=== PATIENT | female | born 1960 | race Caucasian/White ===

== ENCOUNTER → 2018-05-03 11:33 | Outpatient (CLI) | payer BC, SELFPAY ==
[2018-05-03 12:03] LABS: Abs Immature Grans 0.01 k/cumm (0.0-0.09); Absolute Basophil Count 0.02 k/cumm (0.0-0.2); Absolute Eosinophil Count 0.18 k/cumm (0.0-0.7); Absolute Lymphocyte Count 1.94 k/cumm (1.2-3.4); Absolute Monocyte Count 0.58 k/cumm (0.11-0.7); Absolute Neutrophil Count 5.26 k/cumm (1.2-6.7); Basophils % 0.3; Eosinophils % 2.3; HCT 36.7 % (36.0-46.0); HGB 12.2 g/dL (12.0-15.5); Immature Grans % 0.1; Lymphocytes % 24.3; Mean Corp. HGB Concentration 33.2 g/dL (32.0-36.0); Mean Corpuscular Hemoglobin 28.8 pg (27.0-33.0); Mean Corpuscular Volume 86.8 fL (80-95); Mean Platelet Volume 9.5 fL (8.0-11.0); Monocytes % 7.3; Neutrophils % 65.7; Platelet Count 271 x1000/uL (130-400); RBC 4.23 m/cumm (4.00-5.20); RBC Distribution Width 14.5 % (11.7-14.6); White Blood Cell Count 7.99 k/cumm (4.4-10.8)
[2018-05-03 12:15] LABS: ALT 26 U/L (12-78); AST 18 U/L (15-37); Albumin 3.4 g/dL (3.4-5.0); Alkaline Phosphatase 98 U/L (46-116); Anion Gap 8.8 mmol/L (3-11); BUN 20 mg/dL (7-18); Bilirubin, Total 0.9 mg/dL (0.2-1.0); CO2 25.2 mmol/L (21.0-32.0); CREATININE 0.87 mg/dL (0.55-1.02); Calcium 9.1 mg/dL (8.5-10.1); Chloride 104 mmol/L (98-107); Glucose 97 mg/dL (70-100); Sodium 138 mmol/L (136-145); Total Protein 7.3 g/dL (6.4-8.2)
[2018-05-03 12:21] LABS: Hemoglobin A1C 5.8 % (4.5-6.2)
[2018-05-03 12:22] LABS: COMMENT (LAB VIEW ONLY) 77.25 mg/dL; Microalb ug/mg Crea 3.8 ug/mg Cr
== END ==
PROVIDERS: PCP Family Medicine; Visit Provider Internal Medicine Medical Oncology
DX: E11.9 Type 2 diabetes mellitus without complications (principal); I10 Essential (primary) hypertension; D64.9 Anemia, unspecified; C50.411 Malignant neoplasm of upper-outer quadrant of right female breast; Z17.1 Estrogen receptor negative status [ER-]
CPT/HCPCS: 36415; 80053; 85027; 82043; 82570; 83036; 85025

== ENCOUNTER 2018-06-10 00:16 | Outpatient (CLI) | payer BC, SELFPAY ==
--- NOTE | 2018-06-10 10:29 | DI.US_ITS ---
SYMPTOMS/DIAGNOSIS: SWELLING, ? DVT, LYMPH EDEMA, I89.0, MALIGNANT NEOPLASM OF THORAX, C76.1, MALIGNANT NEOPLASM OF BREAST, C50.919 RIGHT UPPER EXTREMITY ULTRASOUND: Comparison is made with chest CT dated . The patient has had prior axillary dissection as well as right mastectomy. There is no evidence of deep venous thrombosis from the neck to the elbow. A cystic area measuring 2.2 x 0.8 x 1.5 cm is seen anterior to the right shoulder. It appears to represent fluid around the upper biceps tendon sheath. No adenopathy or suspicious mass is seen. IMPRESSION: No evidence of deep venous thrombosis or superficial venous thrombosis. There is fluid around the biceps tendon which could be within normal limits or could represent tenosynovitis.
== END 2018-06-10 00:36 ==
PROVIDERS: PCP Family Medicine; Visit Provider Family Medicine
DX: C76.1 Malignant neoplasm of thorax (principal); I89.0 Lymphedema, not elsewhere classified; C50.919 Malignant neoplasm of unspecified site of unspecified female breast; R22.31 Localized swelling, mass and lump, right upper limb
CPT/HCPCS: 93971

== ENCOUNTER 2018-06-10 10:07 | Outpatient (CLI) | payer BC, SELFPAY ==
[2018-06-10 10:46] LABS: Abs Immature Grans 0.01 k/cumm (0.0-0.09); Absolute Basophil Count 0.03 k/cumm (0.0-0.2); Absolute Eosinophil Count 0.19 k/cumm (0.0-0.7); Absolute Lymphocyte Count 1.98 k/cumm (1.2-3.4); Absolute Monocyte Count 0.38 k/cumm (0.11-0.7); Absolute Neutrophil Count 4.34 k/cumm (1.2-6.7); Basophils % 0.4; Eosinophils % 2.7; HCT 38.8 % (36.0-46.0); HGB 12.4 g/dL (12.0-15.5); Immature Grans % 0.1; Lymphocytes % 28.6; Mean Corpuscular Hemoglobin 27.9 pg (27.0-33.0); Mean Corpuscular Volume 87.4 fL (80-95); Mean Platelet Volume 9.7 fL (8.0-11.0); Monocytes % 5.5; Neutrophils % 62.7; Platelet Count 272 x1000/uL (130-400); RBC 4.44 m/cumm (4.00-5.20); RBC Distribution Width 13.9 % (11.7-14.6); White Blood Cell Count 6.93 k/cumm (4.4-10.8)
[2018-06-10 11:35] LABS: ALT 34 U/L (12-78); AST 24 U/L (15-37); Albumin 3.7 g/dL (3.4-5.0); Alkaline Phosphatase 112 U/L (46-116); Anion Gap 9.1 mmol/L (3-11); BUN 16 mg/dL (7-18); Bilirubin, Total 1.2 mg/dL (0.2-1.0); CO2 29.9 mmol/L (21.0-32.0); CREATININE 0.99 mg/dL (0.55-1.02); Calcium 9.4 mg/dL (8.5-10.1); Chloride 101 mmol/L (98-107); Estimated GFR 58.24 (mL/min/1.73m2); Glucose 92 mg/dL (70-100); Sodium 140 mmol/L (136-145); Total Protein 7.1 g/dL (6.4-8.2)
[2018-06-10 11:49] LABS: D-Dimer 548 ng/mlFEU (<500)
== END 2018-06-10 10:27 ==
PROVIDERS: PCP Family Medicine; Visit Provider Family Medicine
DX: I89.0 Lymphedema, not elsewhere classified (principal); C50.919 Malignant neoplasm of unspecified site of unspecified female breast; M79.89 Other specified soft tissue disorders
CPT/HCPCS: 36415; 80053; 85025; 85379

== ENCOUNTER 2018-09-12 11:08 | Outpatient (CLI) | payer BC, SELFPAY ==
[2018-09-12 13:22] LABS: HCT 38.6 % (36.0-46.0); HGB 12.8 g/dL (12.0-15.5); Mean Corp. HGB Concentration 33.2 g/dL (32.0-36.0); Mean Corpuscular Hemoglobin 28.4 pg (27.0-33.0); Mean Corpuscular Volume 85.6 fL (80-95); Mean Platelet Volume 10.3 fL (8.0-11.0); Platelet Count 263 x1000/uL (130-400); RBC 4.51 m/cumm (4.00-5.20); RBC Distribution Width 14.8 % (11.7-14.6); White Blood Cell Count 7.69 k/cumm (4.4-10.8)
[2018-09-12 13:38] LABS: ALT 36 U/L (12-78); AST 29 U/L (15-37); Albumin 3.7 g/dL (3.4-5.0); Alkaline Phosphatase 116 U/L (46-116); Anion Gap 7.7 mmol/L (3-11); BUN 15 mg/dL (7-18); Bilirubin, Total 1.7 mg/dL (0.2-1.0); CO2 30.3 mmol/L (21.0-32.0); CREATININE 0.84 mg/dL (0.55-1.02); Calcium 9.8 mg/dL (8.5-10.1); Chloride 102 mmol/L (98-107); Glucose 95 mg/dL (70-100); Potassium 3.9 mmol/L (3.5-5.1); Sodium 140 mmol/L (136-145); TSH (W/Ref FT4) 1.95 uIU/mL (0.358-3.74)
== END 2018-09-12 11:28 ==
PROVIDERS: PCP Family Medicine; Visit Provider Family Medicine
DX: I10 Essential (primary) hypertension (principal); D64.9 Anemia, unspecified; R53.83 Other fatigue
CPT/HCPCS: 36415; 80053; 85027; 84443

== ENCOUNTER 2018-12-19 08:12 | Outpatient (CLI) | payer BC, SELFPAY ==
[2018-12-19 08:27] LABS: Abs Immature Grans 0.01 k/cumm (0.0-0.09); Absolute Basophil Count 0.04 k/cumm (0.0-0.2); Absolute Eosinophil Count 0.18 k/cumm (0.0-0.7); Absolute Monocyte Count 0.48 k/cumm (0.11-0.7); Absolute Neutrophil Count 5.37 k/cumm (1.2-6.7); Basophils % 0.5; Eosinophils % 2.3; HCT 38.9 % (36.0-46.0); HGB 12.8 g/dL (12.0-15.5); Immature Grans % 0.1; Lymphocytes % 23.8; Mean Corp. HGB Concentration 32.9 g/dL (32.0-36.0); Mean Corpuscular Hemoglobin 28.2 pg (27.0-33.0); Mean Corpuscular Volume 85.7 fL (80-95); Mean Platelet Volume 9.8 fL (8.0-11.0); Neutrophils % 67.3; Platelet Count 261 x1000/uL (130-400); RBC 4.54 m/cumm (4.00-5.20); RBC Distribution Width 14.2 % (11.7-14.6); White Blood Cell Count 7.98 k/cumm (4.4-10.8)
[2018-12-19 08:39] LABS: ALT 26 U/L (12-78); AST 20 U/L (15-37); Albumin 3.6 g/dL (3.4-5.0); Alkaline Phosphatase 123 U/L (46-116); Anion Gap 11.2 mmol/L (3-11); BUN 17 mg/dL (7-18); Bilirubin, Total 1.4 mg/dL (0.2-1.0); CO2 26.8 mmol/L (21.0-32.0); CREATININE 0.89 mg/dL (0.55-1.02); Calcium 9.2 mg/dL (8.5-10.1); Chloride 101 mmol/L (98-107); Glucose 116 mg/dL (70-100); Potassium 3.7 mmol/L (3.5-5.1); Sodium 139 mmol/L (136-145); Total Protein 7.5 g/dL (6.4-8.2)
== END 2018-12-19 08:32 ==
PROVIDERS: PCP Family Medicine; Visit Provider Internal Medicine Medical Oncology
DX: C50.411 Malignant neoplasm of upper-outer quadrant of right female breast (principal); Z17.1 Estrogen receptor negative status [ER-]
CPT/HCPCS: 36415; 80053; 85025

== ENCOUNTER 2019-05-20 05:12 | Emergency (ER) | payer BC, SELFPAY ==
[2019-05-20 05:17] VITALS: BP 130/77; PULSE 77; RESP 17; TEMP 36.1; O2SAT 96
--- NOTE | 2019-05-20 05:29 | W.ED.GENAD ---
Discharge Plan Disposition Patient Disposition: HOME Condition: Good Discharge Details Chief Complaint: RespSymp Clinical Impression: Acute streptococcal pharyngitis Primary Care Provider: Smita Quintero ED Provider: Flo Omalley [place] Meds and New Rx's Prescriptions: New azithromycin 250 mg tablet 250 mg PO DAILY 4 Days Qty: 4 RF: 0 Continued escitalopram oxalate 20 mg tablet 20 mg PO HS Qty: 90 RF: 5 CALCIUM/MAG OXIDE/ZN 2 tab PO DAILY RF: 0 ibuprofen 800 MG tablet 800 mg PO QID PRNRF: 0 albuterol sulfate [ProAir HFA] 8.5 GM HFA aerosol inhaler 1 - 2 puff Inhalation Q6H PRN Qty: 1 RF: 12 metformin 1,000 mg tablet 1,000 mg PO DAILY Qty: 90 RF: 4 hydrochlorothiazide 12.5 mg tablet 12.5 mg PO DAILY Qty: 90 RF: 12 Discharge Instructions Instructions: Strep Throat (ED) Additional Instructions: Take antibiotics as prescribed. Use ibuprofen or acetaminophen for pain and fever. Cepacol lozenges to help with throat discomfort. Salt water gargles will likely help with throat discomfort as well. Drink plenty of fluids and stay hydrated. Follow-up with primary care next week. Return to ED for difficulty breathing, inability to swallow, mental status changes, other concerns or problems. Referrals: Smita Quintero MD, [place] [Primary Care Provider] - Medical Decision Making Patient presenting with upper respiratory symptoms with chief complaint of sore throat and left ear pain. She is not febrile. Vital signs are normal. Her pulse oximetry is normal. Her left ear is erythematous and opacified. Her oropharynx is erythematous with posterior oral pharyngeal exudate and asymmetrical swelling. She complains of significant throat pain. Concern for retropharyngeal abscess. Will place IV and start her on fluid hydration. Morphine for pain. Laboratory studies to include CBC and BMP. Will obtain CT of the neck with IV contrast as well as chest x-ray. Patient rapid strep is positive. Patient has anaphylaxis to penicillin. She has intolerance to clindamycin with persistent vomiting and diarrhea. Will treat with IV azithromycin while waiting for CT scan to be completed. If there is no abscess will dose with Decadron and plan discharge on a azithromycin. CT scan shows no evidence of retropharyngeal abscess. Epiglottis is normal. Chest x-ray without consolidation. Soft tissue density felt to be mass versus hiatal hernia. Patient reports known hiatal hernia. Laboratory studies unremarkable other than elevated white count. Patient will finish the IV Zithromax. She will receive a dose of IV Decadron. She will be discharged home on a azithromycin to 50 mg p.o. daily for 4 days. She may use ibuprofen and acetaminophen for pain. Cepacol lozenges for throat comfort. Push fluids to stay hydrated. Follow-up with primary care next week. Return to ED for mental status changes, inability to swallow, difficulty breathing. Lab Data Lab results reviewed: Yes I reviewed the patient's lab results. HPI General Mode of arrival: ambulatory. Date/Time Provider Initiated Documentation: 05/20/19 05:27. Limitations to Documentation: no limitations. Information obtained by: patient. HPI Narrative: Patient presents to ED with complaint of sore throat and left ear pain. Patient reports not feeling well for the last week or so. She has had more fatigue and weakness than usual. She occasionally feels short of breath. On Wednesday she developed sore throat, congestion, cough, left ear pain. She was leaving for vacation that day. She came back early because she felt so unwell. She now has significant throat pain to the point where even swallowing water causes significant discomfort. She has had no fever that she is aware of. She has had no sweats or chills. She denies any GI symptoms. She has some chronic right-sided chest pain from her previous surgeries and cancer. This is been a little worse over the last month or so. She has tried [id number] medications including ibuprofen without relief of pain and presents now for evaluation. Related Data Home Medications Medication Instructions Recorded Confirmed Calcium/Mag Oxide/Zn 2 tab PO DAILY 02/27/13 05/20/19 ibuprofen 800 mg PO QID PRN tab-cap 05/28/16 05/20/19 albuterol sulfate [ProAir HFA] 1 - 2 puff INHALATION Q6H PRN #1 01/20/18 05/20/19 inhaler escitalopram oxalate 20 mg tablet 20 mg PO HS #90 tab 10/24/18 05/20/19 hydrochlorothiazide 12.5 mg tablet 12.5 mg PO DAILY #90 tab-cap 02/09/19 05/20/19 metformin 1,000 mg tablet 1,000 mg PO DAILY #90 tab-cap 02/09/19 05/20/19 azithromycin 250 mg PO DAILY 4 Days #4 tab 05/20/19 Previous Rx's Medication Instructions Recorded albuterol sulfate [ProAir HFA] 1 - 2 puff INHALATION Q6H PRN #1 01/20/18 inhaler escitalopram oxalate 20 mg tablet 20 mg PO HS #90 tab 10/24/18 hydrochlorothiazide 12.5 mg tablet 12.5 mg PO DAILY #90 tab-cap 02/09/19 metformin 1,000 mg tablet 1,000 mg PO DAILY #90 tab-cap 02/09/19 azithromycin 250 mg PO DAILY 4 Days #4 tab 05/20/19 Allergies Allergy/AdvReac Type Severity Reaction Status Date / Time Penicillins Allergy Severe Anaphylaxsi Unverified 05/01/19 13:22 s clindamycin AdvReac Severe N/V Unverified 05/01/19 13:22 codeine AdvReac Unknown Nausea Unverified 05/01/19 13:22 Sulfa (Sulfonamide AdvReac Unknown GI Unverified 05/01/19 13:22 Antibiotics) MOLDS/SMUTS Allergy Mild CONGESTION Uncoded 05/01/19 13:22 CAT/FELINE Allergy Unknown Nausea Uncoded 05/01/19 13:22 General Stated Complaint: RespSymp ISAAK: 3 Review of Systems Review of Systems 07/10 Review of Systems completed and is negative except as stated above in HPI (Systems reviewed: Const, Eyes, ENT, Resp, CV, GI, , MSK, Skin, Neuro) [facility], [facility] Medical History Abnormal cervical Papanicolaou smear (Resolved) Anemia (Resolved 09/06/17) Asthma (Chronic) Closed fracture of one rib (Resolved) Depressive disorder (Chronic 08/26/93) Diabetes Essential hypertension (Chronic 11/03/13) Hx of malignant neoplasm of breast Hypokalemia (Resolved) 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) Malignant neoplasm of female breast (Chronic 06/23/10) Migraine (Chronic) Obesity, Class III, BMI 40-49.9 (morbid obesity) Palliative care patient (Chronic) Peripheral neuropathy (Chronic 05/14/14) 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) Spinal stenosis of lumbar region (Chronic 09/18/14) Surgical History (Updated 05/20/19 @ 05:50 by Vinita Luis) Biopsy, Soft Tissue (02/12/17) Breast, Lumpectomy Breast, Mastectomy Cervical Procedure (~1999) section Colonoscopy - IV Sedation (04/26/13) Endometrial Ablation (~2003) History of mastectomy (Chronic) knee repair (~08/2011) Status post colposcopy (Resolved) Tonsillectomy Tooth extraction Social History Smoking/Tobacco Use Status: Never Alcohol Intake: current Alcohol Intake frequency: holidays/special occasions only Alcohol type: beer and wine Drug use: Never Substance use type: former substance user Date of last use: as a teenager and marijuana Caregiver/Support person: No Household members: children Housing: house Communication Needs: None Do you need help understanding health information?: Rarely Pets and animals: Yes Pets and animals: cat(s) Sexually active: No Do you think of yourself as: straight/heterosexual Current gender identity: female What is your relationship status?: How often do you talk on the phone with friends or family?: three or more times per week How often do you get together with friends or relatives?: decline to answer How often do you attend sikh or uatsdin services?: decline to answer Do you belong to any clubs or organized social groups?: yes Panel score (0-1 are the most socially isolated patients): 2 What type of physical activity do you participate in: walking and swimming Duration: 15-30 minutes/day Frequency: 5-6 times per week Zabrina/Rastafarian: No preference Seatbelt use: always Drive intox or ride w/intox ross carrier driver: No Do you feel safe at home: Yes Do you feel safe in your relationship?: Yes Exam Narrative Exam Narrative: Vitals: Afebrile here. Vital signs are normal. Pulse oximetry is normal. Const: Obese female in NAD. HEENT: NC/AT. Normal facial exam. Right TM mildly erythematous. Left TM is erythematous and opacified. OP with erythema present. Exudate posterior with asymmetric swelling of the posterior oropharynx. Eyes: Normal conjunctiva and sclera. Neck: Supple. Trachea midline. Lungs: Normal respiratory effort. Lungs are clear. Cor: RRR without murmur/gallop. Good radial pulses. Neuro: A+O x 3. CN grossly in tact. Good strength and no focal deficit. Skin: Warm and dry without rash. Course Vital Signs Temperature 97.0 F L 05/20/19 05:17 Pulse 77 05/20/19 05:17 Respiratory Rate 17 05/20/19 05:17 Blood Pressure 130/77 05/20/19 05:17 Pulse Oximetry 96 05/20/19 05:17 Temperature 97.0 F L 05/20/19 05:17 Temperature Source Skin 05/20/19 05:17 Pulse 77 05/20/19 05:17 Respiratory Rate 17 05/20/19 05:17 Blood Pressure 130/77 05/20/19 05:17 Pulse Oximetry 96 05/20/19 05:17 Oxygen Delivery Method Room Air 05/20/19 05:17 Oxygen Flow Rate 0 05/20/19 05:17 Pain Level 10 05/20/19 05:17
--- NOTE | 2019-05-20 05:48 | DI.CT_ITS ---
SYMPTOM/DIAGNOSIS: SORE THROAT, POSTERIOR OP SWELLING CT NECK: Post contrast exam was performed. There is scarring at the right lung apex. There is mucous retention within ethmoid sinuses as well as at the floors of the maxillary sinuses. The mastoid air cells appear clear. The parotid and submandibular as well as thyroid glands are unremarkable. There is some prominence of the adenoids but no evidence of a drainable abscess or fluid collection. There are small, symmetric bilateral cervical lymph nodes. There are degenerative changes in the cervical spine. An incidental note is made of an empty sella. The visualized portions of the brain are unremarkable. IMPRESSION: Mildly prominent adenoids. No evidence of an abscess or evidence of chronic sinus disease.
--- NOTE | 2019-05-20 05:52 | DI.RAD_ITS ---
SYMPTOM/DIAGNOSIS: COUGH PA AND LATERAL CHEST: Comparison is made with 24 July 2017. The heart size is within normal limits. The aorta is mildly tortuous. There is a small hiatal hernia. The lungs appear clear. The patient is status post right mastectomy. There are surgical clips in the right axilla. IMPRESSION: No acute abnormality.
[2019-05-20 06:31] LABS: Abs Immature Grans 0.04 k/cumm (0.0-0.09); Absolute Basophil Count 0.03 k/cumm (0.0-0.2); Absolute Eosinophil Count 0.27 k/cumm (0.0-0.7); Basophils % 0.2; Eosinophils % 1.7; HCT 37.5 % (36.0-46.0); HGB 12.1 g/dL (12.0-15.5); Immature Grans % 0.3; Lymphocytes % 10.5; Mean Corp. HGB Concentration 32.3 g/dL (32.0-36.0); Mean Corpuscular Hemoglobin 27.2 pg (27.0-33.0); Mean Corpuscular Volume 84.3 fL (80-95); Monocytes % 7.6; Neutrophils % 79.7; Platelet Count 250 x1000/uL (130-400); RBC 4.45 m/cumm (4.00-5.20); RBC Distribution Width 15.3 % (11.7-14.6); White Blood Cell Count 15.98 k/cumm (4.4-10.8)
[2019-05-20 06:34] LABS: Absolute Lymphocyte Count 1.68 k/cumm (1.2-3.4); Absolute Monocyte Count 1.21 k/cumm (0.11-0.7); Absolute Neutrophil Count 12.74 k/cumm (1.2-6.7)
[2019-05-20] MEDS: MORPHine 10 MG/ML VIAL 2 MG IVP (06:34)
[2019-05-20] MEDS: Normal Saline 1,000 ML 1000 ML IV (06:35)
[2019-05-20 06:46] LABS: Anion Gap 10.6 mmol/L (3-11); BUN 19 mg/dL (7-18); CO2 26.4 mmol/L (21.0-32.0); Calcium 9.3 mg/dL (8.5-10.1); Chloride 105 mmol/L (98-107); Glucose 156 mg/dL (70-100); Potassium 3.4 mmol/L (3.5-5.1); Sodium 142 mmol/L (136-145)
--- NOTE | 2019-05-20 06:56 | NUR.NOTE ---
Azythromycin requested via telephone from pharmacy. advised med has been ordered with verbal understanding.Nursing Note:
[2019-05-20] MEDS: Omnipaque 350 MG/ML 100 ML BTL IJ (07:13)
[2019-05-20] MEDS: Normal Saline Flush 10 ML SYR IVP (07:14)
[2019-05-20] MEDS: AZITHROMYCIN 500 MG in Normal Saline 250 ML 250 MG IVPB (07:27)
--- NOTE | 2019-05-20 07:39 | DI.VRAD_ITS ---
EXAM: CT Neck With Contrast EXAM DATE/TIME: 05/20/2019 5:52 AM CLINICAL HISTORY: 58 years old, female; Other: Sorethroat, posterior op swelling TECHNIQUE: Imaging protocol: Computed tomography images of the neck with intravenous contrast. Radiation optimization: All CT scans at this facility use at least one of these dose optimization techniques: automated exposure control; mA and/or kV adjustment per patient size (includes targeted exams where dose is matched to clinical indication); or iterative reconstruction. Contrast material: OMNIPAQUE 350; Contrast volume: 100 ml; Contrast route: IV; COMPARISON: No relevant prior studies available. FINDINGS: Sinuses: There is a cyst or polyp in the left maxillary sinus. There is soft tissue opacification of some of the ethmoid air cells bilaterally. There is minimal mucoperiosteal thickening involving the maxillary sinuses bilaterally. Nasopharynx: Normal. Oropharynx: Minimal soft tissue changes are seen at the base of the tongue, possibly lymphatic tissue. Hypopharynx: Normal. Larynx: Normal. Normal epiglottis. Retropharyngeal space: Normal. Submandibular/Parotid glands: Normal. Glands are normal in size. Thyroid: Normal. No enlarged or calcified nodules. Lymph nodes: Normal. No lymphadenopathy. Trachea: Visualized trachea is unremarkable. Lungs: Soft tissue changes are seen in the right upper lobe suggesting fibrosis or subsegmental atelectasis. Vasculature: Accessory hemiazygos vein is noted. Bones/joints: There is narrowing of the intervertebral disc spaces at C4-5-6 consistent with degenerative disease. There is spondylosis of the cervical spine. Soft tissues: Empty sella is noted. IMPRESSION: 1. No pulmonary embolus. 2. Mild ethmoid and maxillary sinusitis. 3. Left maxillary sinus cyst or polyp. 4. Degenerative changes of the cervical spine. 5. Minimal soft tissue changes at the base of the tongue, possibly representing adenoids. Dictated and Authenticated by: Jay Leon MD. Ordering:BRUCE Rossi MD
--- NOTE | 2019-05-20 07:43 | DI.VRAD_ITS ---
EXAM: XR Chest, 2 Views EXAM DATE/TIME: 05/20/2019 7:19 AM CLINICAL HISTORY: 58 years old, female; Other: Cough TECHNIQUE: Imaging protocol: XR of the chest, 2 views. COMPARISON: [facility] PORTABLE CHEST ONE VIEW 07/24/2017 9:12 AM FINDINGS: Lungs: Unremarkable. No consolidation. Pleural space: Unremarkable. No pleural effusion. No pneumothorax. Heart/Mediastinum: Soft tissue density is seen superimposed over the medial aspect of the left lower lobe, a finding not present on the previous study, hiatus hernia or mass. Bones/joints: Unremarkable. Soft tissues: The patient is status post right mastectomy with surgical clips in the right axilla. IMPRESSION: Soft tissue density at the left base medially, suggesting mass or hiatus hernia. Status post right mastectomy. Dictated and Authenticated by: Jay Leon MD. Ordering:BRUCE Rossi MD
[2019-05-20] MEDS: Dexamethasone 10 MG/ML VIAL IVP (07:51)
[2019-05-20 08:24] VITALS: BP 127/84; PULSE 76; RESP 16; TEMP 36.6; O2SAT 96
== END 2019-05-20 08:34 | disposition home or self-care (01) ==
PROVIDERS: Emergency Provider Emergency Medicine; PCP Family Medicine
DX: J02.0 Streptococcal pharyngitis (principal); H92.02 Otalgia, left ear; E11.9 Type 2 diabetes mellitus without complications; Z79.84 Long term (current) use of oral hypoglycemic drugs; I10 Essential (primary) hypertension
CPT/HCPCS: 36415; 70491; 80048; 87880; 96361; 96365; 96375; 99285; 71046; 85025; 99284; J0456; J1100; J2270; J3490

== ENCOUNTER 2019-06-20 08:07 | Outpatient (CLI) | payer BC, SELFPAY ==
[2019-06-20 08:56] LABS: Abs Immature Grans 0.01 k/cumm (0.0-0.09); Absolute Basophil Count 0.02 k/cumm (0.0-0.2); Absolute Eosinophil Count 0.16 k/cumm (0.0-0.7); Absolute Lymphocyte Count 1.97 k/cumm (1.2-3.4); Absolute Monocyte Count 0.39 k/cumm (0.11-0.7); Absolute Neutrophil Count 4.43 k/cumm (1.2-6.7); Basophils % 0.3; Eosinophils % 2.3; HCT 36.6 % (36.0-46.0); Immature Grans % 0.1; Lymphocytes % 28.2; Mean Corp. HGB Concentration 32.8 g/dL (32.0-36.0); Mean Corpuscular Hemoglobin 27.9 pg (27.0-33.0); Mean Corpuscular Volume 85.1 fL (80-95); Mean Platelet Volume 9.3 fL (8.0-11.0); Monocytes % 5.6; Neutrophils % 63.5; Platelet Count 315 x1000/uL (130-400); RBC Distribution Width 15.5 % (11.7-14.6); White Blood Cell Count 6.98 k/cumm (4.4-10.8)
[2019-06-20 09:30] LABS: ALT 27 U/L (14-59); AST 20 U/L (15-37); Albumin 3.4 g/dL (3.4-5.0); Alkaline Phosphatase 97 U/L (46-116); BUN 13 mg/dL (7-18); Bilirubin, Total 1.3 mg/dL (0.2-1.0); CO2 25.2 mmol/L (21.0-32.0); CREATININE 0.84 mg/dL (0.55-1.02); Calcium 8.9 mg/dL (8.5-10.1); Glucose 106 mg/dL (70-100); Total Protein 6.8 g/dL (6.4-8.2)
[2019-06-20 09:46] LABS: Sodium 140 mmol/L (136-145)
[2019-06-20 09:47] LABS: Chloride 104 mmol/L (98-107); Potassium 3.8 mmol/L (3.5-5.1)
[2019-06-20 09:53] LABS: Anion Gap 10.8 mmol/L (3-11)
== END 2019-06-20 08:27 ==
PROVIDERS: PCP Family Medicine
DX: C50.911 Malignant neoplasm of unspecified site of right female breast (principal); Z17.1 Estrogen receptor negative status [ER-]
CPT/HCPCS: 36415; 80053; 85025

== ENCOUNTER 2019-07-08 13:14 | Emergency (ER) | payer BC, SELFPAY ==
[2019-07-08 13:30] VITALS: BP 127/83; RESP 18; TEMP 36.7; O2SAT 96
--- NOTE | 2019-07-08 15:35 | ED.GENADUL_ITS ---
Discharge Plan Disposition Patient Disposition: HOME Condition: Good Discharge Details Chief Complaint: EyeProblem Clinical Impression: Foreign body in eye Primary Care Provider: Smita Quintero ED Provider: Zaina Yousif Home Meds and New Rx's Prescriptions: Continued escitalopram oxalate 20 mg tablet 20 mg PO HS Qty: 90 RF: 5 prednisone 20 mg tablet 20 mg PO BID Qty: 10 RF: 0 CALCIUM/MAG OXIDE/ZN 2 tab PO DAILY RF: 0 ibuprofen 800 MG tablet 800 mg PO QID PRNRF: 0 albuterol sulfate [ProAir HFA] 8.5 GM HFA aerosol inhaler 1 - 2 puff Inhalation Q6H PRN Qty: 1 RF: 12 metformin 1,000 mg tablet 1,000 mg PO DAILY Qty: 90 RF: 4 hydrochlorothiazide 12.5 mg tablet 12.5 mg PO DAILY Qty: 90 RF: 12 Discharge Instructions Instructions: Erythromycin (Into the eye), Eye Foreign Body (ED) Additional Instructions: Please use the erythromycin ointment 1/2 inch to left eye 4 times daily for the next 5 days. Please call ophthalmology Wednesday to schedule reevaluation. If you develop discharge, fevers, visual changes, increased pain or other new/worsening symptoms please seek care urgently once again. Referrals: [facility] [Outside] Smita Quintero MD, [place] [Primary Care Provider] - Discharge Data Discharge Date/Time-TO BE ENTERED AT DEPARTURE: 07/08/19 16:03 Medical Decision Making Patient is a 59-year-old female presents today with chief complaint of left eye irritation. She reports that this is how she is felt historically when she has had pinkeye. States she awoke this morning and noted the eye to be crusted. States that it was slightly irritated yesterday evening but that the symptoms have progressed throughout the course the day. Does not wear contacts, no corrective lenses. Denies any change in her vision. Has noted the eye to be tearing throughout the course of the day. Feels that the eyes red. Pain worse prior to arrival and when using it. On exam, patient is resting comfortably. She is looking at her phone does not appear to be in any discomfort with her eyes. She has no injection, no disc harge. Pupils are equal and reactive. Patient was numbed with tetracaine, had full resolution of her discomfort. She was then stained with foreseen and evaluated with a slit lamp. A small cat hair was noted in the eye. This is able to be removed with Q-tip. Otherwise, no abnormalities. However, it has been in over the past 24 hours feel that treatment with erythromycin ointment follow-up with ophthalmology is appropriate. She is given strict return precautions. Initial dosing of erythromycin and to be dispensed, given the patient's with instructions. All of her questions and concerns were addressed and she is agreement this plan. HPI General Mode of arrival: ambulatory . Date/Time Provider Initiated Documentation: 07/08/19 14:47 . Limitations to Documentation: no limitations . Information obtained by: patient and RN notes reviewed . History of Present Illness 59 year old F presents to the emergency department with the chief complaint of left eye irritation, described as moderate, with intensity rated at 7. Quality is described as aching (itching), and is localized to the eyes. Patient reports no radiation. Patient started experiencing this day(s) (1) and it has been constant. No relieving factors improve symptom(s), No exacerbating factors reported . Patient notes no other symptoms.. Patient did receive the following treatments prior to arrival, none Related Data Home Medications Medication Instructions Recorded Confirmed Calcium/Mag Oxide/Zn 2 tab PO DAILY 02/27/13 05/23/19 ibuprofen 800 mg PO QID PRN tab-cap 05/28/16 05/23/19 albuterol sulfate [ProAir HFA] 1 - 2 puff INHALATION Q6H PRN #1 01/20/18 05/23/19 inhaler escitalopram oxalate 20 mg tablet 20 mg PO HS #90 tab 10/24/18 05/23/19 hydrochlorothiazide 12.5 mg tablet 12.5 mg PO DAILY #90 tab-cap 02/09/19 05/23/19 metformin 1,000 mg tablet 1,000 mg PO DAILY #90 tab-cap 02/09/19 05/23/19 prednisone 20 mg tablet 20 mg PO BID #10 tab 05/23/19 05/23/19 Previous Rx's Medication Instructions Recorded albuterol sulfate [ProAir HFA] 1 - 2 puff INHALATION Q6H PRN #1 01/20/18 inhaler escitalopram oxalate 20 mg tablet 20 mg PO HS #90 tab 10/24/18 hydrochlorothiazide 12.5 mg tablet 12.5 mg PO DAILY #90 tab-cap 02/09/19 metformin 1,000 mg tablet 1,000 mg PO DAILY #90 tab-cap 02/09/19 prednisone 20 mg tablet 20 mg PO BID #10 tab 05/23/19 Allergies Allergy/AdvReac Type Severity Reaction Status Date / Time Penicillins Allergy Severe Anaphylaxsi Unverified 05/23/19 15:37 s clindamycin AdvReac Severe N/V Unverified 05/23/19 15:37 codeine AdvReac Unknown Nausea Unverified 05/23/19 15:37 Sulfa (Sulfonamide AdvReac Unknown GI Unverified 05/23/19 15:37 Antibiotics) MOLDS/SMUTS Allergy Mild CONGESTION Uncoded 05/23/19 15:37 CAT/FELINE Allergy Unknown Nausea Uncoded 05/23/19 15:37 General Stated Complaint: EyeProblem ISAAK: 5 Review of Systems Constitutional Constitutional: Reports as per HPI, Denies chills, Denies fatigue, Denies feve r(s) and Denies headache(s) Eyes Eyes: Reports as per HPI ENT Ears, Nose, Mouth, and Throat: Denies headache(s) Cardiovascular Cardiovascular: Reports as per HPI, Denies chest pain and Denies lightheadedness Respiratory Respiratory: Denies cough Integumentary/Breasts Skin/Breast: Reports as per HPI, Denies rash, Denies skin pain and Denies skin swelling Neurologic Neurologic: Denies headache(s) and Denies radicular pain Endocrine Endocrine: Denies fatigue [facility] Medical History Abnormal cervical Papanicolaou smear (Resolved) 09/27/99 Anemia (Resolved 09/06/17) secondary to heavy menses; s/p ablation 2003. Still persistent heavy menses Asthma (Chronic) Closed fracture of one rib (Resolved) 08/26/97 Depressive disorder (Chronic 08/26/93) Diabetes Essential hypertension (Chronic 11/03/13) Hx of malignant neoplasm of breast 2009 recurrance 2012 Hypokalemia (Resolved) 07/22/17 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) Malignant neoplasm of female breast (Chronic 06/23/10) recurrent 09/08 plan double mastectomy S/P surgery, radiation and chemo bone scan scheduled 09/09 - hip pain ? 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 Migraine (Chronic) Obesity, Class III, BMI 40-49.9 (morbid obesity) Palliative care patient (Chronic) Peripheral neuropathy (Chronic 05/14/14) ? 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) Spinal stenosis of lumbar region (Chronic 09/18/14) mri 09/09 - no metastasis seen multi level moderate to severe spinal stenosis and foraminal encroachment ; epidural and neurosurgical consult in the works Surgical History Biopsy, Soft Tissue (02/12/17) right anterior chest wall mass at incision site, core biopsy = adenocarcinoma, invasive, ductal type, nuclear grade III Breast, Lumpectomy 2009- x3 to get clear margins followed by chemo and radiation Breast, Mastectomy right 2013- recurrent breast cancer- followed by chemotherapy Cervical Procedure (~1999) colposcopy section Colonoscopy - IV Sedation (04/26/13) DR. RODAS Endometrial Ablation (~2003) History of mastectomy (Chronic) Rt breast knee repair (~08/2011) Status post colposcopy (Resolved) 09/27/99 Tonsillectomy Tooth extraction wisdom tooth Social History Smoking/Tobacco Use Status: Never Alcohol Intake: current Alcohol Intake frequency: holidays/special occasions only Alcohol type: beer and wine Drug use: Never Substance use type: former substance user Date of last use: as a teenager and marijuana Caregiver/Support person: No Household members: children Housing: house Communication Needs: None Do you need help understanding health information?: Rarely Pets and animals: Yes Pets and animals: cat(s) Sexually active: No Do you think of yourself as: straight/heterosexual Current gender identity: female What is your relationship status?: How often do you talk on the phone with friends or family?: three or more times per week How often do you get together with friends or relatives?: decline to answer How often do you attend jain or mosque services?: decline to answer Do you belong to any clubs or organized social groups?: yes Panel score (0-1 are the most socially isolated patients): 2 What type of physical activity do you participate in: walking and swimming Duration: 15-30 minutes/day Frequency: 5-6 times per week Zabrina/Mandaeism: No preference Seatbelt use: always Drive intox or ride w/intox haul driver: No Do you feel safe at home: Yes Do you feel safe in your relationship?: Yes Exam Const General: cooperative, healthy appearing, comfortable, no acute distress, well developed and well groomed Nutritional Appearance: average body habitus and well nourished Orientation: alert, awake and oriented x3 HENMT Head: normal to inspection, normocephalic and atraumatic Ears: hearing grossly normal bilaterally and external ears normal General nose exam: external nose normal and nares normal Face and sinus: normal facial exam and face symmetric Mouth: oral mucosae normal, lip normal and moist mucous membranes Eyes General: appearance normal, both eyes and all related structures Visual Hollins: normal visual hollins by confrontation Alignment and Position: alignment normal and position normal Periorbital: periorbital findings normal Eyelids: eyelids normal and other (eyelids everted, no FB noted) Conjunctivae: conjunctivae normal Cornea: corneas normal and fluorescein used (fine cat hair found in the patients eye) Pupils: PERRL, normal by confrontation and accommodation normal EOM: EOM intact bilaterally Resp Effort & Inspection: normal respiratory effort, able to speak in complete sentences and no respiratory distress Skin General skin exam: no rashes or lesions noted Neuro General: alert, awake and oriented x3 Cranial Nerves: CN's II-XI intact bilaterally Cognition: normal cognition Speech: speech normal Gait: normal gait Psych Appearance: grossly normal and well kempt Mental Status: mental status grossly normal Speech and Movement: speech and movement normal Course Vital Signs Vital signs: Vital Signs Temperature 36.7 C 07/08/19 13:30 Respiratory Rate 18 07/08/19 13:30 Blood Pressure 127/83 07/08/19 13:30 Pulse Oximetry 96 07/08/19 13:30 Temperature 36.7 C 07/08/19 13:30 Temperature Source Skin 07/08/19 13:30 Respiratory Rate 18 07/08/19 13:30 Respiratory Effort Non-Labored 07/08/19 13:35 Blood Pressure 127/83 07/08/19 13:30 Blood Pressure Position Sitting 07/08/19 13:30 Pulse Oximetry 96 07/08/19 13:30 Pain Level 7 07/08/19 13:30
[2019-07-08] MEDS: Fluorescein STRIPS 100/BOX 1 MG OP (15:40)
[2019-07-08] MEDS: Tetracaine 0.5% 4 ML BTL OP (15:40)
== END 2019-07-08 16:03 | disposition home or self-care (01) ==
PROVIDERS: Emergency Provider Physician Assistant; PCP Family Medicine
DX: T15.92XA Foreign body on external eye, part unspecified, left eye, initial encounter (principal); X58.XXXA Exposure to other specified factors, initial encounter
CPT/HCPCS: 99283

== ENCOUNTER 2019-08-30 09:11 | Outpatient (CLI) | payer BC, SELFPAY ==
--- NOTE | 2019-08-30 10:09 | DI.RAD_ITS ---
EXAM: XR RIBS RT PA CHEST 3V INDICATION: r rib pain over radiation site, pleurodynia, R07.81, H/O RT BREAST CA COMPARISON: XR CHEST 2V PA LATERAL from 05/20/2019 TECHNIQUE: 2D digital imaging was performed. FINDINGS: The heart size is normal. The aorta is mildly tortuous. The lungs appear clear. Surgical clips are seen in the right axilla. A marker was placed over the area of the patient's pain over the lower ri ght ribs. No fracture, lytic or blastic lesion is seen. There is no evidence of pneumothorax. A sm all hiatal hernia is seen. IMPRESSION: No acute abnormality.
== END 2019-08-30 09:31 ==
PROVIDERS: PCP Family Medicine; Visit Provider Family Medicine
DX: R07.81 Pleurodynia (principal); Z85.3 Personal history of malignant neoplasm of breast; Z92.3 Personal history of irradiation
CPT/HCPCS: 71046; 71100

== ENCOUNTER 2019-10-04 08:12 | Outpatient (CLI) | payer BC, SELFPAY ==
[2019-10-04 08:28] LABS: Abs Immature Grans 0.02 k/cumm (0.0-0.09); Absolute Basophil Count 0.03 k/cumm (0.0-0.2); Absolute Lymphocyte Count 2.18 k/cumm (1.2-3.4); Absolute Monocyte Count 0.46 k/cumm (0.11-0.7); Absolute Neutrophil Count 5.35 k/cumm (1.2-6.7); Basophils % 0.4; Eosinophils % 2.4; HCT 37.6 % (36.0-46.0); HGB 12.3 g/dL (12.0-15.5); Immature Grans % 0.2 %; Lymphocytes % 26.5; Mean Corp. HGB Concentration 32.7 g/dL (32.0-36.0); Mean Corpuscular Hemoglobin 27.3 pg (27.0-33.0); Mean Corpuscular Volume 83.4 fL (80-95); Mean Platelet Volume 9.4 fL (8.0-11.0); Monocytes % 5.6; Neutrophils % 64.9; Platelet Count 356 x1000/uL (130-400); RBC 4.51 m/cumm (4.00-5.20); RBC Distribution Width 14.7 % (11.7-14.6); White Blood Cell Count 8.24 k/cumm (4.4-10.8)
[2019-10-04 08:46] LABS: ALT 30 U/L (14-59); AST 24 U/L (15-37); Albumin 3.4 g/dL (3.4-5.0); Alkaline Phosphatase 105 U/L (46-116); Anion Gap 11.9 mmol/L (3-11); BUN 15 mg/dL (7-18); Bilirubin, Total 1.1 mg/dL (0.2-1.0); CO2 28.1 mmol/L (21.0-32.0); CREATININE 0.82 mg/dL (0.55-1.02); Chloride 102 mmol/L (98-107); Glucose 130 mg/dL (74-106); Potassium 3.6 mmol/L (3.5-5.1); Sodium 142 mmol/L (136-145); Total Protein 7.4 g/dL (6.4-8.2)
== END 2019-10-04 08:32 ==
PROVIDERS: PCP Family Medicine; Visit Provider Internal Medicine Hematology & Oncology
DX: C50.911 Malignant neoplasm of unspecified site of right female breast (principal); Z17.1 Estrogen receptor negative status [ER-]
CPT/HCPCS: 36415; 80053; 85025

== ENCOUNTER 2020-09-13 15:03 | Outpatient (REF) | payer MEDICARE, BC, SELFPAY ==
[2020-09-16 16:07] LABS: COVID-19 RT-PCR UVMMC Result Negative (Negative)
== END 2020-09-13 15:23 ==
LOC: LBN 15:03
PROVIDERS: PCP Family Medicine; Visit Provider Family Medicine
DX: J06.9 Acute upper respiratory infection, unspecified (principal)
CPT/HCPCS: U0003

== ENCOUNTER 2020-09-26 03:40 | Outpatient (CLI) | payer MEDICARE, BC, SELFPAY ==
[2020-09-26 15:48] LABS: HCT 39.5 % (36.0-46.0); HGB 12.4 g/dL (11.2-15.7); MCH 25.9 pg (27.0-33.0); MCHC 31.4 % (32.0-36.0); MCV 82.6 fL (80-95); MPV 9.8 fL (8.0-11.0); Platelet Count 338 10^3/uL (130-400); RBC 4.78 10^6/uL (3.93-5.22); RDW 15.8 % (11.7-14.6); RDW-SD 47.7 fL; WBC 10.75 10^3/uL (4.4-10.8)
[2020-09-26 16:57] LABS: Microalb ug/mg Crea 13.4 ug/mg Cr
[2020-09-26 17:23] LABS: ALT 35 U/L (14-59); AST 25 U/L (15-37); Albumin 3.8 g/dL (3.4-5.0); Alkaline Phosphatase 126 U/L (46-116); Anion Gap 7.8 mmol/L (3-11); BUN 20 mg/dL (7-18); Bilirubin, Total 0.9 mg/dL (0.2-1.0); CO2 29.2 mmol/L (21.0-32.0); CREATININE 0.92 mg/dL (0.55-1.02); Calcium 9.8 mg/dL (8.5-10.1); Chloride 101 mmol/L (98-107); Glucose 105 mg/dL (74-106); Potassium 3.9 mmol/L (3.5-5.1); Sodium 138 mmol/L (136-145); TSH (W/Ref FT4) 2.49 uIU/mL (0.36-3.74); Total Protein 7.2 g/dL (6.4-8.2)
[2020-09-26 18:01] LABS: Hemoglobin A1C 6.7 % (<5.7)
== END 2020-09-26 04:00 ==
PROVIDERS: PCP Family Medicine; Visit Provider Family Medicine
DX: E11.9 Type 2 diabetes mellitus without complications (principal); I10 Essential (primary) hypertension; R53.83 Other fatigue
CPT/HCPCS: 36415; 80053; 85027; 82043; 82570; 83036; 84443

== ENCOUNTER 2020-10-17 04:29 | Outpatient (CLI) | payer MEDICARE, BC, SELFPAY ==
[2020-10-18 22:16] LABS: COVID-19 RT-PCR Result NEGATIVE (Negative)
== END 2020-10-17 04:49 ==
PROVIDERS: PCP Family Medicine; Visit Provider Family Medicine
DX: R53.83 Other fatigue (principal)
CPT/HCPCS: U0003

== ENCOUNTER 2020-10-21 01:18 | Outpatient (CLI) | payer MEDICARE, BC, SELFPAY ==
--- NOTE | 2020-10-21 07:00 | DI.NM_ITS ---
APPROVED REPORT Exam: Exercise Treadmill Patient Location: Out-Patient Room/Bed: Stress Nurse: Mabel Acosta RN Ordering Provider:RAFAEL RIVERA, Contact Number: [phone] BMI: 51.90 Baseline Rhythm: 1DHB Indications: Fatigue, chest pain. Medical History Medical History: Anemia, Asthma, Depression, DM, HTN, Hypokalemia, Lymphedema Cardiac Medications: Hydrochlorothiazide, Vitamin supplement (magnesium, zinc, calcium), Paclitaxel ( chemotherapy drug) Allergies: Penicillins, Clindamycin, Sulfa antibiotics, Codeine Cardiac Risk Factors: HTN, DM, Asthma, Obesity Previous Cardiac Procedures: None. Pretest Chest Pain Characteristics: None. Fatigue present. Exercise History: Sedentary Physical Disabilities: None Lung Sounds: Clear to auscultation Heart Sounds: Regular Stress Test Details Test: Exercise stress testing was performed using a Owen protocol. Nuclear Acquisition: Rest Tc-99m/Stress Tc-99m 1 day Rest Isotope: Tc-99m Sestamibi. Dose: 12.2 Date: 10/21/20 Injection Time: 0845 Stress Isotope: Tc-99m Sestamibi. Dose: 37.7 Date: 10/21/20 Injection Time: 1030 HR Resting HR Supine: 65 bpm Max Heart Rate (APMHR): 162.787305 bpm Resting HR Standin bpm Target HR (85% APMHR): 137.607698 bpm Max HR Achieved: 158 bpm % of APMHR: 97.53 Recovery HR: 89 bpm HR response to stress: Normal HR response to stress BP Resting BP Supine: 132/82 mmHg Resting BP Standin/72 mmHg Max BP: 170/88 mmHg Recovery BP: 140/82 mmHg BP response to stress: Normal blood pressure response to stress. ECG Resting ECst degree AV block Ectopy: None Stress ECG: Sinus Tachycardia ST Change: No significant ST segment changes noted Arrhythmia: None. Recovery ECst degree AV block, , Clear, Sinus Rhythm, Sinus Bradycardia Recovery ST Change: No significant ST segment changes noted Recovery Arrhythmia: None Clinical Reason for Termination: Fatigue, Dyspnea Stress Symptoms: General Fatigue, Dyspnea Exercise duration: 5 min59 sec Highest Stage Reached: Stage 2: 2.5 mph at 12% grade. Exercise capacity: 7.05 METs Thornton Treadmill Score: 5.0 Rate Pressure Product: [id number] Stress ECG Conclusion 1. Patient exercised for 6 minutes (7 METS). 2. Exercise was stopped due to fatigue. Blood pressure and heart rate response were normal. 3. There was no evidence of ischemia on the ECG portion of the exam. Thornton Treadmill Score is 5.0 which is Low risk. Stress Test Summary STAGE Time (mins) Speed (mph) Grade (%) HR BP SYMPTOMS METS Supine 65 132/82 Standing 72 128/72 1 3 1.7 10 128 154/82 SpO2 96% 4.6 2 6 2.5 12 158 SpO2 90% 7 1 min recovery 136 168/90 3 min recovery 96 170/88 SpO2 98% 6 min recovery 89 140/82 MPI Conclusion The ejection fraction was 65% with stress. There were no wall motion abnormalities. There was no evidence of ischemia on the imaging portion exam. This represents a normal SPECT stress test. Radiologist Interpretation Radiologist agrees with Meter Reader Inspector's Interpretation. Radiologist Interpretation by: Yajaira Norris MD Interpretation Date/Time: 10/22/2020 16:11:01
== END 2020-10-21 01:38 ==
PROVIDERS: PCP Family Medicine; Visit Provider Family Medicine
DX: R07.9 Chest pain, unspecified (principal); R53.83 Other fatigue; I10 Essential (primary) hypertension; E11.9 Type 2 diabetes mellitus without complications; J45.909 Unspecified asthma, uncomplicated; E66.9 Obesity, unspecified
CPT/HCPCS: 78452; 93016; 93018; 93017

== ENCOUNTER 2020-10-23 19:36 | Emergency (ER) | payer MEDICARE, BC, SELFPAY ==
[2020-10-23] VITALS (12 sets, daily range): BP systolic 115–136; BP diastolic 64–92; PULSE 77–92; RESP 16–22; TEMP 36–36.5; O2SAT 95–99
--- NOTE | 2020-10-23 19:37 | W.ED.GENAD ---
Discharge Plan Disposition Patient Disposition: HOME Condition: Fair Discharge Details Clinical Impression: Multiple contusions, DIANA (acute kidney injury) Primary Care Provider: Smita Quintero ED Provider: Zaina Yousif Home Meds and New Rx's Prescriptions: Continued anastrozole 1 mg tablet 1 mg PO DAILY RF: 0 CALCIUM/MAG OXIDE/ZN 2 tab PO DAILY RF: 0 albuterol sulfate [ProAir HFA] 90 mcg/actuation HFA aerosol inhaler 1 - 2 puff Inhalation Q6H PRN Qty: 1 RF: 12 escitalopram oxalate 20 mg tablet 20 mg PO HS Qty: 90 RF: 5 hydrochlorothiazide 12.5 mg tablet 12.5 mg PO DAILY Qty: 90 RF: 12 nystatin 100,000 unit/gram powder 1 applic TP BID PRNRF: 0 Discharge Instructions Instructions: Contusion in Adults (ED) Additional Instructions: Please continue to encourage water intake. Gentle stretching and ambulation to help with discomfort of your back and prevent muscle spasms. Heat or ice to affected area to help with pain. May continue with topical options such as Lidoderm patch. Please contact your primary care tomorrow to schedule follow-up appointment. You should have your kidney function reassessed Wednesday. If you develop difficulty breathing, shortness of breath, severe pain, vomiting or the new/worsening symptoms to seek care urgently once again. Referrals: Smita Quintero MD, [place] [Primary Care Provider] - Medical Decision Making Patient is a pleasant 60-year-old female presenting today after falling on a sledding hill. She reports that she had gotten off of her own slide was walking down a hill when a large teenager, traveling at a high rate of speed, struck her from the back. She subsequently went up in the air and landed on the left side. Is endorsing pain in the left lower ribs as well as left abdomen. She denies striking her head. No loss of conscious. Denies any nausea vomiting. Does not note any weakness. No incontinence. Denies any sensory deficits. Denies any pain in her back. On exam, patient appears uncomfortable, particularly with movement. She is splinting the left side. Lung sounds are clear, normal cardiac exam. Abdomen is pertinent for left upper quadrant tenderness. No guarding or peritoneal findings noted. She is focally tender over the left lateral ribs with question of some crepitus with deeper palpation. Body habitus does make this assessment slightly more difficult. She has no saddle paresthesias. No midline tenderness of the cervical, thoracic or lumbar spine. Good range of motion of her neck. Patient requesting Tylenol for analgesia as well as Lidoderm patch. Plan to CT chest, abdomen, pelvis. Her history does suggest fairly significant traumatic injury and I am concerned for potential internal organ damage. I did review the patient's chart, her GFR is always been over 60 and she did have this checked last month. I do not feel that waiting for creatinine is needed at this time. CT reviewed by myself with no significant pathology noted. Awaiting read from radiologist. Labs reviewed. Patient has mild white count of 11.8. Patient's BUN is elevated at 26. Her creatinine is elevated at 2.0 with a GFR of 25. Again, that the patient's clinical history. I discussed the findings with the patient. We will hydrate her with fluids. She denies any recent illness. However, may be a result of dehydration from her activities of the day. FINDINGS: Thyroid: The visualized thyroid gland is unremarkable. Lungs: No acute tracheobronchial abnormalities. No infiltrates or edema. There is localized subsegmental atelectasis and pleural/parenchymal scarring in the anterolateral right upper lobe suggesting chronic post treatment related changes in this region, with local surgical clips in the right axilla and sclerotic changes in the ribs, possibly prior radiation therapy. No pulmonary mass lesions are identified. Pleural spaces: No pleural effusions. No pneumothorax. Heart: Heart size normal. Mediastinal space: Moderate-sized hiatal hernia. Pulmonary arteries: The pulmonary arteries demonstrate no gross abnormality. Aorta: Mild aortic ectasia/tortuosity. No mediastinal hematoma. No aortic dissection. Lymph nodes: No supraclavicular or axillary adenopathy. No mediastinal or hilar adenopathy. Bones/joints: No acute osseous abnormalities are identified. Chronic appearing fracture of the right anterior 3rd and 4th ribs, although new since 2017. Soft tissues: Prior mastectomies. No acute soft tissue changes. IMPRESSION: 1. No acute thoracic injuries are identified. 2. Bilateral mastectomies with chronic appearing post treatment changes in the anterolateral right upper lobe, adjacent ribs, and right axilla. No local adenopathy or suspected residual/recurrent mass lesion. 3. Chronic appearing nondisplaced fractures of the right anterior 3rd and 4th ribs. 4. Moderate-sized hiatal hernia FINDINGS: Mediastinal space: Moderate-sized hiatal hernia. Liver: Normal contour. No mass lesions. No intrahepatic biliary ductal dilatation. Gallbladder and bile ducts: The gallbladder is partially contracted but otherwise unremarkable. Nondilated biliary system. Pancreas: Normal. No inflammatory changes or ductal dilation. Spleen: Normal. No splenomegaly. Adrenal glands: Normal. No adrenal mass. Kidneys and ureters: No acute abnormalities. No hydronephrosis or hydroureter. No urinary tract stones are identified. Stomach and bowel: The mid and distal stomach were unremarkable. The small bowel is normal with no evidence of obstruction. There is a moderate amount of stool and gas distributed throughout the colon suggesting constipation. No acute colonic injuries. Appendix: The appendix is normal in caliber and demonstrates no evidence of appendicitis. Intraperitoneal space: No free fluid or air. Vasculature: No acute process. No abdominal aortic aneurysm. Lymph nodes: No adenopathy. Urinary bladder: Unremarkable as visualized. Reproductive: Prior hysterectomy. Bones/joints: No acute osseous abnormalities. Moderate disc degenerative changes L2-L3, L4-L5, and L5-S1. Moderate-severe central canal stenosis L2-L3 and L3-L4 with moderate central stenosis at L4-L5 and mild stenosis at L5-S1. Soft tissues: Very small fatty umbilical hernia . No evidence of associated bowel herniation or bowel obstruction. IMPRESSION: 1. No acute injuries in the abdomen/pelvis. 2. Moderate-sized hiatal hernia. 3. Moderate gas and stool throughout the colon suggesting constipation. 4. Moderate-severe multilevel lumbar spinal stenosis. 5. Additional non-emergent findings detailed above. I discussed these findings with the patient. We discussed the incidental, she did develop these. We also discussed the acute kidney injury that was noted on her laboratory evaluation. We discussed this in depth as well as the concerns with her having received IV contrast. Patient will increase her hydration. She did receive 1 L while here. She will contact her primary tomorrow to schedule follow-up appointment in 2 days. Strict return precautions were discussed. Encourage stretching, heat, topical options for pain. I did discourage medications that could worsen her kidney dysfunction. All of her questions and concerns were addressed and she is in agreement this plan. HPI General Mode of arrival: ambulatory. Date/Time Provider Initiated Documentation: 10/23/20 19:36. Limitations to Documentation: no limitations. Information obtained by: patient and RN notes reviewed. History of Present Illness 60 year old F presents to the emergency department with the chief complaint of left chest wall and abdomen pain, described as severe, with intensity rated at 7. Quality is described as aching, and is localized to the chest and abdomen. Patient reports no radiation. Patient started experiencing this minute(s) and it has been constant. Immobilization improves symptom(s), Movement worsens symptoms . Patient notes no other symptoms.. Patient did receive the following treatments prior to arrival, none Related Data Home Medications Medication Instructions Recorded Confirmed Calcium/Mag Oxide/Zn 2 tab PO DAILY 02/27/13 10/23/20 albuterol sulfate 90 mcg/actuation 1 - 2 puff INHALATION Q6H PRN #1 09/28/19 10/23/20 aerosol inhaler inhaler escitalopram oxalate 20 mg tablet 20 mg PO HS #90 tab 10/28/19 10/23/20 hydrochlorothiazide 12.5 mg tablet 12.5 mg PO DAILY #90 tab-cap 10/28/19 10/23/20 anastrozole 1 mg tablet 1 mg PO DAILY 07/15/20 10/23/20 nystatin 1 applic TP BID PRN 10/23/20 10/23/20 Previous Rx's Medication Instructions Recorded albuterol sulfate 90 mcg/actuation 1 - 2 puff INHALATION Q6H PRN #1 09/28/19 aerosol inhaler inhaler escitalopram oxalate 20 mg tablet 20 mg PO HS #90 tab 10/28/19 hydrochlorothiazide 12.5 mg tablet 12.5 mg PO DAILY #90 tab-cap 10/28/19 Allergies Allergy/AdvReac Type Severity Reaction Status Date / Time Penicillins Allergy Severe Anaphylaxsi Unverified 10/23/20 19:55 s clindamycin AdvReac Severe N/V Unverified 10/23/20 19:55 codeine AdvReac Unknown Nausea Unverified 10/23/20 19:55 Sulfa (Sulfonamide AdvReac Unknown GI Unverified 10/23/20 19:55 Antibiotics) MOLDS/SMUTS Allergy Mild CONGESTION Uncoded 10/23/20 19:55 CAT/FELINE Allergy Unknown Nausea Uncoded 10/23/20 19:55 General ISAAK: 5 Review of Systems Constitutional Constitutional: Reports as per HPI, Denies chills, Denies fatigue, Denies fever(s), Denies headache(s) and Denies weakness Eyes Eyes: Reports as per HPI, Denies blurry vision, Denies change in vision and Denies loss of vision ENT Ears, Nose, Mouth, and Throat: Denies abnormal hearing and Denies headache(s) Cardiovascular Cardiovascular: Reports as per HPI, Denies chest pain and Denies dyspnea Respiratory Respiratory: Reports as per HPI, Denies cough, Denies pain on inspiration, Denies pain with cough and Denies dyspnea Gastrointestinal Gastrointestinal: Reports as per HPI, Denies abdominal pain, Denies nausea and Denies vomiting Genitourinary Genitourinary: Reports as per HPI and Denies urinary incontinence Musculoskeletal Musculoskeletal: Reports as per HPI Integumentary/Breasts Skin/Breast: Reports as per HPI and Denies rash Neurologic Neurologic: Reports as per HPI, Denies abnormal hearing, Denies abnormal movements, Denies abnormal speech, Denies headache(s), Denies lack of coordination, Denies localized weakness, Denies loss of vision, Denies seizure-like activity, Denies paresthesias and Denies weakness Endocrine Endocrine: Denies fatigue [facility] Medical History Abnormal cervical Papanicolaou smear 09/27/99 Anemia (09/06/17) secondary to heavy menses; s/p ablation 2003. Still persistent heavy menses Asthma Closed fracture of one rib 08/26/97 Depressive disorder (08/26/93) Diabetes Essential hypertension (11/03/13) Hx of malignant neoplasm of breast 2009 recurrance 2012 Hypokalemia 07/22/17 Lymph edema (07/15/15) Malignant neoplasm of female breast (06/23/10) recurrent 09/08 plan double mastectomy S/P surgery, radiation and chemo bone scan scheduled 09/09 - hip pain ? 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) Spinal stenosis of lumbar region (09/18/14) mri 09/09 - no metastasis seen multi level moderate to severe spinal stenosis and foraminal encroachment ; epidural and neurosurgical consult in the works Tension-type headache Surgical History Biopsy, Soft Tissue (02/12/17) right anterior chest wall mass at incision site, core biopsy = adenocarcinoma, invasive, ductal type, nuclear grade III Breast, Lumpectomy 2009- x3 to get clear margins followed by chemo and radiation Breast, Mastectomy right 2013- recurrent breast cancer- followed by chemotherapy Cervical Procedure (~1999) colposcopy section Colonoscopy - IV Sedation (04/26/13) DR. RODAS Endometrial Ablation (~2003) History of mastectomy Rt breast knee repair (~08/2011) Status post colposcopy 09/27/99 Tonsillectomy Tooth extraction wisdom tooth Family History (Updated 05/08/20 @ 18:07 by Mabel Beckham) Mother , 76 Depression Uterine cancer Breast cancer Lung cancer Father Diabetes Depression Lymphoma Cancer of neck Sister Asthma Maternal Grandfather , 88 Cancer of neck Paternal Grandfather No problems noted. Maternal Grandmother , 80 Essential hypertension Heart disease Paternal Grandmother No problems noted. Son Depression Alcohol abuse Paraplegia Daughter No problems noted. Daughter No problems noted. Social History Smoking/Tobacco Use Status: Never Second Hand Exposure: Yes Smoking risk assessment performed?: Yes Alcohol Intake: current Alcohol Intake frequency: holidays/special occasions only Alcohol type: beer and wine Drug use: Never Substance use type: former substance user Date of last use: as a teenager and marijuana Counseling given: No Counseling provided: none Caregiver/Support person: No Household members: children Housing: house Communication Needs: None Pets and animals: Yes Pets and animals: cat(s) Sexually active: No Do you think of yourself as: straight/heterosexual Current gender identity: female What is your relationship status?: How often do you talk on the phone with friends or family?: three or more times per week How often do you get together with friends or relatives?: once per week Do you belong to any clubs or organized social groups?: no Panel score (0-1 are the most socially isolated patients): 1 What type of physical activity do you participate in: walking and swimming Duration: 30-45 minutes/day Frequency: 3-4 times per week Zabrina/Cheondoism: No preference Special zabrina needs: No Seatbelt use: always Drive intox or ride w/intox moving van driver: No Do you feel safe at home: Yes Do you feel safe in your relationship?: Yes Exam Const General: cooperative, healthy appearing, comfortable, no acute distress, well developed and well groomed Nutritional Appearance: average body habitus and well nourished Orientation: alert, awake and oriented x3 HENMT Head: normal to inspection, no palpable skull fracture, normocephalic and atraumatic Ears: hearing grossly normal bilaterally, external ears normal and TM's normal bilaterally General nose exam: external nose normal Mouth: oral mucosae normal, lip normal and tongue normal Throat: posterior oropharynx normal Eyes General: appearance normal, both eyes and all related structures Visual Hollins: normal visual hollins by confrontation Alignment and Position: alignment normal Periorbital: periorbital findings normal Eyelids: eyelids normal Conjunctivae: conjunctivae normal Pupils: PERRL EOM: EOM intact bilaterally Neck Neck: normal visual inspection, full ROM, no lymphadenopathy, no meningeal signs, trachea midline and supple Chest Chest: normal inspection of the chest, normal palpation of entire chest wall, no crepitus and no localized rib tenderness Resp Effort & Inspection: normal respiratory effort, able to speak in complete sentences and no respiratory distress Auscultation: clear to auscultation bilaterally, no rales, no rhonchi and no wheezes Cardio Rate: regular rate Rhythm: regular rhythm Heart Sounds: S1 normal and S2 normal GI Inspection: normal to inspection, no abdominal wall ecchymosis, no edema and non-distended Palpation: soft, no hepatosplenomegaly, not firm, no guarding, no pulsatile masses, not rigid and nontender Auscultation: normal bowel sounds Back/Spine/Pelvis Back: no CVA tenderness Cervical Spine: normal cervical lordosis and cervical ROM normal Thoracic/Lumbar Spine: thoracic and lumbar spine normal to inspection, thoraco-lumbar ROM normal, No thoraco-lumbar ROM limited, No thoraco-lumbar spasm and No thoracic spinal tenderness Pelvis: no pain with anterior-posterior compression and no pain with lateral compression Skin General skin exam: no rashes or lesions noted Lesions: no lesions Rashes: no rashes Trauma: no lacerations or abrasions Wounds: no wounds Neuro General: patient alert, patient awake, patient oriented x3, gait normal, tone normal and moves all extremities Cranial Nerves: CN's II-XI intact bilaterally Cognition: normal cognition Speech: speech normal Gait: normal gait Motor: muscle tone normal throughout and strength 5/5 throughout Sensory Exam: no sensory deficits noted (no saddle paresthesias) Extrem General: normal to inspection, full ROM, capillary refill normal, no pedal edema and no calf tenderness Psych Appearance: grossly normal and well kempt Mental Status: mental status grossly normal Speech and Movement: speech and movement normal
[2020-10-23] MEDS: Acetaminophen 500 MG TAB 1000 MG PO (20:29)
[2020-10-23 20:30] LABS: Abs Immature Grans 0.04 10^3/uL (0.0-0.06); Absolute Eosinophil Count 0.19 10^3/uL (0.0-0.7); Absolute Lymphocyte Count 2.75 10^3/uL (1.2-3.4); Absolute Monocyte Count 0.65 10^3/uL (0.1-0.8); Basophils % 0.4; Eosinophils % 1.7; HCT 37.5 % (36.0-46.0); Immature Grans % 0.4; Lymphocytes % 24.2; MCH 25.9 pg (27.0-33.0); Monocytes % 5.7; Neutrophils % 67.6; Nucleated RBC 0 %; Platelet Count 323 10^3/uL (130-400); RBC 4.63 10^6/uL (3.93-5.22); RDW 15.5 % (11.7-14.6); RDW-SD 45.8 fL; WBC 11.38 10^3/uL (4.4-10.8)
[2020-10-23 20:31] LABS: Absolute Basophil Count 0.05 10^3/uL (0.0-0.2); Absolute Neutrophil Count 7.69 10^3/uL (1.2-6.7)
[2020-10-23 20:45] LABS: ALT 28 U/L (14-59); AST 23 U/L (15-37); Albumin 3.5 g/dL (3.4-5.0); Alkaline Phosphatase 121 U/L (46-116); Anion Gap 9.1 mmol/L (3-11); BUN 26 mg/dL (7-18); Bilirubin, Total 0.7 mg/dL (0.2-1.0); CO2 28.9 mmol/L (21.0-32.0); Calcium 9.2 mg/dL (8.5-10.1); Chloride 100 mmol/L (98-107); Estimated GFR 25.59 (mL/min/1.73m2); Glucose 108 mg/dL (74-106); PTT Activated 23.6 sec (21.0-27.5); Potassium 3.5 mmol/L (3.5-5.1); Prothrombin Time 10.1 sec (9.3-11.0); Sodium 138 mmol/L (136-145); Total Protein 7.7 g/dL (6.4-8.2)
[2020-10-23] MEDS: Lidocaine 5% Patch 1 PATCH TP (20:48)
--- NOTE | 2020-10-23 20:48 | DI.CT_ITS ---
EXAM: CT CHEST/ABD/PEL W CLINICAL HISTORY: left sided pain. TECHNIQUE: Imaging Protocol: Axial computed tomography images with coronal and sagittal reformatted images were created and reviewed CONTRAST MATERIAL: Intravenous: Omnipaque 350 Contrast volume:100 ml Oral: None COMPARISON: CT CHEST FOR PULMONARY EMBOLUS from 07/24/2017 FINDINGS: CHEST: LUNGS: The left lung is clear.. Scar like infiltrate in the right upper lobe is noted. This does no t have the appearance of a lung contusion. There are no pleural effusions and no pneumothorax. No s ignificant findings in the trachea and mainstem bronchi. MEDIASTINUM: There is no hilar nor mediastinal adenopathy. Visualized thyroid unremarkable.There is n o evidence of significant mediastinal hematoma. Moderate size hiatal hernia noted CARDIAC: Heart size is normal. There is no pericardial effusion.Caliber of the thoracic aorta is wit hin normal limits. OSSEOUS: There are healing fractures of the anterior aspect of the right 2nd and 3rd ribs.. ABDOMEN: There is no ascites. No evidence of mesenteric nor bowel wall hematoma. No significant subcutaneous bruising. LIVER: There are no focal hepatic lesions nor dilatation of intrahepatic ducts. No evidence of signi ficant liver trauma. GALLBLADDER/BILIARY: No obvious gallbladder pathology. CBD is not dilated. PANCREAS: No evidence of pancreatic mass nor dilatation of the pancreatic duct. SPLEEN: Spleen is not enlarged. There are no intrasplenic lesions. No evidence of splenic laceration or perisplenic fluid. Splenic and portal veins are patent. ADRENALS: There are no significant adrenal masses. KIDNEYS: No calculi nor hydronephrosis. No solid renal masses. No evidence of renal trauma. No incid ental cysts. ABDOMINAL AORTA: Abdominal aorta is intact with no evidence of significant trauma nor significant ath erosclerotic disease and no evidence of aneurysm in the aortoiliac segments. ABDOMINAL WALL/GI: No evidence of significant anterior abdominal wall hernia. No bowel obstruction. PELVIS: LYMPH NODES: There is no intrapelvic nor inguinal adenopathy. GI: No evidence of appendicitis.No evidence of sigmoid diverticulitis. URINARY BLADDER: No calculi nor masses evident REPRODUCTIVE: Uterus is surgically absent. There are no adnexal masses. No free fluid OSSEOUS: No significant osseous lesions. IMPRESSION: 1. No evidence of significant [id number] trauma. 2. Chronic appearing infiltrate in the right upper lobe stool versus scarring. The more prominent bi lateral lung infiltrates which were evident on the CT scan of June 2017 have resolved in both lung paulino. There are no pleural effusions. No pneumothorax. 3. There appear to be healing fractures of the right 2nd and 3rd ribs, anteriorly. 4. Moderate size hiatal hernia. Prior hysterectomy. No abnormal adnexal findings. No free fluid. RADIATION DOSE DELIVERED: 1,566mGy.cm Total DLP DATA REPOSITORY: All CT scans at this facility are submitted to the National Radiology Data Registry (NRDR) Dose Index Registry (DIR) with the [employer] (ACR). RADIATION OPTIMIZATION: All CT scans at this facility use at least one of these dose optimization te chniques: automated exposure control; mA and/or kV adjustment per patient size (includes targeted exa ms where dose is matched to clinical indication); or iterative reconstruction.
[2020-10-23] MEDS: Omnipaque 350 MG/ML 100 ML BTL IJ (20:49)
[2020-10-23] MEDS: Normal Saline Flush 10 ML SYR IVP (20:50)
[2020-10-23] MEDS: Normal Saline - Diluent 50 ML VIAL IV (20:50)
[2020-10-23] MEDS: Normal Saline 1,000 ML 1000 ML IV (20:55)
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
== END 2020-10-23 21:48 | disposition home or self-care (01) ==
PROVIDERS: Emergency Provider Physician Assistant; PCP Family Medicine
DX: N17.8 Other acute kidney failure (principal); R07.81 Pleurodynia; R10.12 Left upper quadrant pain; V00.228A Other sled accident, initial encounter; Y93.23 Activity, snow (alpine) (downhill) skiing, snowboarding, sledding, tobogganing and snow tubing; I10 Essential (primary) hypertension; E11.9 Type 2 diabetes mellitus without complications
CPT/HCPCS: 36415; 74177; 80053; 96360; 99285; 71260; 85025; 85610; 85730; J3490

== ENCOUNTER 2020-10-29 02:43 | Outpatient (CLI) | payer MEDICARE, BC, SELFPAY ==
[2020-10-29 12:57] LABS: ALT 44 U/L (14-59); AST 31 U/L (15-37); Albumin 3.8 g/dL (3.4-5.0); Alkaline Phosphatase 144 U/L (46-116); BUN 20 mg/dL (7-18); CREATININE 0.9 mg/dL (0.55-1.02); Calcium 10.1 mg/dL (8.5-10.1); Chloride 102 mmol/L (98-107); Glucose 117 mg/dL (74-106); Potassium 4.2 mmol/L (3.5-5.1); Sodium 138 mmol/L (136-145); Total Protein 7.3 g/dL (6.4-8.2)
== END 2020-10-29 02:44 | disposition home or self-care (01) ==
LOC: LOS 02:44
PROVIDERS: PCP Family Medicine; Visit Provider Family Medicine
DX: R79.89 Other specified abnormal findings of blood chemistry (principal); I10 Essential (primary) hypertension
CPT/HCPCS: 36415; 80053

== ENCOUNTER 2021-04-18 02:16 | Outpatient (CLI) | payer MEDICARE, BC, SELFPAY ==
[2021-04-18 12:43] LABS: Abs Immature Grans 0.03 10^3/uL (0.0-0.06); Absolute Basophil Count 0.04 10^3/uL (0.0-0.2); Absolute Eosinophil Count 0.12 10^3/uL (0.0-0.7); Absolute Lymphocyte Count 2.56 10^3/uL (1.2-3.4); Absolute Monocyte Count 0.45 10^3/uL (0.1-0.8); Absolute Neutrophil Count 5.07 10^3/uL (1.2-6.7); Basophils % 0.5; Eosinophils % 1.5; HCT 36.2 % (36.0-46.0); HGB 11.4 g/dL (11.2-15.7); Immature Grans % 0.4; MCH 25.8 pg (27.0-33.0); MCHC 31.5 % (32.0-36.0); MCV 81.9 fL (80-95); MPV 10.1 fL (8.0-11.0); Monocytes % 5.4; Neutrophils % 61.2; Nucleated RBC 0 %; Platelet Count 331 10^3/uL (130-400); RBC 4.42 10^6/uL (3.93-5.22); RDW 14.6 % (11.7-14.6); RDW-SD 43.9 fL; WBC 8.27 10^3/uL (4.4-10.8)
[2021-04-18 13:30] LABS: ALT 28 U/L (14-59); AST 24 U/L (15-37); Albumin 3.6 g/dL (3.4-5.0); Alkaline Phosphatase 136 U/L (46-116); Anion Gap 11.5 mmol/L (3-11); BUN 18 mg/dL (7-18); Bilirubin, Total 1.1 mg/dL (0.2-1.0); CO2 27.5 mmol/L (21.0-32.0); CREATININE 0.9 mg/dL (0.55-1.02); Calcium 9.7 mg/dL (8.5-10.1); Chloride 102 mmol/L (98-107); Ferritin 26 ng/mL (8-252); Glucose 110 mg/dL (74-106); Potassium 3.6 mmol/L (3.5-5.1); Sodium 141 mmol/L (136-145); TSH (W/Ref FT4) 1.93 uIU/mL (0.36-3.74)
[2021-04-18 14:03] LABS: Iron 39 ug/dL (50-170)
== END 2021-04-18 02:17 | disposition home or self-care (01) ==
PROVIDERS: PCP Family Medicine; Visit Provider Family Medicine
DX: R53.83 Other fatigue (principal); R79.89 Other specified abnormal findings of blood chemistry; R63.8 Other symptoms and signs concerning food and fluid intake; F32.9 Major depressive disorder, single episode, unspecified; J45.909 Unspecified asthma, uncomplicated
CPT/HCPCS: 36415; 80053; 82728; 83540; 84443; 85025; 93225

== ENCOUNTER 2021-04-18 07:40 | Outpatient (RCR) | payer MEDICARE, BC, SELFPAY ==
--- NOTE | 2021-04-18 10:30 | HOLTER_ITS ---
APPROVED REPORT Conclusion There is a 48-hour monitor ordered for indication of palpitations. Patient was in normal sinus rhythm for the majority of the recording with an average heart rate of 85 bpm. There were no episodes of ventricular tachycardia and 4 total PVCs. There was one episode of supraventricular tachycardia lasting 6 total beats. There were rare PACs. There were no episodes of atrial fibrillation, no pauses greater than 3 seconds and no evidence of hi gh degree heart block. There were 7 patient reported events associated with heart racing. 2 of these were associated with sinus tachycardia and the remaining 5 were associated with normal sinus rhythm.
== END 2021-04-26 23:59 | disposition home or self-care (01) ==
LOC: RT 07:40
PROVIDERS: PCP Family Medicine; Visit Provider Family Medicine
DX: R00.2 Palpitations (principal); I47.1 Supraventricular tachycardia; I49.3 Ventricular premature depolarization; I49.1 Atrial premature depolarization; R00.0 Tachycardia, unspecified
CPT/HCPCS: 93227; 93225; 93226

== ENCOUNTER 2021-05-28 01:49 | Outpatient (CLI) | payer MEDICARE, BC, SELFPAY ==
--- NOTE | 2021-05-28 07:15 | DI.CT_ITS ---
Exam(s) CT HEAD WO EXAM: CT HEAD WO CLINICAL HISTORY: headache,51.9. TECHNIQUE: Imaging Protocol: Axial computed tomography images with coronal and sagittal reformatted images were created and reviewed COMPARISON: No exams were available for comparison FINDINGS: Ventricles and Extra axial spaces: Normal in size and morphology for the patient's age. Hemorrhage: None. Cerebral parenchyma: Normal. Midline shift: None. Brainstem/Cerebellum: Normal. Calvarium: Normal. Visualized Paranasal sinuses/Mastoids: There is a mucous retention cyst or polyp in the left maxillar y sinus. The remaining visualized paranasal sinuses and mastoid air cells are clear. Soft Tissues: Unremarkable. IMPRESSION: No acute intracranial process. RADIATION DOSE DELIVERED: 760.35mGy.cm Total DLP DATA REPOSITORY: All CT scans at this facility are submitted to the National Radiology Data Registry (NRDR) Dose Index Registry (DIR) with the [employer] (ACR). RADIATION OPTIMIZATION: All CT scans at this facility use at least one of these dose optimization te chniques: automated exposure control; mA and/or kV adjustment per patient size (includes targeted exa ms where dose is matched to clinical indication); or iterative reconstruction.
== END 2021-05-28 02:09 ==
PROVIDERS: PCP Family Medicine; Visit Provider Nurse Practitioner Family
DX: R51.9 Headache, unspecified (principal)
CPT/HCPCS: 70450

== ENCOUNTER 2021-07-11 00:42 | Outpatient (CLI) | payer MEDICARE, BC, SELFPAY ==
--- NOTE | 2021-07-11 09:17 | DI.RAD_ITS ---
Exam(s) XR SHOULDER RT COMPLETE 2+V EXAM: XR SHOULDER RT COMPLETE 2+V CLINICAL HISTORY: r shoulder pain/rotator cuff tear,chest wall deformity,m95.4,m25.511. TECHNIQUE: 2D digital imaging was performed. COMPARISON: CR XR RIBS RT PA CHEST 3V from 08/30/2019 FINDINGS: BONES: No acute fracture is present. No bony destructive lesion is seen. Prominent spurring at the u ndersurface of the acromion. Spurring and inferior glenoid. JOINTS: No dislocation present. Ihma-fo-[id number] spurring at the AC joint. Glenohumeral joint space well maintained. SOFT TISSUE: Surgical clips axilla. No tendon or joint space calcifications. IMPRESSION: Prominent spurring at the undersurface of the acromion. No jtpy-[id number]-[id number] degenerative changes of the glenohumeral joint and AC joint. DATA REPOSITORY: RADIATION DOSE DELIVERED:
== END 2021-07-11 01:02 ==
PROVIDERS: PCP Family Medicine; Visit Provider Family Medicine
DX: M25.511 Pain in right shoulder (principal); M95.4 Acquired deformity of chest and rib; M75.81 Other shoulder lesions, right shoulder
CPT/HCPCS: 73030

== ENCOUNTER → 2021-08-12 10:11 | Outpatient (BNVA) | payer MEDICARE, BC, SELFPAY | PROVIDERS: PCP Family Medicine; Referring Provider Family Medicine; Visit Provider Student in an Organized Health Care Education/Training Program | DX: M75.41 Impingement syndrome of right shoulder (principal); X50.0XXA Overexertion from strenuous movement or load, initial encounter; E11.9 Type 2 diabetes mellitus without complications | CPT/HCPCS: 99203; 99214 ==

== ENCOUNTER 2021-08-19 01:25 | Outpatient (CLI) | payer MEDICARE, BC, SELFPAY ==
--- NOTE | 2021-08-19 06:30 | DI.MRI_ITS ---
Exam(s) MR UPPER JOINT RT WO CLINICAL HISTORY: R SHOULDER PAIN,ROTATOR CUFF IMPINGEMENT SYNDROME,M75.41,M75.100. TECHNIQUE: Multiplanar multisequence MRI was performed. COMPARISON: None FINDINGS: MR examination of the shoulder was performed according to the usual protocol. There is a moderate effusion of the glenohumeral joint. There is moderate fluid in the subacromial s ubdeltoid bursa. Bones and labrum: There is moderate hypertrophic change at the acromioclavicular joint. There is a l aterally downsloping acromion with narrowing of the acromial outlet period Glenoid labrum is effaced and there is an apparent superior and posterior labral tear. The humeral h ead is moderately subluxed superiorly.. Rotator cuff: The subscapularis muscle and tendon are intact proximally. There is abnormal signal a ssociated with the distal sub scapularis tendon probably representing some minor undersurface tearing on its humeral attachment. There is a full-thickness retracted tear of the supraspinatus tendon, re traction is estimated at 17 millimeters. No significant atrophy of muscle belly of the supraspinatus seen. Infraspinatus muscle and tendon appear grossly intact except for mild signal abnormality of the tendo n consistent with tendinosis. Teres minor is unremarkable. Rotator interval structures are unremarkable with no evidence of a tear. Biceps tendon and anchor: Biceps tendon shows markedly abnormal signal in the bicipital groove, there are a couple of 2-3 millimeter fluid collections associated with the biceps tendon at this level and these may represent tearing of the biceps tendon. Proximal tendon and anchor is poorly seen and letty ws markedly abnormal signal, fold thickness tear not excluded. IMPRESSION: Full-thickness supraspinatus tear with 1.6 cm retraction. Mild partial thickness tearing of subscapu nikki humeral attachment. Probable biceps tendon tear, partial-thickness versus full-thickness, with poor visualization of the proximal tendon and anchor period retracted tear not excluded. Posterior and superior labral tear, the tear may extend anteriorly as well, probable SL AP tear. Narrowed acromial outlet secondary to laterally downsloping acromion. DATA REPOSITORY:
== END 2021-08-19 01:45 ==
PROVIDERS: PCP Family Medicine; Visit Provider Student in an Organized Health Care Education/Training Program
DX: M75.101 Unspecified rotator cuff tear or rupture of right shoulder, not specified as traumatic (principal); M75.41 Impingement syndrome of right shoulder; S43.431A Superior glenoid labrum lesion of right shoulder, initial encounter; X58.XXXA Exposure to other specified factors, initial encounter
CPT/HCPCS: 73221

== ENCOUNTER → 2021-08-26 13:03 | Outpatient (BNVA) | payer MEDICARE, BC, SELFPAY | PROVIDERS: PCP Family Medicine; Referring Provider Family Medicine; Visit Provider Student in an Organized Health Care Education/Training Program | DX: S46.011D Strain of muscle(s) and tendon(s) of the rotator cuff of right shoulder, subsequent encounter (principal); S46.211D Strain of muscle, fascia and tendon of other parts of biceps, right arm, subsequent encounter; M75.51 Bursitis of right shoulder; X58.XXXD Exposure to other specified factors, subsequent encounter | CPT/HCPCS: 99214 ==

== ENCOUNTER 2021-10-01 03:30 | Outpatient (CLI) | payer MEDICARE, BC, SELFPAY ==
[2021-10-01 14:30] LABS: Source Nasal/Nares
[2021-10-01 18:42] LABS: COVID-19 PCR Negative (Negative)
== END 2021-10-01 03:31 | disposition home or self-care (01) ==
LOC: LBO 03:32
PROVIDERS: PCP Family Medicine; Visit Provider Student in an Organized Health Care Education/Training Program
DX: Z20.822 Contact with and (suspected) exposure to COVID-19 (principal); Z01.818 Encounter for other preprocedural examination
CPT/HCPCS: 87635

== ENCOUNTER 2021-10-03 05:58 | Day surgery (SDC) | payer MEDICARE, BC, SELFPAY ==
[2021-10-03] VITALS (10 sets, daily range): BP systolic 105–148; BP diastolic 52–89; PULSE 71–89; RESP 16–26; TEMP 36.2–36.7; O2SAT 93–100; BMI 51.8
--- NOTE | 2021-10-03 07:04 | W.ANESPRE ---
General Info Date of Service Date Performed: 10/03/21 Height: 4 ft 11 in Weight: 116.4 kg Body Mass Index (BMI): 51.8 Surgical Procedure: Operation Date: 10/03/21 07:40 Proposed Procedures Side Surgeon p Shoulder Rotator Cuff Arthroscopic,extensive debridement,biceps tenotomy/tenodesis,subcromial decompression Right Antonino Hubbard MD Meds Allergies and Home Medications Allergies Allergy/AdvReac Type Severity Reaction Status Date / Time Penicillins Allergy Severe Anaphylaxsi Verified 10/03/21 06:28 s clindamycin AdvReac Severe N/V Verified 10/03/21 06:28 codeine AdvReac Unknown Nausea Verified 10/03/21 06:28 Sulfa (Sulfonamide AdvReac Unknown GI Verified 10/03/21 06:28 Antibiotics) MOLDS/SMUTS Allergy Mild CONGESTION Uncoded 10/03/21 06:28 CAT/FELINE Allergy Unknown Nausea Uncoded 10/03/21 06:28 Home Medication Medication Instructions Recorded Calcium/Mag Oxide/Zn 2 tab PO DAILY 02/27/13 anastrozole 1 mg tablet 1 mg PO DAILY 07/15/20 escitalopram oxalate 20 mg tablet 20 mg PO HS #90 tab 10/24/20 hydrochlorothiazide 12.5 mg tablet 12.5 mg PO DAILY #90 tab-cap 10/24/20 losartan 25 mg tablet 25 mg PO DAILY #90 tab 11/19/20 albuterol sulfate 90 mcg/actuation 1 - 2 puff INHALATION Q6H PRN #1 05/06/21 aerosol inhaler inhaler ferrous sulfate 325 mg (65 mg 325 mg PO DAILY 05/06/21 iron) tablet,delayed release semaglutide 3 mg tablet 3 mg PO DAILY 08/12/21 Current Visit Medications: Current Medications Generic Name Dose Route Start Last Admin Trade Name Freq PRN Reason Stop Dose Admin Ringer's Solution 1,000 mls @ 100 mls/hr 10/03/21 06:00 IV 11/01/21 23:59 INFUSION JAHAIRA Cefazolin Sodium 3,000 mg/ 100 mls @ 200 mls/hr 10/03/21 06:00 Sodium Chloride IVPB 10/03/21 23:59 PREOP JAHAIRA IV Miscellaneous Supplies 1 each 10/03/21 06:00 Iv Access IV 11/01/21 23:59 DIRECTED JAHAIRA Sodium Chloride 0 ml 10/03/21 06:00 Normal Saline Flush 10 Ml Syr IV 11/01/21 23:59 PRN PRN Sodium Chloride 0 ml 10/03/21 06:00 Normal Saline 10 Ml Vial IJ 11/01/21 23:59 DIRECTED PRN Sterile Water 0 ml 10/03/21 06:00 Water,Injection,Sterile 10 Ml Vial IJ 11/01/21 23:59 DIRECTED PRN PFSH Active Problems Active Problems: Problem Status Onset Code Bursitis of right shoulder M75.51 Traumatic rupture of right proximal biceps tendon ~06/2021 S46.211A Traumatic tear of right rotator cuff ~06/2021 S46.011A Shingles B02.9 Iron (Fe) deficiency anemia D50.9 Chest wall deformity M95.4 Palpitation R00.2 Balance disorder R26.89 Elevated serum creatinine R79.89 Fatigue R53.83 Skin lesion L98.9 Rib pain on right side R07.81 Increased body mass index R63.8 Stress at home 06/09/16 F43.9 Diabetes mellitus E11.9 Abnormal cervical Papanicolaou smear R87.619 Spinal stenosis of lumbar region 09/18/14 M48.061 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 Peripheral neuropathy 05/14/14 G62.9 Migraine G43.909 Malignant neoplasm of female breast 06/23/10 C50.919 Lymph edema 07/15/15 I89.0 Essential hypertension 11/03/13 I10 Depressive disorder 08/26/93 F32.9 Asthma J45.909 Palliative care patient Z51.5 Medical History Active Problem List Traumatic rupture of right proximal biceps tendon (Acute ~06/2021) Traumatic tear of right rotator cuff (Acute ~06/2021) Shingles (Acute) Iron (Fe) deficiency anemia (Acute) Chest wall deformity (Acute) Palpitation (Acute) Balance disorder (Acute) Elevated serum creatinine (Acute) Fatigue (Acute) Skin lesion (Acute) Rib pain on right side (Acute) Increased body mass index (Chronic) Stress at home (Chronic 06/09/16) Diabetes mellitus (Chronic) Abnormal cervical Papanicolaou smear (Acute) Spinal stenosis of lumbar region (Chronic 09/18/14) 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) Peripheral neuropathy (Chronic 05/14/14) Migraine (Chronic) Malignant neoplasm of female breast (Chronic 06/23/10) 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) Essential hypertension (Chronic 11/03/13) Depressive disorder (Chronic 08/26/93) Asthma (Chronic) Palliative care patient (Chronic) Medical History Abnormal cervical Papanicolaou smear 09/27/99 Anemia (09/06/17) secondary to heavy menses; s/p ablation 2003. Still persistent heavy menses Closed fracture of one rib 08/26/97 Diabetes Hx of malignant neoplasm of breast 2009 recurrance 2012 Hypokalemia 07/22/17 Obesity, Class III, BMI 40-49.9 (morbid obesity) Pharyngitis Polyp of colon (08/26/99) Tension-type headache Surgical History Surgical History Biopsy, Soft Tissue (02/12/17) right anterior chest wall mass at incision site, core biopsy = adenocarcinoma, invasive, ductal type, nuclear grade III Breast, Lumpectomy 2009- x3 to get clear margins followed by chemo and radiation Breast, Mastectomy right 2013- recurrent breast cancer- followed by chemotherapy Cervical Procedure (~1999) colposcopy section Colonoscopy - IV Sedation (04/26/13) DR. RODAS Endometrial Ablation (~2003) History of mastectomy Rt breast knee repair (~08/2011) Status post colposcopy 09/27/99 Tonsillectomy Tooth extraction wisdom tooth Tobacco Smoking/Tobacco Use Status: Never Passive smoking exposure: Yes Second hand exposure: Yes Alcohol Alcohol Intake: former Substance Use Substance use: Never Substance use type: does not use Counseling given: No Counseling provided: none Vital Signs and Lab Results Vital Signs Most Recent Vital Signs in EMR: Most Recent Vital Signs Temp Pulse Resp BP Pulse Ox 36.4 C L 83 16 118/80 100 10/03/21 06:17 10/03/21 06:17 10/03/21 06:17 10/03/21 06:17 10/03/21 06:17 Point of Care Results Point of Care Results: Finger Stick Blood Glucose 137 10/03/21 06:34 Lab Results Blood Type / Crossmatch: No Data to Display Complete Blood Count: No Data to Display Complete Metabolic Panel: No Data to Display Liver Function Panel: No Data to Display Coagulation Panel: No Data to Display Cardiac Panel: No Data to Display Arterial Blood Gas: No Data to Display Venous Blood Gas: No Data to Display Pancreas Panel: No Data to Display Thyroid Panel: No Data to Display Infectious Disease: Coronavirus (COVID-19)(PCR) Negative (Negative) 10/01/21 11:05 10/01/21 Coronavirus 2019 Source Nasal/Nares 10/01/21 11:05 10/01/21 Blood Cultures: No Data to Display Toxicology Panel: No Data to Display Imaging and Studies Imaging and Studies Study information below may be from another EMR and interpreted by another provider. Please see original notes in EMR for more complete details. Stress Test Summary: Date of Exam: 10/21/20Sex: F Admission Date: 10/21/20 : 1960 Age: 60 Exam: Exercise Treadmill Indications: Fatigue, chest pain. MPI Conclusion The ejection fraction was 65% with stress. There were no wall motion abnormalities. There was no evidence of ischemia on the imaging portion exam. This represents a normal SPECT stress test. Anesthesia Assessment and Plan Anesthesia History Personal History: PONV and Delayed Emergence Family History: No Family History of Anesthesia Complications Exercise Tolerance Exercise Tolerance: Metabolic Equivalents>4 Pertinent Negatives Pertinent Negatives: No Symptoms of GERD and No Major Cardiovascular Symptoms or Complaints Cardiac & Pulmonary Exam Cardiac Exam: Normal S1/S2 Heart Sounds Pulmonary Exam: Clear Bilateral Breath Sounds Implantable Cardiac Device Does patient have a Pacemaker or an ICD?: No Airway Exam Known Difficult Airway: No Mallampati Class: 2 Mouth Opening: Normal (> 3cm) Thyromental Distance: Greater than 3 cm Neck Range of Motion: Full ROM Neck Circumference: Normal Teeth Condition: Normal Dentition ASA Classification ASA Score: ASA 3 Emergency Case?: No NPO Status NPO Status: NPO Clears >2 hours, Solids >8 hours Anesthesia Plan Resuscitation Status: Full Code Anesthesia Technique: General Anesthesia Airway Planned: Endotracheal Tube Pain Management: Surgeon and patient request nerve block Monitors Used: Standard Monitors
[2021-10-03] MEDS: Lactated Ringers 1,000 ML 100 ML IV (07:15)
[2021-10-03] MEDS: ceFAZolin 3,000 MG in Normal Saline 100 ML 200 MG IVPB (07:37)
--- NOTE | 2021-10-03 08:40 | W.ANESNERVE ---
Nerve Block Single Injection Procedure Date and Time Date Performed: 10/03/21 Procedure Start: 07:17 Location Where Procedure Performed Procedure Location: Day Surgery Unit Reason Performed: Postoperative Analgesia Requesting Provider: Antonino Hubbard Timeout Performed Timeout Performed: Yes Monitoring Used ECG, Blood Pressure, SpO2 and See EMR for corresponding vital signs Sterility Sterility: Hand Hygiene, Surgical Cap, Surgical Mask, Sterile Gloves and Chlorhexidine Sedation Given During Procedure Sedation Given (Indicate Dose Given): Versed IV Dose:: 2mg Patient Mental Status Patient Mental Status: Awake Nerve Block 1st Nerve Block: Laterality: Right Block Type: Interscalene Needle / Catheter Used: 100mm SonoPlex II Local Anesthetic Bolus (Indicate Dose Given): Lidocaine used for local infiltration of skin, Injected in 3-5ml increments after negative blood aspiration, Bupivacaine 0.5% Dose:: 10ml and Exparel Dose:: 10 ml Additives (Indicate Dose Given): None Ultrasound: Sterile probe cover and gel used Ultrasound Image Saved?: Yes Nerve Stimulator: Not Used Paresthesia: None Procedure Tolerated: No Complications and Patient tolerated well Procedure Outcome: Successful Procedure Comment: Initial injection with reasonably good view, 5-10 ml given, then noted air injection with obscuration of picture. Spent some time with same puncture site to identify another reasonable spot and remainder of solution injected. Performed By: Arvin Hatch
[2021-10-03] MEDS: EPINEPHrine 30 MG/30 ML VIAL (10:11)
--- NOTE | 2021-10-03 12:59 | W.ANESPOSTOP ---
Postoperative Evaluation Date, Time and Location Date Performed: 10/03/21 Time Performed: 12:59 Patient Location: Day Surgery Unit Vital Signs Most Recent Imported Vital Signs: Most Recent Vital Signs Temp Pulse Resp BP Pulse Ox 36.4 C L 78 24 110/56 L 95 10/03/21 12:10 10/03/21 12:10 10/03/21 12:10 10/03/21 12:10 10/03/21 12:10 Pain Score Most Recent Pain Score: Most Recent Pain Score Pain Level 0 10/03/21 12:10 Assessment Mental Status: Awake (Alert & Oriented to Patient Baseline) Airway and Respiratory Function: Patent airway with normal (patient baseline) respiratory exam Cardiovascular Function: Hemodynamically Stable Hydration Status: Adequately Hydrated Nausea & Vomiting: No Nausea or Vomiting Pain: Pt. Denies Any Pain Peripheral Nerve Block: Patient did not receive a nerve block
--- NOTE | 2021-10-03 13:32 | W.PM.DSUDISC ---
Discharge Plan Disposition Patient Disposition: HOME Condition: Stable Discharge Details Reason For Visit: Right shoulder surgery Attending Provider: Antonino Hubbard Primary Care Provider: Smita Quintero Home Meds and New Rx's Prescriptions: New naproxen 250 mg tablet 250 - 500 mg PO BID PRNQty: 40 RF: 0 aspirin 81 mg tablet,delayed release (DR/EC) 81 mg PO DAILY 14 Days Qty: 14 RF: 0 oxycodone 5 mg tablet 5 - 10 mg PO Q4H MDD 30 mg PRN (Reason: moderate to severe pain) Qty: 18 RF: 0 Continued losartan 25 mg tablet 25 mg PO DAILY Qty: 90 RF: 5 anastrozole 1 mg tablet 1 mg PO DAILY RF: 0 ferrous sulfate 325 mg (65 mg iron) tablet,delayed release (DR/EC) 325 mg PO DAILY RF: 0 albuterol sulfate [ProAir HFA] 90 mcg/actuation HFA aerosol inhaler 1 - 2 puff Inhalation Q6H PRN Qty: 1 RF: 12 Rybelsus 3 mg tablet 3 mg PO DAILY RF: 0 CALCIUM/MAG OXIDE/ZN 2 tab PO DAILY RF: 0 escitalopram oxalate 20 mg tablet 20 mg PO HS Qty: 90 RF: 5 hydrochlorothiazide 12.5 mg tablet 12.5 mg PO DAILY Qty: 90 RF: 12 Discharge Instructions Additional Instructions: Surgery: Right shoulder arthroscopy with rotator cuff repair, biceps tenodesis, extensive debridement, and subacromial decompression. Activity: For 6 weeks, you should keep your arm at your side in a neutral position at all times except for physical therapy. Do not try to lift or raise your arm using your own muscles. You should use the sling whenever you are out of the house. You may have to adjust the abduction pillow or remove it for comfort. At home it is best to remove the sling and rest the arm on a pillow at your side or support the operative side with your other hand. You may allow the arm to dangle at your side. A physical therapy prescription will be sent electronically to begin in about 3 weeks. CONSERVATIVE protocol. Gentle elevation on pillows as well as Wyatt wrap compression or lymphedema sleeve will probably be important to control swelling. Prescriptions: Aspirin 81 mg take 1 daily to prevent a blood clot for 2 weeks Naproxen 250 mg take 1-2 every 12 hours with a meal as needed for moderate pain Oxycodone 5 mg take 1-2 every 4-6 hours as needed for severe pain You may use [id number] Tylenol (acetaminophen) as needed for mild pain. These pain medications may be taken all at once or in different combinations as needed. Also, recommend Colace (docusate) as a stool softener as surgery and pain medicine cause constipation. Dressings: Remove shoulder bandage after 3 days. Leave the sticky Steri-Strips in place until they fall off or remove them after you shower. Cover the incisions with Band-Aids or leave them open to air. You may shower after 5 days. Follow-up: 10-[address] Hubbard You may take off the leg compression stockings this evening at home. You may also leave them on a few days longer if you have a history of leg swelling or edema. Let us know right away if you develop any redness, drainage, fevers, chest pain, or trouble breathing. Do not drink alcohol or drive for at least 24 hours after anesthesia. Please call the office during business hours with any questions or concerns. Referrals: Antonino Hubbard MD [ [facility]] - Discharge Orders Discharge Orders: Discharge Order (Routine); Ordered 10/03/21 Ordered By: Antonino Hubbard DS: Diagnosis Discharge Diagnosis (1) Bursitis of right shoulder: Status: Acute (2) Traumatic rupture of right proximal biceps tendon: Status: Acute (3) Traumatic tear of right rotator cuff: Status: Acute
--- NOTE | 2021-10-03 16:03 | DSU.FORM ---
Patient called to report grand-daughter had been sent home from school with + covid, and wanted to know what to do to keep her other grand-daughter from getting it. Patient advised to call her grand-daughter's PCP. Patient advised to wear a mask and have GD wear a mask when in contact.
--- NOTE | 2021-10-03 16:24 | W.PM.OP ---
Date of service: 10/03/21 Time of Service: 07:30 Operative Note Operative Note DATE OF PROCEDURE: 10/03/21 PRE-OP DIAGNOSIS: Right: 1. Rotator cuff tear 2. Proximal biceps rupture 3. Bursitis POST-OP DIAGNOSIS: same PROCEDURE: Right: 1. Rotator cuff repair, CPT# 12495. This involved repair of the supraspinatus using anchors and sutures to reattach the rotator cuff back to the footprint of the greater tuberosity. 2. Arthroscopic biceps tenodesis, CPT# 82734. This involved arthroscopically suturing and reattaching the long head of the biceps tendon to the proximal humerus at the superior margin of the bicipital groove with a screw at the correct tension. 2. Extensive debridement, CPT# 59765. This involved using arthroscopic hand instruments, power instruments, and radiofrequency instruments to release the long head of the biceps tendon and debride areas of labral tearing, synovitis, and chondromalacia about the biceps groove within the glenohumeral joint anteriorly, superiorly and posteriorly. 3. Subacromial decompression, CPT# 11959. This involved using arthroscopic power instruments and a radiofrequency wand to complete a bursectomy. The quality control assistant was medically required in order to help assist in techniques above, which require positioning the arm, holding the arthroscope, and manipulating multiple instruments and sutures at the same time. This cannot be done without the help of an experienced quality control assistant. SURGEON: Antonino Hbubard WARP PICKER: Arash Love ANESTHESIA TYPE: General LMA/ETT and Primary Nerve Block Refer to Anesthesia Record ESTIMATED BLOOD LOSS: 15 PATHOLOGY: none sent COMPLICATIONS: None Patient was transported to: PACU Patient's condition: stable Implants: Arthrex: 4.75mm knotless SwiveLocks x 4 Indications: The patient was diagnosed with the above conditions and appropriately indicated for surgical intervention. Please see complete medical record for details. Findings: Exam under anesthesia: Full range of motion, no instability Glenohumeral joint: Profound synovitis anteriorly and superiorly. Extensive labral fraying tearing anteriorly superiorly. Moderate chondromalacia about chronic appearing supraspinatus rotator cuff tear greater tuberosity and bicipital groove. Medially displaced and partially ruptured long head biceps tendon about 50% with largely intact subscapularis. Obvious full-thickness superior rotator cuff tear with significant central retraction. Subacromial space: Significant bursitis. Large U-shaped retracted supraspinatus infraspinatus rotator cuff tear with poor tissue quality and limited excursion centrally. Procedure Description: In the operating room, general anesthesia was induced. Bilateral shoulders were examined. The patient was positioned in the beachchair position. All bony prominences were well-padded. Preoperative antibiotics were administered. The shoulder was prepped and draped in the usual sterile fashion. The correct patient, procedure, and side of the procedure were all verified prior to incision. Starting through the posterior portal a standard complete diagnostic arthroscopy was performed of the glenohumeral joint including inspection of the long head of the biceps, anterior and superior labrum, subscapularis tendon, supraspinatus and infraspinatus tendons, and axillary recess. The glenoid and humeral head cartilage as well as the posterior labrum were inspected from an anterior viewing portal. Significant findings and interventions noted above. A rigid cannula was inserted anteriorly. A passport cannula was inserteted anterior superior lateral. An all-arthroscopic suprapectoral biceps tenodesis was performed through an anterior portal using a Loop N Tack method with a SutureTape FiberLink cinched around and through the tendon. The biceps was tenotomized from the labrum and withdrawn out anteriorly for later repair with the medial row anterior supraspinatus repair anchor. Starting through the posterior portal, the arthroscope was directed into the subacromial space. A lateral 50 yard line lateral portal was created and Niesha inserted. A combination of power instruments and a radiofrequency ablator were used to debride bursitis anteriorly, posteriorly, and laterally as well as expose the acromion. The coracoacromial ligament was preserved. The bursectomy was completed viewing laterally and working from posteriorly and the rotator cuff was thoroughly inspected with findings noted above. Passport cannulas inserted at the posterior superior lateral position. The greater tuberosity was significantly devoid of the superior rotator cuff supraspinatus and infraspinatus. The greater tuberosity was debrided of residual tissue and fibrinous material to optimize potential for bone tendon healing. There is very limited excursion of the large U-shaped rotator cuff tear especially centrally. There was poor tissue quality at the margins. Significant time and effort was spent with various liberator's and rotator cuff tissue graspers to mobilize the tendon, which was somewhat achieved anteriorly and posteriorly but to a limited extent centrally. The central tissue could be brought over the medial margin of the greater tuberosity without undue tension so decision was made to proceed with repair over reconstruction. Anteriorly the tissue provided moderate coverage and posteriorly the tissue could be brought anteriorly achieving reasonable coverage of the infraspinatus as well. The punch was used to place knotless medial row anchors anteriorly and posteriorly at the margins of the tear. The anterior medial row anchor contained the repair suture from the biceps tenodesis which was secured at the appropriate tension. The tear was mobilized over the suture anchors anteriorly and posteriorly and each knotless repair anchor was placed in a horizontal mattress fashion using a self retrieving suture passer and securing these margins. The fiber tapes were placed more medially but again taking care to incorporate anterior and posterior tissue using the self retrieving suture passer. There is still a void of central tissue with limited excursion. The self retrieving suture passer was then used to place 3 FiberLink's in cinch fashion to secure this tissue. The posterior lateral anchor was then placed incorporating these 3 links and a FiberTape from the anterior and posterior middle row anchors however the bone quality was poor and the suture anchor removed and instead replaced with a 5.5 mm anchor which was deployed successfully with these repair sutures. The anterior lateral anchor was then placed containing the last tapes from the medial row and the repair mechanism used to add fixation to the anterior central rotator cuff tissue. The repair was inspected and had good tissue coverage anteriorly and posteriorly as well as centrally over about 50% of the greater tuberosity although there was no compression of the tendon to bone at this area. The tendon was well secured through range of motion and no additional fixation was attempted or done even tenuous bone and tendon quality. The shoulder was drained of arthroscopic fluid. All portal sites were copiously irrigated. These incisions were closed using 3-0 Monocryl in a buried fashion and then covered with Mastisol, Steri-Strips, Xeroform, dry gauze, and ABDs. The dressings were covered and secured with Medipore tape. The operative extremity was placed into a sling for immobilization. The patient awoke from anesthesia without complication and was transferred to the recovery room in a stable condition.
== END 2021-10-03 14:37 | disposition home or self-care (01) ==
PROVIDERS: PCP Family Medicine; Visit Provider Student in an Organized Health Care Education/Training Program
PROC: (CPT 29827; principal; 2021-10-03 07:30)
DX: M75.51 Bursitis of right shoulder (principal); E11.42 Type 2 diabetes mellitus with diabetic polyneuropathy; I10 Essential (primary) hypertension; J45.909 Unspecified asthma, uncomplicated; M75.101 Unspecified rotator cuff tear or rupture of right shoulder, not specified as traumatic; S46.111A Strain of muscle, fascia and tendon of long head of biceps, right arm, initial encounter; X58.XXXA Exposure to other specified factors, initial encounter
CPT/HCPCS: 29827; 29828; 29826; 29823; 76942; J0131; J0360; J0690; J1100; J1885; J2250; J2370; J2405; J2704

== ENCOUNTER → 2021-10-15 13:19 | Outpatient (BNVA) | payer MEDICARE, BC, SELFPAY | PROVIDERS: PCP Family Medicine; Referring Provider Family Medicine; Visit Provider Student in an Organized Health Care Education/Training Program | DX: Z47.89 Encounter for other orthopedic aftercare (principal) ==

== ENCOUNTER 2021-12-08 02:30 | Outpatient (CLI) | payer MEDICARE, BC, SELFPAY ==
[2021-12-08 15:33] LABS: COMMENT (LAB VIEW ONLY) 136.32 mg/dL; Microalb ug/mg Crea 5.7 ug/mg Cr
[2021-12-08 15:34] LABS: Iron 78 ug/dL (50-170); Total Iron Binding Capacity 415 ug/dL (250-450); Transferrin Sat 19 % (15-50)
== END 2021-12-08 02:31 | disposition home or self-care (01) ==
LOC: LBO 02:30
PROVIDERS: PCP Family Medicine; Visit Provider Family Medicine
DX: D50.9 Iron deficiency anemia, unspecified (principal); E11.9 Type 2 diabetes mellitus without complications
CPT/HCPCS: 36415; 82043; 82570; 83540; 83550

== ENCOUNTER → 2021-12-10 13:20 | Outpatient (BNVA) | payer MEDICARE, BC, SELFPAY | PROVIDERS: PCP Family Medicine; Referring Provider Family Medicine; Visit Provider Student in an Organized Health Care Education/Training Program | DX: M75.51 Bursitis of right shoulder (principal); S46.211A Strain of muscle, fascia and tendon of other parts of biceps, right arm, initial encounter; S46.011A Strain of muscle(s) and tendon(s) of the rotator cuff of right shoulder, initial encounter; Z98.890 Other specified postprocedural states; X58.XXXA Exposure to other specified factors, initial encounter ==

== ENCOUNTER → 2022-01-28 09:39 | Outpatient (BNVA) | payer MEDICARE, BC, SELFPAY | PROVIDERS: PCP Family Medicine; Referring Provider Family Medicine; Visit Provider Student in an Organized Health Care Education/Training Program | DX: M75.51 Bursitis of right shoulder (principal); S46.011A Strain of muscle(s) and tendon(s) of the rotator cuff of right shoulder, initial encounter; S46.211A Strain of muscle, fascia and tendon of other parts of biceps, right arm, initial encounter; X58.XXXA Exposure to other specified factors, initial encounter | CPT/HCPCS: 99213 ==

== ENCOUNTER 2022-02-02 22:13 | Outpatient (REF) | payer MEDICARE, BC, SELFPAY ==
[2022-02-04 11:50] LABS: COVID-19 RT-PCR UVMMC Result Negative (Negative)
== END 2022-02-02 22:14 | disposition home or self-care (01) ==
LOC: LBN 22:13
PROVIDERS: PCP Family Medicine; Visit Provider Family Medicine
DX: Z20.822 Contact with and (suspected) exposure to COVID-19 (principal)
CPT/HCPCS: U0003; U0005

== ENCOUNTER 2022-09-17 08:49 | Outpatient (CLI) | payer MEDICARE, BC, SELFPAY ==
[2022-09-17 12:32] LABS: HCT 39.8 % (36.0-46.0); HGB 12.8 g/dL (11.2-15.7); MCH 28.3 pg (27.0-33.0); MCHC 32.2 % (32.0-36.0); MCV 88 fL (80-95); Platelet Count 318 10^3/uL (130-400); RBC 4.53 10^6/uL (3.93-5.22); RDW 13.5 % (11.7-14.6); RDW-SD 43.9 fL; WBC 8.17 10^3/uL (4.4-10.8)
[2022-09-17 12:53] LABS: ALT 28 U/L (14-59); AST 31 U/L (15-37); Albumin 3.6 g/dL (3.4-5.0); Alkaline Phosphatase 125 U/L (46-116); Anion Gap 6.2 mmol/L (3-11); BUN 18 mg/dL (7-18); Bilirubin, Total 1.1 mg/dL (0.2-1.0); CO2 30.8 mmol/L (21.0-32.0); CREATININE 0.9 mg/dL (0.55-1.02); Calcium 9.6 mg/dL (8.5-10.1); Chloride 105 mmol/L (98-107); Estimated GFR 73.19 (mL/min/1.73m2); Ferritin 66 ng/mL (8-252); Glucose 115 mg/dL (74-106); Potassium 4.1 mmol/L (3.5-5.1); Sodium 142 mmol/L (136-145); Total Protein 7.8 g/dL (6.4-8.2)
[2022-09-17 12:54] LABS: Iron 104 ug/dL (50-170)
[2022-09-17 13:11] LABS: Hemoglobin A1C 6.2 % (<5.7)
== END 2022-09-17 08:50 | disposition home or self-care (01) ==
LOC: LOS 08:49
PROVIDERS: PCP Family Medicine; Visit Provider Family Medicine
DX: D50.9 Iron deficiency anemia, unspecified (principal); R29.6 Repeated falls; R63.8 Other symptoms and signs concerning food and fluid intake; E11.9 Type 2 diabetes mellitus without complications; R26.89 Other abnormalities of gait and mobility; J45.909 Unspecified asthma, uncomplicated; F32.9 Major depressive disorder, single episode, unspecified
CPT/HCPCS: 36415; 80053; 85027; 82728; 83036; 83540; 84443

== ENCOUNTER 2022-12-25 01:13 | Outpatient (CLI) | payer MEDICARE, BC, SELFPAY ==
--- NOTE | 2022-12-25 09:21 | DI.RAD_ITS ---
Exam(s) XR KNEE LT 3V AP,LAT,BLAISE EXAM: XR KNEE LT 3V AP,LAT,BLAISE CLINICAL HISTORY: left knee pain,[id number]. TECHNIQUE: 2D digital imaging was performed. Three views. COMPARISON: None FINDINGS: BONES: No acute fracture is present. No bony destructive lesion is seen. JOINTS: Moderate to severe narrowing of the medial femoral tibial joint space. Tearing of the para p atellofemoral joint. Periarticular spurring throughout, greatest at the patellofemoral joint. A few loose bodies noted. No joint effusion is seen. SOFT TISSUE: Normal. IMPRESSION: Degenerative changes and loose bodies peer DATA REPOSITORY: RADIATION DOSE DELIVERED:
== END 2022-12-25 01:33 ==
LOC: DI 01:14
PROVIDERS: PCP Family Medicine; Visit Provider Family Medicine
DX: M25.562 Pain in left knee (principal); M25.862 Other specified joint disorders, left knee; M23.42 Loose body in knee, left knee
CPT/HCPCS: 73562

== ENCOUNTER 2023-01-22 09:58 | Outpatient (CLI) | payer MEDICARE, BC, SELFPAY ==
--- NOTE | 2023-01-22 10:08 | DI.RAD_ITS ---
Exam(s) XR KNEE RT 3V AP,LAT,BLAISE EXAM: XR KNEE RT 3V AP,LAT,BLAISE CLINICAL HISTORY: R knee pain. TECHNIQUE: 2D digital imaging was performed. Three views. COMPARISON: CR XR KNEE LT 3V AP,LAT,BLAISE from 12/25/2022 FINDINGS: BONES: No acute fracture is present. No bony destructive lesion is seen. JOINTS: There is severe narrowing of the medial femoral tibial joint space, with a [id number] appea tristen. There is prominent periarticular spurring throughout. And there is severe narrowing of the p atellofemoral joint which shows prominent spurring superiorly. No joint effusion is seen. SOFT TISSUE: Normal. IMPRESSION: Severe degenerative changes of the medial femoral tibial joint and patellofemoral joint. DATA REPOSITORY: RADIATION DOSE DELIVERED:
== END 2023-01-22 09:59 | disposition home or self-care (01) ==
LOC: DIORS 09:58
PROVIDERS: PCP Family Medicine; Referring Provider Family Medicine; Visit Provider Physician Assistant
DX: M17.11 Unilateral primary osteoarthritis, right knee; M17.12 Unilateral primary osteoarthritis, left knee
CPT/HCPCS: 20610; 73562; J1040

== ENCOUNTER 2023-02-08 08:24 | Emergency (ER) | payer MEDICARE, BC, SELFPAY ==
[2023-02-08 08:36] VITALS: BP 125/99; PULSE 81; RESP 15; TEMP 37.1; O2SAT 96
--- NOTE | 2023-02-08 08:45 | DI.RAD_ITS ---
Exam(s) XR FINGER RT INDEX EXAM: XR FINGER RT INDEX CLINICAL HISTORY: concern for retained splinter DIP volar aspect. TECHNIQUE: 2D digital imaging was performed. Three views. COMPARISON: CR XR KNEE RT 3V AP,LAT,BLAISE from 01/22/2023 FINDINGS: BONES: No acute fracture is present. No bony destructive lesion is seen. JOINTS: No dislocation present. Mild degenerative changes. SOFT TISSUE: Normal. No visible foreign body. No abnormal gas collection. IMPRESSION: No evidence of foreign body. DATA REPOSITORY: RADIATION DOSE DELIVERED:
--- NOTE | 2023-02-08 08:56 | ED.GENADUL_ITS ---
Discharge Plan Disposition Patient Disposition: Home Condition: Stable Discharge Details Clinical Impression: Infected finger, Foreign body of finger Primary Care Provider: Smita Quintero ED Provider: Daylin Batista Home Meds and New Rx's Prescriptions: New doxycycline hyclate 100 mg tablet 100 mg PO BID 7 Days Qty: 14 0RF Continued albuterol sulfate [ProAir HFA] 90 mcg/actuation HFA aerosol inhaler 1 - 2 puff Inhalation Q6H PRN Qty: 1 12RF anastrozole 1 mg tablet 1 mg PO DAILY ferrous sulfate 325 mg (65 mg iron) tablet,delayed release (DR/EC) 325 mg PO DAILY escitalopram oxalate 20 mg tablet 20 mg PO DAILY CALCIUM/MAG OXIDE/ZN 2 tab PO DAILY losartan 25 mg tablet 25 mg PO DAILY Qty: 90 5RF hydrochlorothiazide 12.5 mg tablet 12.5 mg PO DAILY Qty: 90 12RF Rybelsus 3 mg tablet 3 mg PO DAILY 30 Days Qty: 30 6RF Discharge Instructions Instructions: Cellulitis (ED) Additional Instructions: Your x-ray today shows no evidence of foreign body. Your symptoms may be secondary to a small foreign body that is not seen on exam or x-ray or you have developed an infection in that finger secondary to attempted foreign body removal and exposure to bacteria in the environment due to open wound. It is important to soak you finger several times daily for 10-20 minutes to help with potentially drawing out a foreign body or drainage in the setting of an infection. A prescription for antibiotics has been sent electronically to your pharmacy to take as directed until finished. Alternate tylenol and motrin as needed and directed for pain. You have been placed on care management's list to arrange for a follow-up appointment with your primary care doctor's office in the next 1 to 2 days for reevaluation. You may be referred to follow-up with orthopedics if your symptoms worsen or there are any findings concerning for need for surgical intervention. Return immediately to the emergency department if you develop any worsening or new concerning symptoms such as fever, increased pain, redness or swelling. Referrals: Ameya Alexandre MD [ [facility] PHYSICIAN] - Discharge Data Discharge Date/Time-TO BE ENTERED AT DEPARTURE: 02/08/23 10:54 Discharge Physician: Daylin Batista Medical Decision Making 0840 -- 62-year-old right hand dominant female with a history of obesity, hypertension, type 2 diabetes, breast cancer, GERD and asthma presents concern for retained splinter in her right second finger since yesterday. Her right second finger is edematous, erythematous with limitation of range of motion secondary to pain and swelling. She does have a 2 mm open wound consistent with her attempt at removing the retained foreign body with a needle. Discussed with patient that we can obtain an x-ray to assess for retained foreign body but we may not see it as it is wood. Discussed that I would be concerned about a developing infection as well. She states she has a history of anaphylaxis to penicillin and severe GI side effects with clindamycin and sulfa. We will likely treat with doxycycline. Will refer for x-ray, give a Boostrix, dose of ibuprofen and obtain a fingerstick glucose. 1000 --fingerstick glucose reported as 180s. X-ray shows no evidence of foreign body. Discussed with patient that there still may be of retained foreign body but as there is nothing obvious on x-ray are evident on exam, do not not recommend incision or exploration due to important structures within the finger. Her finger was soaked and covered with antibiotic and dressing. She was given a dose of doxycycline here and a prescription sent electronically to her pharmacy. She was advised to soak her finger for approximately 10 to 20 minutes several times daily. Patient was placed on care management's list to arrange for a follow-up appointment within her primary care doctor's office in the next 1 to 2 days for reevaluation. Discussed that she may need follow-up with orthop edics for further evaluation if directed by her PCP and if needing any surgical intervention. Usual and customary return precautions given prior to discharge. Medical Records Medical records reviewed: Yes I reviewed the patient's medical records. Imaging Data Radiologic Study: Radiologist's impression: XR FINGER RT INDEX CLINICAL HISTORY: ? concern for retained splinter DIP volar aspect.? TECHNIQUE:? 2D digital imaging was performed.? Three views. COMPARISON:? CR XR KNEE RT 3V AP,LAT,BLAISE from 01/22/2023 FINDINGS: BONES: No acute fracture is present. No bony destructive lesion is seen. JOINTS: No dislocation present.? Mild degenerative changes. SOFT TISSUE: Normal.? No visible foreign body.? No abnormal gas collection. IMPRESSION: No evidence of foreign body. HPI General Mode of arrival: ambulatory . Date/Time Provider Initiated Documentation: 02/08/23 08:26 . Limitations to Documentation: no limitations . Information obtained by: patient . HPI Narrative: Patient is a 62-year-old right hand dominant female with a history of obesity, hypertension, type 2 diabetes, breast cancer, GERD and asthma who presents to the ED with a complaint of concern for retained splinter in her right second finger. Patient states yesterday she was walking up a ramp with her hand on her railing with pressure-treated wood when she felt a splinter go into her right second finger on the volar aspect. She states she was able to see a wood splinter sticking out of her finger so she removed it. She thought that she c ould see a portion of it would splinter still remaining in her finger so she burned the tip of the needle and attempted to remove it but was unable as she says it appeared too deep. She states she left the area open the rest of the day, overnight and this morning and now she has increased pain, redness and swelling. She is unsure of her tetanus status. She denies any fever or chills. Related Data Home Medications Medication Instructions Recorded Confirmed Calcium/Mag Oxide/Zn 2 tab PO DAILY 02/27/13 01/22/23 anastrozole 1 mg tablet 1 mg PO DAILY 07/15/20 01/22/23 ferrous sulfate 325 mg (65 mg 325 mg PO DAILY 05/06/21 01/22/23 iron) tablet,delayed release losartan 25 mg tablet 25 mg PO DAILY #90 tabs 12/02/21 01/22/23 hydrochlorothiazide 12.5 mg tablet 12.5 mg PO DAILY #90 tab-caps 12/22/21 01/22/23 escitalopram oxalate 20 mg tablet 20 mg PO DAILY 01/28/22 01/22/23 albuterol sulfate 90 mcg/actuation 1 - 2 puff inhalation Q6H PRN ##1 02/02/22 01/22/23 aerosol inhaler (ProAir HFA) semaglutide 3 mg tablet (Rybelsus) 3 mg PO DAILY 30 days #30 tabs 01/31/23 doxycycline hyclate 100 mg tablet 100 mg PO BID 7 days #14 tabs 02/08/23 Previous Rx's Medication Instructions Recorded losartan 25 mg tablet 25 mg PO DAILY #90 tabs 12/02/21 hydrochlorothiazide 12.5 mg tablet 12.5 mg PO DAILY #90 tab-caps 12/22/21 albuterol sulfate 90 mcg/actuation 1 - 2 puff inhalation Q6H PRN ##1 02/02/22 aerosol inhaler (ProAir HFA) semaglutide 3 mg tablet (Rybelsus) 3 mg PO DAILY 30 days #30 tabs 01/31/23 doxycycline hyclate 100 mg tablet 100 mg PO BID 7 days #14 tabs 02/08/23 Allergies Allergy/AdvReac Type Severity Reaction Status Date / Time Penicillins Allergy Severe Anaphylaxsis, Verified 01/22/23 09:31 Ancef given 10/03/20 with no issue clindamycin AdvReac Severe N/V Verified 01/22/23 09:31 codeine AdvReac Unknown Nausea Verified 01/22/23 09:31 Sulfa (Sulfonamide AdvReac Unknown GI Verified 01/22/23 09:31 Antibiotics) MOLDS/SMUTS Allergy Mild CONGESTION Uncoded 01/22/23 09:31 CAT/FELINE Allergy Unknown Nausea Uncoded 01/22/23 09:31 General Stated Complaint: ForeignBody ISAAK: 4 Review of Systems All systems reviewed & are unremarkable except as noted in HPI and below Constitutional Constitutional: Reports as per HPI, Denies chills and Denies fever(s) Eyes Eyes: Denies blurry vision ENT Ears, Nose, Mouth, and Throat: Denies dizziness, Denies sore throat and Denies throat swelling Cardiovascular Cardiovascular: Denies chest pain and Denies dyspnea Respiratory Respiratory: Denies cough and Denies dyspnea Gastrointestinal Gastrointestinal: Denies abdominal pain, Denies diarrhea and Denies vomiting Genitourinary Genitourinary: Denies hematuria and Denies dysuria Musculoskeletal Musculoskeletal: Denies back pain and Denies numbness Comments: splinter in finger, now with swelling and pain Integumentary/Breasts Skin/Breast: Denies lesions and Denies rash Neurologic Neurologic: Denies dizziness, Denies localized weakness and Denies numbness Allergic/Immunologic Allergic/Immunologic: Denies throat swelling PFSH All Active Problems (Updated 02/08/23 @ 10:01 by Daylin Batista DO) Infected finger (Acute) Foreign body of finger (Acute) Primary osteoarthritis of right knee (Acute) Primary osteoarthritis of left knee (Acute) Loose bodies of knee involving multiple articular structures (Acute) Knee pain, left (Acute) Decreased hearing (Acute) Fatigue (Acute) Frequent falls (Acute) Status post arthroscopy of right shoulder (Acute 10/03/21) COVID-19 (Acute) 10/22/21 Bursitis of right shoulder (Acute) Traumatic rupture of right proximal biceps tendon (Acute ~06/2021) Traumatic tear of right rotator cuff (Acute ~06/2021) Shingles (Acute) Iron (Fe) deficiency anemia (Acute) Chest wall deformity (Acute) Palpitation (Acute) Balance disorder (Acute) Elevated serum creatinine (Acute) Fatigue (Acute) Skin lesion (Acute) Rib pain on right side (Acute) rib fx per ct Increased body mass index (Chronic) Stress at home (Chronic 06/09/16) Diabetes mellitus (Chronic) Abnormal cervical Papanicolaou smear (Acute) Spinal stenosis of lumbar region (Chronic 09/18/14) mri 09/09 - no metastasis seen multi level moderate to severe spinal stenosis and foraminal encroachment ; epidural and neurosurgical consult in the works 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 secondary to breast chemo Migraine (Chronic) Malignant neoplasm of female breast (Chronic 06/23/10) recurrent 09/08 plan double mastectomy S/P surgery, radiation and chemo bone scan scheduled 09/09 - hip pain ? 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) Essential hypertension (Chronic 11/03/13) Depressive disorder (Chronic 08/26/93) Asthma (Chronic) Medical History (Updated 02/08/23 @ 10:01 by Daylin Batista DO) Abnormal cervical Papanicolaou smear 09/27/99 Anemia (09/06/17) secondary to heavy menses; s/p ablation 2003. Still persistent heavy menses Closed fracture of one rib 08/26/97 Diabetes Hx of malignant neoplasm of breast 2009 recurrance 2012 Hypokalemia 07/22/17 Obesity, Class III, BMI 40-49.9 (morbid obesity) Palliative care patient Pharyngitis Polyp of colon (08/26/99) Tension-type headache Surgical History (Updated 12/10/21 @ 13:10 by Dunia Wilks) Biopsy, Soft Tissue (02/12/17) right anterior chest wall mass at incision site, core biopsy = adenocarcinom a, invasive, ductal type, nuclear grade III Breast, Lumpectomy 2010- x3 to get clear margins followed by chemo and radiation Breast, Mastectomy right 2013- recurrent breast cancer- followed by chemotherapy Cervical Procedure (~1999) colposcopy section Colonoscopy - IV Sedation (04/26/13) DR. RODAS Endometrial Ablation (~2003) History of mastectomy Rt breast knee repair (~08/2011) Status post colposcopy 09/27/99 Tonsillectomy Tooth extraction wisdom tooth Family History Mother , 76 Depression Uterine cancer Breast cancer Lung cancer Father Diabetes Depression Lymphoma Cancer of neck Alcohol abuse Sister Asthma Maternal Grandfather , 88 Cancer of neck Paternal Grandfather No problems noted. Maternal Grandmother , 80 Essential hypertension Heart disease Paternal Grandmother No problems noted. Son Depression Alcohol abuse Paraplegia Hypertension Substance abuse Daughter No problems noted. Daughter No problems noted. Social History (Updated 07/09/22 @ 16:53 by Dunia Felix) Smoking/Tobacco Use Status: Never Second Hand Exposure: Yes Smoking risk assessment performed?: Yes Alcohol Intake: former Drug use: Never Substance use type: does not use Counseling given: No Counseling provided: none Caregiver/Support person: No Household members: children and adopted family Housing: house Communication Needs: None Do you need help understanding health information?: Rarely Pets and animals: Yes Pets and animals: cat(s) Sexually active: No Do you think of yourself as: straight/heterosexual Current gender identity: female What is your relationship status?: How often do you talk on the phone with friends or family?: three or more times per week Do you belong to any clubs or organized social groups?: no Panel score (0-1 are the most socially isolated patients): 1 What type of physical activity do you participate in: walking and swimming Duration: 15-30 minutes/day Frequency: 5-6 times per week Zabrina/Episcopalian: No preference Special zabrina needs: No Seatbelt use: always 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 Do you feel safe at home: Yes Do you feel safe in your relationship?: Yes Exam Const General: cooperative and no acute distress Orientation: alert, awake and oriented x3 HENMT Head: normal to inspection Mouth: oral mucosae normal Eyes General: appearance normal, both eyes and all related structures Neck Neck: normal visual inspection Resp Effort & Inspection: normal respiratory effort and able to speak in complete sentences Cardio Rate: regular rate Skin General skin exam: no rashes or lesions noted Neuro General: patient alert, patient awake and patient oriented x3 Motor: muscle tone normal throughout Extrem Hand/finger images: 1. 2mm open wound noted on volar aspect of DIP of right second finger. The entire right finger has mild to moderate edema, erythema and difficulty with flexion secondary to swelling and pain. There is no obvious foreign body, crep itus or deformity. Psych Appearance: grossly normal Affect: normal affect Course Vital Signs Vital signs: Vital Signs Temperature 98.7 F 02/08/23 08:36 Pulse 81 02/08/23 08:36 Respiratory Rate 15 02/08/23 08:36 Blood Pressure 125/99 H 02/08/23 08:36 Pulse Oximetry 96 02/08/23 08:36 Temperature 98.7 F 02/08/23 08:36 Temperature Source Core 02/08/23 08:36 Pulse 81 02/08/23 08:36 Respiratory Rate 15 02/08/23 08:36 Blood Pressure 125/99 H 02/08/23 08:36 Blood Pressure Position Sitting 02/08/23 08:36 Pulse Oximetry 96 02/08/23 08:36 Oxygen Delivery Method Room Air 02/08/23 08:36 Oxygen Flow Rate 0 02/08/23 08:36 Pain Level 2 02/08/23 08:46
[2023-02-08] MEDS: Ibuprofen 600 MG TAB PO (09:10)
--- NOTE | 2023-02-08 10:10 | NUR.NOTE ---
Nursing Note: f/up faxed to [facility]
[2023-02-08] MEDS: Doxycycline Hyclate 100 MG CAP PO (10:54)
== END 2023-02-08 10:54 | disposition home or self-care (01) ==
PROVIDERS: Emergency Provider Physician Assistant; PCP Family Medicine
DX: S60.450A Superficial foreign body of right index finger, initial encounter (principal); L08.9 Local infection of the skin and subcutaneous tissue, unspecified; E11.9 Type 2 diabetes mellitus without complications; I10 Essential (primary) hypertension; W45.8XXA Other foreign body or object entering through skin, initial encounter
CPT/HCPCS: 90471; 99284; 73140; 99283

== ENCOUNTER 2023-03-25 01:48 | Outpatient (CLI) | payer MEDICARE, BC, SELFPAY ==
--- NOTE | 2023-03-25 14:00 | DI.DEXA_ITS ---
Exam(s) XR DEXA BONE DENSITY W/WO OBDULIO EXAM: XR DEXA BONE DENSITY W/WO OBDULIO CLINICAL HISTORY: LONG-TERM USE OF AROMATASE INHIBITORS, Z79.811; H/O RT BREAST CA, C50.911 TECHNIQUE: GeoQuip Horizon C densitometer analysis of left hip, lumbar spine and left forearm. Lat eral survey image of the thoracic and lumbar spine. COMPARISON: MR MRI - LUMBAR SPINE WO CONTRAST from 03/03/2018 FINDINGS: Lateral view of the thoracic and lumbar spine shows no evidence of compression fractures. Bone mineral density measurements of the lumbar spine correspond to a total T-score of 2.6, in the n ormal range. Bone mineral density measurements of the left hip correspond to a total T-score of 0.8. The femoral neck T-score is 0.7, in the normal range.. The left forearm bone mineral density measurements correspond to a T-score of the distal 3rd of the 0.5, in the normal range.. IMPRESSION: Normal bone density.
== END 2023-03-25 02:08 ==
LOC: DI 01:49
PROVIDERS: PCP Family Medicine; Visit Provider Internal Medicine Hematology & Oncology
DX: Z79.811 Long term (current) use of aromatase inhibitors (principal); Z12.31 Encounter for screening mammogram for malignant neoplasm of breast; C50.911 Malignant neoplasm of unspecified site of right female breast
CPT/HCPCS: 77080

== ENCOUNTER 2023-05-14 17:09 | Outpatient (CLI) | payer MEDICARE, BC, SELFPAY ==
[2023-05-14 16:01] LABS: Abs Immature Grans 0.04 10^3/uL (0.0-0.06); Absolute Basophil Count 0.06 10^3/uL (0.0-0.2); Absolute Lymphocyte Count 2.82 10^3/uL (1.2-3.4); Absolute Monocyte Count 0.51 10^3/uL (0.1-0.8); Absolute Neutrophil Count 6.89 10^3/uL (1.2-6.7); Basophils % 0.6; Eosinophils % 1.9; HCT 39.6 % (36.0-46.0); HGB 12.9 g/dL (11.2-15.7); Immature Grans % 0.4; Lymphocytes % 26.8; MCHC 32.6 % (32.0-36.0); MCV 86 fL (80-95); MPV 9.9 fL (8.0-11.0); Monocytes % 4.8; Neutrophils % 65.5; Platelet Count 305 10^3/uL (130-400); RDW 13.8 % (11.7-14.6); RDW-SD 42.8 fL; WBC 10.52 10^3/uL (4.4-10.8)
[2023-05-14 16:42] LABS: ALT 34 U/L (14-59); AST 30 U/L (15-37); Albumin 3.7 g/dL (3.4-5.0); Alkaline Phosphatase 121 U/L (46-116); Anion Gap 10.7 mmol/L (3-11); BUN 15 mg/dL (7-18); CO2 26.3 mmol/L (21.0-32.0); CREATININE 0.9 mg/dL (0.55-1.02); Calcium 9.8 mg/dL (8.5-10.1); Chloride 106 mmol/L (98-107); Estimated GFR 73.19 (mL/min/1.73m2); Glucose 127 mg/dL (74-106); Potassium 3.3 mmol/L (3.5-5.1); Sodium 143 mmol/L (136-145); Total Protein 7.5 g/dL (6.4-8.2)
== END 2023-05-14 17:10 | disposition home or self-care (01) ==
LOC: LBO 17:09
PROVIDERS: PCP Family Medicine; Visit Provider Nurse Practitioner Family
DX: R42 Dizziness and giddiness (principal); R51.9 Headache, unspecified; I10 Essential (primary) hypertension; E11.9 Type 2 diabetes mellitus without complications
CPT/HCPCS: 36415; 80053; 85025

== ENCOUNTER → 2023-05-14 17:16 | Outpatient (CLI) | payer MEDICARE, BC, SELFPAY ==
--- NOTE | 2023-05-14 15:27 | DI.CT_ITS ---
Exam(s) CT HEAD WO EXAM: CT HEAD WO CLINICAL HISTORY: headache, dizziness R51.9 HEADACHE R42 DIZZINESS. TECHNIQUE: Imaging Protocol: Axial computed tomography images with coronal and sagittal reformatted images were created and reviewed COMPARISON: CT CT HEAD WO from 05/28/2021 FINDINGS: There are no skull fractures. There is no fluid in the visualized paranasal sinuses. There is no evidence of intracranial hemorrhage, mass effect, or shift of midline structures. There are no extra-axial fluid collections. The ventricles are not enlarged or shifted and there is no blo od within the ventricular system nor within the basal cisterns. IMPRESSION: No acute intracranial findings on this noninfused CT scan of the brain. RADIATION DOSE DELIVERED: 727.37mGy.cm Total DLP DATA REPOSITORY: All CT scans at this facility are submitted to the National Radiology Data Registry (NRDR) Dose Index Registry (DIR) with the [employer] (A[employer]). RADIATION OPTIMIZATION: All CT scans at this facility use at least one of these dose optimization te chniques: automated exposure control; mA and/or kV adjustment per patient size (includes targeted exa ms where dose is matched to clinical indication); or iterative reconstruction.
== END ==
PROVIDERS: PCP Family Medicine; Visit Provider Nurse Practitioner Family
DX: R42 Dizziness and giddiness (principal); R51.9 Headache, unspecified
CPT/HCPCS: 36415; 80053; 70450; 85025

== ENCOUNTER 2023-08-03 16:22 | Outpatient (REF) | payer MEDICARE, BC, SELFPAY ==
[2023-08-03 13:13] LABS: COMMENT (LAB VIEW ONLY) 126.19 mg/dL; Microalb ug/mg Crea 7.1 ug/mg Cr
== END 2023-08-03 16:23 | disposition home or self-care (01) ==
LOC: LBN 16:22
PROVIDERS: PCP Family Medicine; Visit Provider Family Medicine
DX: E11.9 Type 2 diabetes mellitus without complications (principal)
CPT/HCPCS: 82043; 82570

== ENCOUNTER 2023-10-28 04:57 | Outpatient (CLI) | payer MEDICARE, BC, SELFPAY ==
[2023-10-28 08:58] LABS: Abs Immature Grans 0.02 10^3/uL (0.0-0.06); Absolute Basophil Count 0.04 10^3/uL (0.0-0.2); Absolute Eosinophil Count 0.15 10^3/uL (0.0-0.7); Absolute Lymphocyte Count 1.97 10^3/uL (1.2-3.4); Absolute Monocyte Count 0.36 10^3/uL (0.1-0.8); Absolute Neutrophil Count 5.35 10^3/uL (1.2-6.7); Basophils % 0.5; Eosinophils % 1.9; HCT 37.8 % (36.0-46.0); HGB 12.5 g/dL (11.2-15.7); Immature Grans % 0.3; MCH 28.2 pg (27.0-33.0); MCHC 33.1 % (32.0-36.0); MCV 85 fL (80-95); Monocytes % 4.6; Neutrophils % 67.7; Platelet Count 302 10^3/uL (130-400); RBC 4.43 10^6/uL (3.93-5.22); RDW 13.9 % (11.7-14.6); RDW-SD 43.5 fL; WBC 7.89 10^3/uL (4.4-10.8)
[2023-10-28 09:20] LABS: Hemoglobin A1C 6.3 % (<5.7)
[2023-10-28 09:39] LABS: ALT 34 U/L (14-59); AST 23 U/L (15-37); Albumin 3.5 g/dL (3.4-5.0); Alkaline Phosphatase 126 U/L (46-116); Anion Gap 5.6 mmol/L (3-11); BUN 20 mg/dL (7-18); Bilirubin, Total 1.3 mg/dL (0.2-1.0); CO2 32.4 mmol/L (21.0-32.0); CREATININE 0.9 mg/dL (0.55-1.02); Calcium 9.5 mg/dL (8.5-10.1); Chloride 103 mmol/L (98-107); Estimated GFR 72.73 (mL/min/1.73m2); Glucose 127 mg/dL (74-106); Potassium 3.9 mmol/L (3.5-5.1); Sodium 141 mmol/L (136-145); Total Protein 7.5 g/dL (6.4-8.2)
== END 2023-10-28 04:58 | disposition home or self-care (01) ==
LOC: LBO 04:58
PROVIDERS: PCP Family Medicine; Visit Provider Family Medicine
DX: E11.9 Type 2 diabetes mellitus without complications (principal)
CPT/HCPCS: 36415; 80053; 83036; 85025

== ENCOUNTER → 2023-11-04 13:30 | Outpatient (BNVA) | payer MEDICARE, BC, SELFPAY | PROVIDERS: PCP Family Medicine; Referring Provider Family Medicine; Visit Provider Physical Therapy Assistant | DX: Z12.11 Encounter for screening for malignant neoplasm of colon (principal) ==

== ENCOUNTER 2023-12-01 08:13 | Day surgery (SDC) | payer MEDICARE, BC, SELFPAY ==
[2023-12-01 08:36] VITALS: BP 119/86; PULSE 80; RESP 18; TEMP 36.6; O2SAT 100
[2023-12-01] MEDS: Lactated Ringers 1,000 ML 80 ML IV (09:14)
--- NOTE | 2023-12-01 09:25 | W.COLOREPORT ---
Date of service: 12/01/23 Time of Service: 09:25 Colonoscopy Report Procedure Description: PROCEDURES PERFORMED: 1. Colonoscopy PREOPERATIVE DIAGNOSIS: Surveillance colonoscopy POSTOPERATIVE DIAGNOSIS: Mild diverticular disease, mild hemorrhoid disease SURGEON: Lila Sheikh MD INDICATION FOR PROCEDURE: the patient is a 63-year-old woman who has no symptoms and no family history of colon cancer. Her last colonoscopy was 11 years ago and was normal. She is due for surveillance. FINDINGS: Normal terminal ileum. No polyps. Minimal/early diverticular changes in the sigmoid colon, mild grade 1 internal hemorrhoids SURVEILLANCE interval/FOLLOW-UP: 10 years SPECIMENS: None EBL: Minimal COMPLICATIONS: None QUALITY of prep: Excellent Procedure in detail: The patient gave written consent and was in agreement with the indications, the potential risks as well as the benefits of the procedure. They were taken to the endoscopy suite and laid in the left lateral decubitus position. A timeout was performed and anesthesia was administered which was tolerated well. I started the procedure. Digital rectal and visual examination was performed and grossly within normal limits. A well-lubricated flexible colonoscope was then introduced and passed without any notable difficulty all the way to the cecum identified by the ileocecal valve and the appendiceal orifice. Terminal ileum was intubated and looked normal. The scope was then slowly withdrawn with the above-noted findings. The patient tolerated the procedure well and was taken to the PACU in hemodynamically stable condition.
--- NOTE | 2023-12-01 09:25 | W.PM.DSUDISC ---
Date of service: 12/01/23 Time of Service: 09:26 Discharge Plan Disposition Patient Disposition: Home Condition: Good Discharge Details Attending Provider: Adrian Sheikh Primary Care Provider: Smita Quintero Home Meds and New Rx's Prescriptions: No Action albuterol sulfate [ProAir HFA] 90 mcg/actuation HFA aerosol inhaler 1 - 2 puff Inhalation Q6H PRN Qty: 8.5 12RF ferrous sulfate 325 mg (65 mg iron) tablet,delayed release (DR/EC) 325 mg PO DAILY bisacodyl [Dulcolax (bisacodyl)] 5 mg tablet,delayed release (DR/EC) 5 mg PO ONCE Qty: 4 0RF Rx Instructions: Colonoscopy Bowel Prep- Per Instructions polyethylene glycol 3350 17 gram/dose powder 238 g PO ONCE Qty: 238 0RF Rx Instructions: Colonoscopy Bowel Prep- Per Instructions escitalopram oxalate 20 mg tablet 20 mg PO DAILY Qty: 90 4RF losartan 25 mg tablet 25 mg PO DAILY Qty: 90 5RF hydrochlorothiazide 12.5 mg tablet 12.5 mg PO DAILY Qty: 90 12RF anastrozole 1 mg tablet 1 mg PO DAILY Qty: 90 3RF tirzepatide (weight loss) 5 mg/0.5 mL pen injector 5 mg subcut QWEEK Qty: 2 2RF Discharge Instructions Additional Instructions: FINDINGS: No polyps were found. No significant disease processes were found. No inflammation. It is some very minimal diverticular changes and hemorrhoid changes but these are extremely common, benign and nothing needs to be done about them. You should repeat another colonoscopy in 10 years. Stand Alone Forms: Colonoscopy Post Instructions Activity:: Activity as Tolerated Diet:: As Tolerated
--- NOTE | 2023-12-01 09:28 | W.ANESPRE ---
General Info Date of Service Date Performed: 12/01/23 Height: 4 ft 11 in Weight: 108.677 kg Body Mass Index (BMI): 48.4 Surgical Procedure: Operation Date: 12/01/23 09:50 Proposed Procedure Side Surgeon p Justino Sheikh MD Meds Allergies and Home Medications Allergies Allergy/AdvReac Type Severity Reaction Status Date / Time Penicillins Allergy Severe Anaphylaxsis, Verified 12/01/23 08:35 Ancef given 10/03/20 with no issue clindamycin AdvReac Severe N/V Verified 12/01/23 08:35 codeine AdvReac Unknown Nausea Verified 12/01/23 08:35 Sulfa (Sulfonamide AdvReac Unknown GI Verified 12/01/23 08:35 Antibiotics) MOLDS/SMUTS Allergy Mild CONGESTION Uncoded 12/01/23 08:35 CAT/FELINE Allergy Unknown Nausea Uncoded 12/01/23 08:35 Home Medication Medication Instructions Recorded ferrous sulfate 325 mg (65 mg 325 mg PO DAILY 05/06/21 iron) tablet,delayed release escitalopram oxalate 20 mg tablet 20 mg PO DAILY #90 tabs 02/15/23 hydrochlorothiazide 12.5 mg tablet 12.5 mg PO DAILY #90 tab-caps 03/16/23 losartan 25 mg tablet 25 mg PO DAILY #90 tabs 03/16/23 anastrozole 1 mg tablet 1 mg PO DAILY #90 tabs 05/31/23 albuterol sulfate 90 mcg/actuation 1 - 2 puff inhalation Q6H PRN #8.5 08/03/23 aerosol inhaler (ProAir HFA) grams tirzepatide (weight loss) 5 mg/0.5 5 mg (0.5 mL) subcut QWEEK #2 mL 10/26/23 mL subcutaneous pen injector bisacodyl 5 mg tablet,delayed 5 mg PO ONCE Colonoscopy Bowel 11/04/23 release (Dulcolax (bisacodyl)) Prep #4 tabs polyethylene glycol 3350 17 238 g PO ONCE Colonoscopy Bowel 11/04/23 gram/dose oral powder Prep #238 grams Current Visit Medications: Current Medications Generic Name Dose Route Start Last Admin Trade Name Freq PRN Reason Stop Dose Admin Ringer's Solution 1,000 mls @ 80 mls/hr 12/01/23 06:00 12/01/23 09:14 IV 12/30/23 23:59 80 mls/hr INFUSION JAHAIRA Administration IV Miscellaneous Supplies 1 each 12/01/23 06:00 Iv Access IV 12/30/23 23:59 DIRECTED JAHAIRA Sodium Chloride 0 ml 12/01/23 06:00 Normal Saline Flush 10 Ml Syr IV 12/30/23 23:59 PRN PRN Sodium Chloride 0 ml 12/01/23 06:00 Normal Saline 10 Ml Vial IJ 12/30/23 23:59 DIRECTED PRN Sterile Water 0 ml 12/01/23 06:00 Water,Injection,Sterile 10 Ml Vial IJ 12/30/23 23:59 DIRECTED PRN PFSH Active Problems Active Problems: Problem Status Onset Code Screening for colon cancer Z12.11 Primary osteoarthritis of right knee M17.11 Primary osteoarthritis of left knee M17.12 Loose bodies of knee involving multiple articular structures M23.40 Knee pain, left M25.562 Decreased hearing H91.90 Fatigue R53.83 Frequent falls R29.6 Status post arthroscopy of right shoulder 10/03/21 Z98.890 COVID-19 U07.1 Bursitis of right shoulder M75.51 Traumatic rupture of right proximal biceps tendon ~06/2021 S46.211A Traumatic tear of right rotator cuff ~06/2021 S46.011A Shingles B02.9 Iron (Fe) deficiency anemia D50.9 Chest wall deformity M95.4 Palpitation R00.2 Balance disorder R26.89 Elevated serum creatinine R79.89 Fatigue R53.83 Skin lesion L98.9 Rib pain on right side R07.81 Abnormal cervical Papanicolaou smear R87.619 Diabetes mellitus E11.9 Stress at home 06/09/16 F43.9 Spinal stenosis of lumbar region 09/18/14 M48.061 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 Still persistent heavy menses Obesity, Class III, BMI 40-49.9 (morbid obesity) Diabetes Hx of malignant neoplasm of breast 2009 recurrance 2012 Palliative care patient Surgical History Surgical History History of mastectomy (B) Status post colposcopy 09/27/99 knee repair (~08/2011) Tonsillectomy section Endometrial Ablation (~2003) Tooth extraction wisdom tooth Colonoscopy - IV Sedation (04/26/13) DR. RODAS Cervical Procedure (~1999) colposcopy Breast, Mastectomy right 2013- recurrent breast cancer- followed by chemotherapy Breast, Lumpectomy 2009- x3 to get clear margins followed by chemo and radiation Biopsy, Soft Tissue (02/12/17) right anterior chest wall mass at incision site, core biopsy = adenocarcinoma, invasive, ductal type, nuclear grade III Tobacco Smoking/Tobacco Use Status: Never Passive smoking exposure: Yes Second hand exposure: Yes Alcohol Alcohol Intake: former Substance Use Substance use: Daily Substance use type: marijuana Counseling provided: none Details: edibles Vital Signs and Lab Results Vital Signs Most Recent Vital Signs in EMR: Most Recent Vital Signs Temp Pulse Resp BP Pulse Ox 36.6 C 80 18 119/86 100 12/01/23 08:36 12/01/23 08:36 12/01/23 08:36 12/01/23 08:36 12/01/23 08:36 Point of Care Results Point of Care Results: Finger Stick Blood Glucose 107 12/01/23 08:44 Lab Results Blood Type / Crossmatch: No Data to Display Complete Blood Count: No Data to Display Complete Metabolic Panel: No Data to Display Liver Function Panel: No Data to Display Coagulation Panel: No Data to Display Cardiac Panel: No Data to Display Arterial Blood Gas: No Data to Display Venous Blood Gas: No Data to Display Pancreas Panel: No Data to Display Thyroid Panel: No Data to Display Infectious Disease: No Data to Display Blood Cultures: No Data to Display Toxicology Panel: No Data to Display Imaging and Studies Imaging and Studies Study information below may be from another EMR and interpreted by another provider. Please see original notes in EMR for more complete details. Stress Test Summary: Date of Exam: 10/21/20Sex: F Admission Date: 10/21/20 : 1960 Age: 60 Exam: Exercise Treadmill Indications: Fatigue, chest pain. MPI Conclusion The ejection fraction was 65% with stress. There were no wall motion abnormalities. There was no evidence of ischemia on the imaging portion exam. This represents a normal SPECT stress test. Anesthesia Assessment and Plan Anesthesia History Personal History: Delayed Emergence Family History: No Family History of Anesthesia Complications Exercise Tolerance Exercise Tolerance: Metabolic Equivalents>4 Pertinent Negatives Pertinent Negatives: No Symptoms of GERD and No Major Cardiovascular Symptoms or Complaints Cardiac & Pulmonary Exam Cardiac Exam: Normal S1/S2 Heart Sounds Pulmonary Exam: Clear Bilateral Breath Sounds Implantable Cardiac Device Does patient have a Pacemaker or an ICD?: No Airway Exam Known Difficult Airway: No Mallampati Class: 2 Mouth Opening: Normal (> 3cm) Thyromental Distance: Greater than 3 cm Neck Range of Motion: Full ROM Neck Circumference: Normal Teeth Condition: Normal Dentition ASA Classification ASA Score: ASA 3 Emergency Case?: No NPO Status NPO Status: NPO Clears >2 hours, Solids >8 hours Anesthesia Plan Resuscitation Status: Full Code Anesthesia Technique: General Anesthesia Airway Planned: Natural Airway Monitors Used: Standard Monitors
[2023-12-01 09:32] VITALS: BMI 48.4
[2023-12-01 10:08] VITALS: BP 93/73; PULSE 72; RESP 16; TEMP 36.6; O2SAT 98
--- NOTE | 2023-12-01 10:32 | W.ANESPOSTOP ---
Postoperative Evaluation Date, Time and Location Date Performed: 12/01/23 Time Performed: 10:12 Patient Location: Day Surgery Unit Vital Signs Most Recent Imported Vital Signs: Most Recent Vital Signs Temp Pulse Resp BP Pulse Ox 36.6 C 72 16 93/73 L 98 12/01/23 10:08 12/01/23 10:08 12/01/23 10:08 12/01/23 10:08 12/01/23 10:08 Pain Score Most Recent Pain Score: Most Recent Pain Score Pain Level 0 12/01/23 10:08 Assessment Mental Status: Awake (Alert & Oriented to Patient Baseline) Airway and Respiratory Function: Patent airway with normal (patient baseline) respiratory exam Cardiovascular Function: Hemodynamically Stable Hydration Status: Adequately Hydrated Nausea & Vomiting: No Nausea or Vomiting Pain: Pt. Denies Any Pain Peripheral Nerve Block: Patient did not receive a nerve block
[2023-12-01 10:39] VITALS: BP 108/73; PULSE 64; RESP 16; TEMP 36.6; O2SAT 100
== END 2023-12-01 10:51 | disposition home or self-care (01) ==
PROVIDERS: PCP Family Medicine; Visit Provider Student in an Organized Health Care Education/Training Program
PROC: 0DJD8ZZ Inspection of Lower Intestinal Tract, Via Natural or Artificial Opening Endoscopic (ICD-10-PCS; CPT 45378; principal; 2023-12-01 09:45)
DX: Z12.11 Encounter for screening for malignant neoplasm of colon (principal); K57.30 Diverticulosis of large intestine without perforation or abscess without bleeding; K64.0 First degree hemorrhoids
CPT/HCPCS: G0121; 00123; J2704

== ENCOUNTER 2023-12-24 02:11 | Outpatient (CLI) | payer MEDICARE, BC, SELFPAY ==
[2023-12-24 12:01] LABS: ALT 40 U/L (14-59); AST 30 U/L (15-37); Albumin 3.7 g/dL (3.4-5.0); Alkaline Phosphatase 125 U/L (46-116); Anion Gap 9.4 mmol/L (3-11); BUN 16 mg/dL (7-18); Bilirubin, Total 1.2 mg/dL (0.2-1.0); CO2 29.6 mmol/L (21.0-32.0); CREATININE 0.9 mg/dL (0.55-1.02); Calcium 9.4 mg/dL (8.5-10.1); Chloride 103 mmol/L (98-107); Estimated GFR 72.73 (mL/min/1.73m2); Glucose 99 mg/dL (74-106); Potassium 3.7 mmol/L (3.5-5.1); Sodium 142 mmol/L (136-145); Total Protein 7.6 g/dL (6.4-8.2)
== END 2023-12-24 02:12 | disposition home or self-care (01) ==
LOC: LBO 02:11
PROVIDERS: PCP Family Medicine; Visit Provider Family Medicine
DX: I10 Essential (primary) hypertension (principal)
CPT/HCPCS: 36415; 80053

== ENCOUNTER → 2024-01-20 08:20 | Outpatient (BNVA) | payer MEDICARE, BC, SELFPAY | PROVIDERS: PCP Family Medicine; Referring Provider Family Medicine | DX: M17.12 Unilateral primary osteoarthritis, left knee (principal); M17.11 Unilateral primary osteoarthritis, right knee | CPT/HCPCS: 20610; J1010 ==

== ENCOUNTER → 2024-04-10 09:21 | Outpatient (BNVA) | payer MEDICARE, BC, SELFPAY | PROVIDERS: PCP Family Medicine; Referring Provider Family Medicine; Visit Provider Student in an Organized Health Care Education/Training Program | DX: M17.11 Unilateral primary osteoarthritis, right knee (principal); M17.12 Unilateral primary osteoarthritis, left knee | CPT/HCPCS: 99213 ==

== ENCOUNTER 2024-05-25 04:25 | Outpatient (CLI) | payer MEDICARE, BC, SELFPAY ==
[2024-05-25 11:31] LABS: HCT 40.9 % (36.0-46.0); HGB 13.8 g/dL (11.2-15.7); MCH 29.4 pg (27.0-33.0); MCHC 33.7 % (32.0-36.0); MCV 87 fL (80-95); MPV 9.9 fL (8.0-11.0); Platelet Count 297 10^3/uL (130-400); RBC 4.69 10^6/uL (3.93-5.22); RDW 13.8 % (11.7-14.6); RDW-SD 43.8 fL; WBC 10.14 10^3/uL (4.4-10.8)
[2024-05-25 11:44] LABS: BUN 17 mg/dL (7-18); CREATININE 0.9 mg/dL (0.55-1.02); Calcium 9.5 mg/dL (8.5-10.1); Chloride 105 mmol/L (98-107); Estimated GFR 72.73 (mL/min/1.73m2); Glucose 109 mg/dL (74-106); Potassium 3.4 mmol/L (3.5-5.1); Sodium 141 mmol/L (136-145)
== END 2024-05-25 04:26 | disposition home or self-care (01) ==
LOC: LBO 04:25
PROVIDERS: PCP Family Medicine; Visit Provider Student in an Organized Health Care Education/Training Program
DX: Z01.818 Encounter for other preprocedural examination (principal); M17.12 Unilateral primary osteoarthritis, left knee
CPT/HCPCS: 36415; 80048; 85027; 99024

== ENCOUNTER 2024-05-25 15:21 | Outpatient (CLI) | payer MEDICARE, BC, SELFPAY ==
--- NOTE | 2024-05-25 10:20 | DI.RAD_ITS ---
Exam(s) XR STANDING ALIGNMENT EXAM: XR STANDING ALIGNMENT CLINICAL HISTORY: PRE OP. TECHNIQUE: 2D digital imaging was performed. Standing AP views were performed from the pelvis throu gh the ankles. COMPARISON: No exams were available for comparison FINDINGS: BONES: No acute fracture is present. No bony destructive lesion is seen. Leg length discrepancy: None JOINTS: Knees: Severe narrowing of the medial femoral tibial joint spaces of both knees, right greate r than left. The ankle joints are unremarkable. The hip joints are unremarkable. SOFT TISSUE: Normal. IMPRESSION: Severe degenerative changes both knees. No significant leg length discrepancy. DATA REPOSITORY: RADIATION DOSE DELIVERED:
== END 2024-05-25 15:22 | disposition home or self-care (01) ==
LOC: DIORS 15:22
PROVIDERS: PCP Family Medicine; Visit Provider Physician Assistant
DX: M17.11 Unilateral primary osteoarthritis, right knee (principal); M17.12 Unilateral primary osteoarthritis, left knee; Z01.818 Encounter for other preprocedural examination
CPT/HCPCS: 36415; 80048; 85027; 99024; 77073

== ENCOUNTER 2024-06-06 06:06 | Day surgery (SDC) | payer MEDICARE, BC, SELFPAY ==
[2024-06-06] VITALS (34 sets, daily range): BP systolic 95–141; BP diastolic 36–81; PULSE 57–81; RESP 9–21; TEMP 35.9–36.6; O2SAT 93–100; BMI 44.4
--- NOTE | 2024-06-06 06:22 | ANES.PREOP_ITS ---
General Info Date of Service Date Performed: 06/06/24 Height: 4 ft 11 in Weight: 99.79 kg Body Mass Index (BMI): 44.4 Surgical Procedure: Operation Date: 06/06/24 07:40 Proposed Procedure Side Surgeon p Knee Total Arthroplasty, Cementless CR Right Ameya Alexandre MD Meds Allergies and Home Medications Allergies Allergy/AdvReac Type Severity Reaction Status Date / Time Penicillins Allergy Severe Anaphylaxsis, Verified 06/06/24 06:16 Ancef given 10/03/20 with no issue clindamycin AdvReac Severe N/V Verified 06/06/24 06:16 codeine AdvReac Unknown Nausea Verified 06/06/24 06:16 Sulfa (Sulfonamide AdvReac Unknown GI Verified 06/06/24 06:16 Antibiotics) MOLDS/SMUTS Allergy Mild CONGESTION Uncoded 06/06/24 06:16 CAT/FELINE Allergy Unknown Nausea Uncoded 06/06/24 06:16 Home Medication ?Medication ?Instructions ?Recorded albuterol sulfate 90 mcg/actuation 1 - 2 puff inhalation Q6H PRN #8.5 05/08/24 aerosol inhaler grams hydrochlorothiazide 12.5 mg tablet 12.5 mg PO DAILY #90 tab-caps 05/08/24 tirzepatide (weight loss) 7.5 7.5 mg (0.5 mL) subcut QWEEK #8 mL 05/08/24 mg/0.5 mL subcutaneous pen injector losartan 25 mg tablet 25 mg PO DAILY #90 tabs 05/22/24 potassium chloride 20 mEq 20 meq PO DAILY #90 tabs 05/26/24 tablet,extended release ibuprofen 600 mg tablet (IBU) 600 mg PO ONCE 06/06/24 Current Visit Medications: Current Medications Generic Name Dose Route Start Last Admin Trade Name Freq PRN Reason Stop Dose Admin Acetaminophen 1,000 mg 06/06/24 06:00 Acetaminophen 500 Mg Tab PO 06/06/24 23:59 PREOP JAHAIRA Celecoxib 400 mg 06/06/24 06:00 Celecoxib 200 Mg Cap PO 06/06/24 23:59 PREOP JAHAIRA Gabapentin 300 mg 06/06/24 06:00 Gabapentin 300 Mg Cap PO 06/06/24 23:59 PREOP JAHAIRA Ringer's Solution 1,000 mls @ 80 mls/hr 06/06/24 06:00 IV 06/06/24 23:59 INFUSION JAHAIRA Cefazolin Sodium/Dextrose 2 gm in 50 mls @ 100 mls/hr 06/06/24 06:00 Ancef Duplex IVPB 06/06/24 23:59 PREOP JAHAIRA Tranexamic Acid/Sodium Chloride 1,000 mg in 100 mls @ 600 mls/hr 06/06/24 06:00 IVPB 06/06/24 23:59 PREOP JAHAIRA IV Miscellaneous Supplies 1 each 06/06/24 06:00 Iv Access IV 06/06/24 23:59 DIRECTED JAHAIRA Sodium Chloride 0 ml 06/06/24 06:00 Normal Saline Flush 10 Ml Syr IV 06/06/24 23:59 PRN PRN Sodium Chloride 0 ml 06/06/24 06:00 Normal Saline 10 Ml Vial IJ 06/06/24 23:59 DIRECTED PRN Sterile Water 0 ml 06/06/24 06:00 Water,Injection,Sterile 10 Ml Vial IJ 06/06/24 23:59 DIRECTED PRN PFSH Active Problems Active Problems: Problem Status Onset Code Screening for colon cancer Acute Z12.11 Primary osteoarthritis of right knee Acute M17.11 Primary osteoarthritis of left knee Acute M17.12 Loose bodies of knee involving multiple articular structures Acute M23.40 Knee pain, left Acute M25.562 Decreased hearing Acute H91.90 Fatigue Acute R53.83 Frequent falls Acute R29.6 Status post arthroscopy of right shoulder Acute 10/03/21 Z98.890 COVID-19 Acute U07.1 Bursitis of right shoulder Acute M75.51 Traumatic rupture of right proximal biceps tendon Acute ~06/2021 S46.211A Traumatic tear of right rotator cuff Acute ~06/2021 S46.011A Shingles Acute B02.9 Iron (Fe) deficiency anemia Acute D50.9 Chest wall deformity Acute M95.4 Palpitation Acute R00.2 Balance disorder Acute R26.89 Elevated serum creatinine Acute R79.89 Fatigue Acute R53.83 Skin lesion Acute L98.9 Rib pain on right side Acute R07.81 Abnormal cervical Papanicolaou smear Acute R87.619 Diabetes mellitus Chronic E11.9 Stress at home Chronic 06/09/16 F43.9 Spinal stenosis of lumbar region Chronic 09/18/14 M48.061 Primary adenocarcinoma of chest wall Chronic 02/12/17 C76.1 Peripheral neuropathy Chronic 05/14/14 G62.9 Migraine Chronic G43.909 Malignant neoplasm of female breast Chronic 06/23/10 C50.919 Lymph edema Chronic 07/15/15 I89.0 Increased body mass index Chronic R63.8 Essential hypertension Chronic 11/03/13 I10 Depressive disorder Chronic 08/26/93 F32.9 Asthma Chronic J45.909 Medical History Medical History Pharyngitis Closed fracture of one rib 08/26/97 Abnormal cervical Papanicolaou smear 09/27/99 Hypokalemia 07/22/17 Tension-type headache Polyp of colon (08/26/99) Anemia (09/06/17) secondary to heavy menses; s/p ablation 2003. Still persistent heavy menses Obesity, Class III, BMI 40-49.9 (morbid obesity) Diabetes Hx of malignant neoplasm of breast 2009 recurrance 2013 Palliative care patient Surgical History Surgical History Hx of hysterectomy 2011? History of colonoscopy (~11/2023) History of mastectomy (B) Status post colposcopy 09/27/99 knee repair (~08/2011) Tonsillectomy section Endometrial Ablation (~2003) Tooth extraction wisdom tooth Colonoscopy - IV Sedation (04/26/13) DR. RODAS Cervical Procedure (~1999) colposcopy Breast, Mastectomy right 2012- recurrent breast cancer- followed by chemotherapy Breast, Lumpectomy 2009- x3 to get clear margins followed by chemo and radiation Biopsy, Soft Tissue (02/12/17) right anterior chest wall mass at incision site, core biopsy = adenocarcinoma, invasive, ductal type, nuclear grade III Tobacco Smoking/Tobacco Use Status: Never Passive smoking exposure: Yes Second hand exposure: Yes Alcohol Alcohol Intake: former Substance Use Substance use: Occasionally Substance use type: marijuana Counseling provided: none Details: edibles Vital Signs and Lab Results Vital Signs Most Recent Vital Signs in EMR: Temp Pulse Resp BP Pulse Ox 36.6 C 75 16 126/64 98 06/06/24 06:24 06/06/24 06:24 06/06/24 06:24 06/06/24 06:24 06/06/24 06:24 Lab Results Blood Type / Crossmatch: No Data to Display Complete Blood Count: White Blood Count 10.14 10^3/uL (4.4-10.8) 05/25/24 11:20 Red Blood Count 4.69 10^6/uL (3.93-5.22) 05/25/24 11:20 Hemoglobin 13.8 g/dL (11.2-15.7) 05/25/24 11:20 Hematocrit 40.9 % (36.0-46.0) 05/25/24 11:20 Platelet Count 297 10^3/uL (130-400) 05/25/24 11:20 Complete Metabolic Panel: Sodium 141 mmol/L (136-145) 05/25/24 11:20 Potassium 3.4 mmol/L (3.5-5.1) L 05/25/24 11:20 Chloride 105 mmol/L (98-107) 05/25/24 11:20 Carbon Dioxide 28.0 mmol/L (21.0-32.0) 05/25/24 11:20 BUN 17 mg/dL (7-18) 05/25/24 11:20 Creatinine 0.9 mg/dL (0.55-1.02) 05/25/24 11:20 Est GFR (CKD-EPI 2020) 72.73 (mL/min/1.73m2) 05/25/24 11:20 Calcium 9.5 mg/dL (8.5-10.1) 05/25/24 11:20 Glucose 109 mg/dL (74-106) H 05/25/24 11:20 Liver Function Panel: No Data to Display Coagulation Panel: No Data to Display Cardiac Panel: No Data to Display Arterial Blood Gas: 2 No Data to Display Venous Blood Gas: No Data to Display Pancreas Panel: No Data to Display Thyroid Panel: No Data to Display Infectious Disease: No Data to Display Blood Cultures: No Data to Display Toxicology Panel: No Data to Display Imaging and Studies Imaging and Studies Study information below may be from another EMR and interpreted by another provider. Please see original notes in EMR for more complete details. Stress Test Summary: Date of Exam: 10/21/20Sex: F Admission Date: 10/21/20 : 1960 Age: 60 Exam: Exercise Treadmill Indications: Fatigue, chest pain. MPI Conclusion The ejection fraction was 65% with stress. There were no wall motion abnormalities. There was no evidence of ischemia on the imaging portion exam. This represents a normal SPECT stress test. Anesthesia Assessment and Plan Anesthesia History Personal History: Delayed Emergence Family History: No Family History of Anesthesia Complications Exercise Tolerance Exercise Tolerance: Metabolic Equivalents>4 Pertinent Negatives Pertinent Negatives: No Symptoms of GERD, No Major Cardiovascular Symptoms or Complaints, No Major Pulmonary Symptoms or Complaints and No History of CVA/TIA Cardiac & Pulmonary Exam Cardiac Exam: Normal S1/S2 Heart Sounds Pulmonary Exam: Clear Bilateral Breath Sounds and No cough or Cold Implantable Cardiac Device Does patient have a Pacemaker or an ICD?: No Airway Exam Known Difficult Airway: No Mallampati Class: 3 Mouth Opening: Normal (> 3cm) Thyromental Distance: Greater than 3 cm Neck Range of Motion: Full ROM Neck Circumference: Normal Teeth Condition: Normal Dentition (tooth 11 chip present since childhood ) ASA Classification ASA Score: ASA 3 Emergency Case?: No NPO Status NPO Status: NPO Clears >2 hours, Solids >8 hours Anesthesia Plan Resuscitation Status: Full Code Anesthesia Technique: General Anesthesia Airway Planned: Natural Airway Pain Management: Surgeon and patient request nerve block Monitors Used: Standard Monitors
[2024-06-06] MEDS: Gabapentin 300 MG CAP PO (06:34)
[2024-06-06] MEDS: Acetaminophen 500 MG TAB 1000 MG PO (06:34)
[2024-06-06] MEDS: Celecoxib 200 MG CAP 400 MG PO (06:35)
[2024-06-06] MEDS: Lactated Ringers 1,000 ML 80 ML IV (06:55)
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
[2024-06-06] MEDS: ceFAZolin 2 GM/50 ML BAG IVPB (07:36)
[2024-06-06] MEDS: TRANEXAMIC ACID/SOD. CHL. 1,000 MG/100 ML BAG 600 MG IVPB (07:54)
--- NOTE | 2024-06-06 08:03 | W.ANESNERVE ---
Nerve Block Single Injection Procedure Date and Time Date Performed: 06/06/24 Procedure Start: 07:10 Location Where Procedure Performed Procedure Location: Day Surgery Unit Reason Performed: Postoperative Analgesia Requesting Provider: Ameya Alexandre Timeout Performed Timeout Performed: Yes Monitoring Used ECG, Blood Pressure and SpO2 Sterility Sterility: Hand Hygiene, Surgical Cap, Surgical Mask, Sterile Gloves and Chlorhexidine Sedation Given During Procedure Sedation Given (Indicate Dose Given): Versed IV Dose:: 2mg Patient Mental Status Patient Mental Status: Sedate with meaningful communication Nerve Block 1st Nerve Block: Laterality: Right Block Type: Adductor Canal Ultrasound Image Saved?: Yes Needle / Catheter Used: 120mm SonoPlex II Local Anesthetic Bolus (Indicate Dose Given): Lidocaine used for local infiltration of skin, Injected in 3-5ml increments after negative blood aspiration and Bupivacaine 0.25% Dose:: 15ml Additives (Indicate Dose Given): None Ultrasound: Sterile probe cover and gel used Nerve Stimulator: Not Used Paresthesia: None Procedure Tolerated: No Complications and Patient tolerated well Procedure Outcome: Successful Performed By: Eric Tiwari Supervised By: Domenica Waggoner
--- NOTE | 2024-06-06 09:14 | ROE_ITS ---
Date of service: 06/06/24 Time of Service: 07:45 Operative Note Operative Note DATE OF PROCEDURE: 06/06/24 PRE-OP DIAGNOSIS: Right Knee Osteoarthritis POST-OP DIAGNOSIS: same PROCEDURE: Right Total Knee Replacement SURGEON: Ameya Alexandre HOUSEKEEPER/LAUNDRY ASSISTANT: Dunia Ramirez ANESTHESIA TYPE: Spinal Refer to Anesthesia Record ESTIMATED BLOOD LOSS: 100 PATHOLOGY: none sent TOURNIQUET TIME: 0 COMPLICATIONS: None Patient was transported to: PACU Patient's condition: stable Implants: 1. Depuy Attune Cementless Cruciate Retaining Femoral Component, Size 4 2. Depuy Attune Cementless Fixed Bearing Tibial Component, Size 4 3. Depuy Attune 4x8 CR/FB Poly 4. Depuy Attune Patellar Component, Size 35 Indications: I have seen Heena in clinic for symptoms of knee arthritis, confirmed with radiographic findings. She has exhausted nonoperative methods and was having significant limitations in daily function and desired better function and less pain. I discussed the technical details of a knee replacement. I explained the risks of the procedure to include, but not limited to, bleeding, infection, pain, stiffness, fracture, damage to nerves and vessels, damage to muscles and tendons, loosening, need for repeat procedure, blood clot and cardiopulmonary demise. Despite these risks, Heena elected to proceed. Findings: There was significant signs of arthritis throughout the knee involving all 3 compartments. Procedure Description: Heena was greeted in the preoperative holding area where the correct side was identified and marked. The consent was reviewed with the patient and signed. The history and physical was updated. All questions were answered. Preoperative medications were administered: Acetaminophen 1000mg, Celebrex 400mg, and Gabapentin 300mg. An adductor canal block was then administered by the anesthesia team in the PACU. She was taken back to the operating room. A spinal anesthestic was then administered. The patient was placed into the supine position on the operating room table. A nonsterile tourniquet was placed high onto the leg but only used for cementing. Posts were placed for positioning during the procedure. All bony prominences were well padded. Prophylactic antibiotics in the form of Cefazolin were administered. 1g of Tranxemic Acid was given intravenously within 30 minutes of incision. The right leg was then prepped with Chloraprep and draped in a standard fashion with impervious stockinette. A second prep with Chloraprep was performed prior to application of Iodine impregnated skin protection. A timeout to confirm correct identity, side and site, procedure, allergies, anesthesia, and medical concerns was performed. With the knee in some flexion, a midline incision was made overlying the knee. Full thickness skin flaps were raised once the extensor mechanism was encountered. These were raised medially and laterally. Any bleeding was controlled with electrocautery. Once the extensor mechanism was fully exposed, a medial parapatellar arthrotomy was performed in a flexed position. All bleeding from the arthrotomy and the geniculate arteries was coagulated. A medial subperiosteal peel was performed with electrocautery to the midcoronal plane. Due to the significant varus deformity the entire medial tibial plateau was exposed. The fat pad was removed while keeping the patellar tendon protected. The anterior distal femur synovium was removed for later visualization. The ACL and PCL were resected and the anterior horn of the lateral meniscus was transected. The knee was then flexed with the patella everted. Large osteophytes from the tibia were removed. Large osteophytes from the femur were removed. THere was also notable osteophyte around the superolateral patella. Using a step drill, and based on preoperative templating, the femoral canal was entered. This was done with a step drill without any difficulty. The intramedullary distal femoral cut guide was inserted, set to a 4 degree valgus cut and 8mm cut thickness. The distal femoral cut guide was then held in position and pinned. With the soft tissues protected, the distal cut was p erformed. This was passed over a few times to ensure a planar cut. I then turned attention to the tibia. The extramedullary guide was placed onto the leg. The distal aspect was slid medial to adjust for position of center of ankle and stay in line with shaft of the tibia. Approximately 3-5 degrees of posterior slope was kept in the proximal cutting guide. The center of the guide was aligned with the PCL. The stylus was used to assess cut thickness. The medial side, most involved side, was set for a 4mm cut. This was then held in position and pinned into place with 2 additional pins and a cross pin for stability. The medial and lateral collateral ligaments were protected and the cut was performed. With this completed, it was assessed and noted to be of appropriate dimensions. The guide was removed. A spacer block was inserted and the knee was brought into extension. The 8mm spacer block provided full extension, without hyperextension and with stability of both the medial and lateral collateral ligaments was assessed. The pins from the femur and the tibia were then removed. The distal femur was then sized. The anterior stylus was placed onto the lateral ridge of the anterior femur. This indicated a size 4 femur. The external rotation of the guide was adjusted to 5 degrees to match the epicondylar axis, perpendicular to [place]?s line. The 4-in-1 cutting guide was the placed. The posterior medial femur cut was evaluated and appeared of good thickness. The spacer block was inserted underneath the cutting guide and stability was confirmed in 90 degrees of flexion. An raciel wing was used to confirm appropriate position of the anterior cut to avoid notching. This cutting guide was ensured to be flush on the cut surface and then pinned into place with headed pins. While protecting the soft tissues, quad tendon, and collateral ligaments, the anterior and posterior cuts were performed with a saw. The central two pins were removed and the posterior and anterior chamfers were cut next. The notch-cutting guide was placed. This was pinned to lateralize the femoral component as much as possible while keeping it flush on the cut surface. This w as then pinned into position. A reciprocating saw was used to make the notch cut. A rasp smoothed the cut surfaces. The medial and lateral menisci were removed. A trial femoral component was then inserted, impacted down to the cut surfaces, and the lug holes were drilled. A provisional trial tibial component was placed and the knee was brought through range of motion. There was noted to be excellent extension and flexion. There was no significant instability. The patella was tracking without thumbs. A size 8mm polyethylene component provided the best range of motion and stability with less than 2mm gapping with medial and lateral stress and full extension without significant hyperextension. The tibial cut surface was fully exposed. The tibia was then sized as a 4. The tibia had been previously marked during trialing to correspond to the center of the tibial component to help with rotation. The trial was aligned to this [place], approximately rotated to the medial 1/3rd of the tibial tubercle. The trial was pinned into place. The tibia was prepared with a reamer and a keel punch and lug holes. The knee was then brought into extension and the patella was measured as 21mm. Using the patellar clamp and cut guide, this was resected to a flat surface with at least 13mm of thickness remaining. The size 35 patella fit the best. This was oriented and then clamped into position. The lugs were drilled. The trial components were removed. The final components were opened on the back table. The periosteal and capsular tissues, especially posteriorly, around the knee were then systematically injected with a periarticular cocktail consisting of 246mg of Ropivacaine, 0.5mg of Epinephrine, 0.08mg of Clonidine, and 30mg of Ketorolac, diluted to 100cc. On the back table, with the implants opened, the cement was mixed. One batch of high viscosity cement was prepared with vacuum assistance. After the cement was ready a small amount was placed on the cut surface of the patella and the patellar button was clamped into position and held. While the cement was hardening, the cementless knee components were placed. Starting with the tibial component, the tibia was subluxed anteriorly and the lug holes of the component were lined up. The tibia was then impacted with an impactor and mallet until the tibial component was in contact with the tibia. The final polyethylene component was inserted. Then, the femoral component was inserted. The lug holes were aligned and the component was impacted into position. The knee was irrigated with Surgiphor Betadine solution. This was allowed to sit in the knee for 3 minutes and then it was irrigated out with saline. After the cement had finally cured, approximately 15min, the clamp was removed from the patella and the knee was taken through range of motion. The patella was tracking with a no-thumbs technique. The capsule was then reapproximated with a No. 1 Vicryl at multiple locations. The capsule was finally closed with a No. 2 Stratafix, barbed suture. The second dosing of 1g TXA was started. Deep tissues were then reapproximated with 0 Vicryl and 2-0 Vicryl. The skin was closed with a running 3-0 Monocryl in a subcuticular fashion. This was reinforced with skin glue. A Mepilex silver dressing was applied along with a [id number] TALIA wrap. A CryoCuff was applied. Heena was transferred to the hospital bed without difficulty an suffering no apparent complication. Heena has a good prognosis. Physical therapy will start today and without restrictions, weight-bearing as tolerated. Aspirin 81mg BID will be used for DVT prophylaxis.
[2024-06-06] MEDS: fentaNYL 100 MCG/2 ML VIAL IVP ×2 (09:48→09:58)
[2024-06-06] MEDS: Droperidol 5 MG/2 ML VIAL 0.625 MG IVP (10:08)
[2024-06-06] MEDS: oxyCODONE 5 MG TAB PO (11:01)
--- NOTE | 2024-06-06 13:00 | W.ANESPOSTOP ---
Postoperative Evaluation Date, Time and Location Date Performed: 06/06/24 Time Performed: 13:00 Patient Location: Day Surgery Unit Vital Signs Most Recent Imported Vital Signs: Most Recent Vital Signs Temp Pulse Resp BP Pulse Ox 36.2 C L 66 16 103/49 L 100 06/06/24 12:08 06/06/24 12:08 06/06/24 12:08 06/06/24 12:08 06/06/24 12:08 Pain Score Most Recent Pain Score: Most Recent Pain Score Pain Level 4 06/06/24 12:08 Assessment Mental Status: Awake (Alert & Oriented to Patient Baseline) Airway and Respiratory Function: Patent airway with normal (patient baseline) respiratory exam Cardiovascular Function: Hemodynamically Stable Hydration Status: Adequately Hydrated Nausea & Vomiting: No Nausea or Vomiting Pain: Pain is tolerable per patient Peripheral Nerve Block: Regional nerve block not resolved at time of post operative discharge Teaching Patient Teaching: Discussed Safe Use of Pain Medication Given Recent Anesthesia
--- NOTE | 2024-06-06 15:18 | PT.INIE ---
PT Notes Visit Reasons: Right knee DJD Physical Therapy Day Surgery Initial Evaluation Date: 06/06/2024 Referring Doctor: Dr. Alexandre PT Orders: PT CONSULT: PT assessment status post Ortho surgery Precautions: Activity as tolerated Patient Profile/Admitting Diagnosis: Patient is 63-year-old female presenting status post elective right TKA by Dr. Alexandre on 06/06/2024. Postop uncomplicated PMHX: Screening for colon cancer (Acute) Primary osteoarthritis of right knee (Acute) DEPO MEDROL 01/20/24Primary osteoarthritis of left knee (Acute) DEPO MEDROL 01/20/24Loose bodies of knee involving multiple articular structures (Acute) Knee pain, left (Acute) Decreased hearing (Acute) Fatigue (Acute) Frequent falls (Acute) Status post arthroscopy of right shoulder (Acute 10/03/21) COVID-19 (Acute) 10/22/21Bursitis of right shoulder (Acute) Traumatic rupture of right proximal biceps tendon (Acute ~06/2021) Traumatic tear of right rotator cuff (Acute ~06/2021) Shingles (Acute) Iron (Fe) deficiency anemia (Acute) Chest wall deformity (Acute) Palpitation (Acute) Balance disorder (Acute) Elevated serum creatinine (Acute) Fatigue (Acute) Skin lesion (Acute) Rib pain on right side (Acute) rib fx per ctAbnormal cervical Papanicolaou smear (Acute) Diabetes mellitus (Chronic) Stress at home (Chronic 06/09/16) Spinal stenosis of lumbar region (Chronic 09/18/14) mri 09/09 - no metastasis seen multi level moderate to severe spinal stenosis and foraminal encroachment ; epidural and neurosurgical consult in the works 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 secondary to breast chemo Migraine (Chronic) Malignant neoplasm of female breast (Chronic 06/23/10) recurrent 09/08 plan double mastectomy S/P surgery, radiation and chemo bone scan scheduled 09/09 - hip pain ? 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) Increased body mass index (Chronic) Essential hypertension (Chronic 11/03/13) Depressive disorder (Chronic 08/26/93) Asthma (Chronic) Medical History Pharyngitis Closed fracture of one rib 08/26/97Abnormal cervical Papanicolaou smear 09/27/99Hypokalemia 07/22/17Tension-type headache Polyp of colon (08/26/99) Anemia (09/06/17) secondary to heavy menses; s/p ablation 2003. Still persistent heavy mensesObesity, Class III, BMI 40-49.9 (morbid obesity) Diabetes Hx of malignant neoplasm of breast 2009 recurrance 2013Palliative care patient Surgical History Hx of hysterectomy 2011?History of colonoscopy (~11/2023) History of mastectomy (B)Status post colposcopy 09/27/99knee repair (~08/2011) Tonsillectomy section Endometrial Ablation (~2003) Tooth extraction wisdom toothColonoscopy - IV Sedation (04/26/13) DR. THOMPSONENCervical Procedure (~1999) colposcopyBreast, Mastectomy right 2012- recurrent breast cancer- followed by chemotherapyBreast, Lumpectomy 2009- x3 to get clear margins followed by chemo and radiationBiopsy, Soft Tissue (02/12/17) right anterior chest wall mass at incision site, core biopsy = adenocarcinoma, invasive, ductal type, nuclear grade III Social History/Home Situation: Patient resides in two-story home with 14 stairs and 1 railing to her only bathroom. She lives with her 2 sons. She reports she will be staying at [facility] for approximately 1 week due to the stairs within her home and allow her to recover without having to do them. She reports being independent ambulation ADLs cooking home management. She drives and does shopping. Equipment Owned/DME: None Subjective: Patient reports her thigh is sore and feels like her quad is tight. Objective: [] General Observation: Alert female semireclined in stretcher denies nausea lightheadedness. Patient agreeable to participate in assessment Mental Status: Alert and oriented x 4 Pain: Right knee 3/10 ROM: [] Right Upper Extremity: WNL Left Upper Extremity: WNL Right Lower Extremity: WNL except knee 0-92 degrees limited by Wyatt wrap and soft tissue approximation Left Lower Extremity: WNL Strength: [] Right Upper Extremity: 5/5 Left Upper Extremity: 5/5 Right Lower Extremity: Hip flexion 3?/5, hip abduction 3/5, hip extension 3/5, knee extension 3/5, knee flexion 2+/5, ankle 3/5 Patient demonstrates no lag during short range SLR. Patient demonstrates strong quad set in supine Left Lower Extremity: 5 out of 5 Sensation: Intact; denies paresthesias to right lower extremity at this time Bed Mobility/Transfers: Supine to sit supervision Sit to stand supervision Stand to sit supervision with FWW Bed to chair supervision with FWW Gait: Patient ambulated 100 feet with FWW with supervision. Gait deviations including step to pattern decreased step length on right decreased step height on right impaired right knee flexion during swing phase, circumduction right lower extremity and excessive weightbearing through upper extremities to unweight right lower extremity Stairs: 2 steps x 2 with bilateral rails contact-guard assist step to pattern Balance: [] Static Sitting: Normal Dynamic Sitting: Normal Static Standing: Good with FWW Dynamic Standing: Fair plus with FWW Special Tests: [] Mobility Limitations Standardized Measure [] [facility] 6 clicks Basic Mobility Inpatient Short Form: [] Raw Score: 21 CMS Score:28.97% disability Informed Consent/Education: Patient instructed in purpose of PT consult. Packet containing TKA to exercise protocol has been given to patient. Education and training on initial set of exercises that can be done at home have been completed with patient. Assessment: Patient presents with clinical signs and symptoms consistent with current/admitting diagnoses that have resulted to mobility limitations, gait instability, generalized weakness, and impairment of motor control as demonstrated by the following impairment level findings: 1. Decreased strength to right knee major muscle groups 2. Impaired standing balance 3. Limitation of joint range of motion in right knee Impairments are contributing to the following functional limitations: 1. Inability to safely ambulate without assistive device 2. Increase completion time for mobility ADL performance 3. Increased fall risk Patient is assessed as a moderate complexity based on the following: History: 63-year-old female with impairment level findings, functional limitations, and past medical history as indicated above Examination: Demonstrable impairment in strength, balance, and mobility level with underlying impairments and functional limitations as documented above Presentation: Stable Decision Making: Moderate Goals: N/A. Plan of Care/Treatment Plan: N/A. DISCHARGE RECOMMENDATIONS: Home with outpatient PT as scheduled TREATMENT CODE/TIME: 12726, 13346/1230- 13 9 05 Thank you for the opportunity to participate in the care of this patient. Please sign an return this page within 30 days if you agree with the above POC. Thank you! Physician Signature Date [facility]
== END 2024-06-06 13:10 | disposition home or self-care (01) ==
PROVIDERS: PCP Family Medicine; Visit Provider Student in an Organized Health Care Education/Training Program
PROC: (CPT 27447; principal; 2024-06-06 07:30)
DX: M17.11 Unilateral primary osteoarthritis, right knee (principal); E11.9 Type 2 diabetes mellitus without complications; I10 Essential (primary) hypertension; E66.9 Obesity, unspecified; Z85.3 Personal history of malignant neoplasm of breast
CPT/HCPCS: 27447; 76942; 97162; 97530; C1776; J0665; J0690; J1100; J1790; J2001; J2250; J2401; J2405; J2704; J3010

== ENCOUNTER 2024-06-11 05:45 | Emergency (ER) | payer MEDICARE, BC, SELFPAY ==
[2024-06-11] VITALS (8 sets, daily range): BP systolic 118–128; BP diastolic 49–70; PULSE 70–75; RESP 16–18; TEMP 36.5–36.7; O2SAT 97–100
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
--- NOTE | 2024-06-11 06:29 | DI.RAD_ITS ---
Exam(s) XR KNEE RT 3V AP,LAT,BLAISE EXAM: XR KNEE RT 3V AP,LAT,BLAISE CLINICAL HISTORY: recent replacement, crunching tonight with twist. TECHNIQUE: 2D digital imaging was performed. Three views. COMPARISON: CR XR KNEE RT 3V AP,LAT,BLAISE from 01/22/2023 FINDINGS: BONES: No acute fracture is present. No bony destructive lesion is seen. Total knee prosthesis. JOINTS: The knee is normally aligned. No joint effusion is seen. SOFT TISSUE: Swelling IMPRESSION: Total knee prosthesis. No acute bony abnormality. DATA REPOSITORY: RADIATION DOSE DELIVERED:
--- NOTE | 2024-06-11 07:37 | W.EDPROG ---
Date of service: 06/11/24 Time of Service: 07:38 Medical Decision Making In brief, this is a 63-year-old female patient who underwent total right knee replacement on 06/06/2024, who had a sudden onset of pain after rolling over in bed at 10 PM last night. At the time that I took over her care, her disposition was pending final read of an x-ray obtained of the right knee, and orthopedics consult with her surgeon. I independently interpreted the x-ray and did not note any disruption of hardware, periprosthetic fracture, or other abnormalities. The prior provider's examination was less concerning for infection or DVT. She is neuro intact but continuing to have pain. I discussed the patient's case with Dr. Alexandre, who independently interpreted the x-rays and felt that they looked reassuring. He recommended multimodal pain management, as this likely represents a disruption or tear of scar tissue. The patient requested that I avoid starting an IV, and for this reason she was provided with intramuscular Toradol, oxycodone, and Tylenol. -On reassessment, the patient has had some improvement in her pain, but remains quite tearful and uncomfortable. I did provide her with an oral dose of Valium for muscle relaxation as well as forts antianxiety properties. The patient noted marked improvement after this medication, we did discuss continuing her multimodal pain management, with a plan to increase her oxycodone for the next day to 3 days to 10 mg every 4 hours as needed. The patient will attempt to obtain a commode, to ensure that she is most comfortable and able to manage in the home environment. She herself is desiring of discharge, has outpatient family supports, and I do believe she will be successful in the outpatient environment with ongoing pain management. Dr. Alexandre was made aware of these changes and is in agreement with this plan. At this time, the patient has had a full medical evaluation and is safe for discharge to home. They are hemodynamically stable, ambulatory, and tolerating PO. They are understanding of the follow-up plan and return precautions. They left our facility without incident. Glenna Johansen MD Medical Records Medical records reviewed: Yes I reviewed the patient's medical records. Quality:[facility] Health Related Social Needs: No Data to Display Sign Out Sign Out Data: Sign Out Comment: Recent right total knee replacement, pain in knee with twisting this morning. Pending x-ray results and recommend Ortho consult with Dr. Alexandre. Last updated by Giovanny Lino DO at 06/11/24 07:19 Discharge Plan Disposition Patient Disposition: Home Discharge Details Clinical Impression: Acute knee pain, History of total right knee replacement, Asthma, Essential hypertension, Diabetes mellitus Primary Care Provider: Smita Quintero ED Provider: Glenna Johansen Home Meds and New Rx's Prescriptions: No Action tirzepatide (weight loss) 7.5 mg/0.5 mL pen injector 7.5 mg subcut QWEEK Qty: 8 6RF albuterol sulfate 90 mcg/actuation HFA aerosol inhaler 1 - 2 puff Inhalation Q6H PRN Qty: 8.5 12RF Patient Comments: used a bout a year ago hydrochlorothiazide 12.5 mg tablet 12.5 mg PO DAILY Qty: 90 12RF losartan 25 mg tablet 25 mg PO DAILY Qty: 90 5RF potassium chloride 20 mEq tablet extended release 20 meq PO DAILY Qty: 90 5RF oxycodone 5 mg tablet 5 mg PO Q4H MDD 30 mg PRN (Reason: pain) Qty: 18 0RF Rx Instructions: Take one tablet up to every 4 hours as needed for severe postoperative pain celecoxib [Celebrex] 200 mg capsule 200 mg PO BID PRNQty: 60 0RF Rx Instructions: Take one tablet twice daily for pain and inflammation aspirin 81 mg tablet,delayed release (DR/EC) 81 mg PO BID 30 Days Qty: 60 0RF acetaminophen 500 mg tablet 1,000 mg PO Q8H PRN Qty: 90 0RF Rx Instructions: Take two tablets up to every 8 hours as needed for pain pantoprazole 40 mg tablet,delayed release (DR/EC) 40 mg PO DAILY Qty: 14 0RF docusate sodium [Colace] 100 mg capsule 100 mg PO BID Qty: 30 0RF gabapentin 300 mg capsule 300 mg PO QHS Qty: 14 0RF Rx Instructions: Take one tablet at bedtime Discharge Instructions Instructions: Total Knee Replacement (DC), Oxycodone Additional Instructions: You were seen in the emergency department today for evaluation of knee pain after recent knee replacement. In our department you had a full physical examination performed, and an x-ray was taken that did not show any abnormalities. I did discuss your situation with Dr. Alexandre, we optimized your pain management here in the emergency department and recommend that you continue multimodal pain management at home, though for the next few days you may need to increase your oxycodone to 10 mg every 4 hours as needed. You likely disrupted a section of scar tissue, and should take it easy at home for the next few days as your pain improves. Please reach out to Dr. Alexnadre with any concerns, and you can always return to the emergency department if needed for sudden or severe change or worsening of your pain, swelling of 1 leg, weakness, numbness, or any other symptoms that cause you concern. Thank you for allowing us to be part of your care.
[2024-06-11] MEDS: oxyCODONE 10 MG TAB PO (07:54)
[2024-06-11] MEDS: Acetaminophen 500 MG TAB 1000 MG PO (07:55)
[2024-06-11] MEDS: Ketorolac 15 MG/ML VIAL IM (07:56)
[2024-06-11] MEDS: diazePAM 5 MG TAB PO (08:30)
--- NOTE | 2024-06-11 08:58 | DI.VRAD_ITS ---
PROCEDURE INFORMATION: Exam: XR Right Knee Exam date and time: 06/11/2024 6:09 AM Age: 63 years old Clinical indication: Pain; Right; Prior surgery; Surgery date: 3-7 days post-operative; Surgery type: Total knee replacement; Patient HX: Recent replacement, crunching tonight with twist TECHNIQUE: Imaging protocol: Radiologic exam of the right knee. Views: 3 views. COMPARISON: CR XR KNEE RT 3V AP,LAT,BLAISE 01/22/2023 10:04 AM FINDINGS: Bones/joints: Total knee replacement without evidence of complication. There is no evidence of acute fracture.There is no evidence of malalignment or dislocation. Soft tissues: Soft tissue swelling of the knee. IMPRESSION: 1. Total knee replacement without evidence of complication. 2. Soft tissue swelling of the knee. 3. There is no evidence of acute fracture.There is no evidence of malalignment or dislocation. Dictated and Authenticated by: Celeste Bolanos MD. Ordering:ARRON Baltazar MD
[2024-06-11] MEDS: oxyCODONE 10 MG TAB 40 MG PO (09:17)
== END 2024-06-11 09:18 | disposition home or self-care (01) ==
PROVIDERS: Emergency Provider Emergency Medicine; PCP Family Medicine
DX: M25.561 Pain in right knee (principal); Z96.651 Presence of right artificial knee joint
CPT/HCPCS: 00123; 73562; 96372; 99284; 99283; J1885

== ENCOUNTER 2024-06-16 15:19 | Outpatient (REF) | payer MEDICARE, BC, SELFPAY ==
[2024-06-16 14:13] LABS: Bilirubin Small (Negative); Blood Negative (Negative); Clarity Sl Cloudy (Clear); Glucose Negative (Negative); Ketones Trace mg/dL (Negative); Leukocyte Esterase Negative (Negative); Nitrite Negative (Negative); Specific Gravity 1.025 (1.005-1.025); pH 5.5 (5-8)
== END 2024-06-16 15:20 | disposition home or self-care (01) ==
LOC: LBN 15:19
PROVIDERS: PCP Family Medicine; Visit Provider Family Medicine
DX: R31.9 Hematuria, unspecified (principal)
CPT/HCPCS: 81003

== ENCOUNTER 2024-06-19 10:39 | Outpatient (CLI) | payer MEDICARE, BC, SELFPAY ==
--- NOTE | 2024-06-19 10:15 | DI.RAD_ITS ---
Exam(s) XR KNEE RT 1V XR STANDING ALIGNMENT EXAM: XR STANDING ALIGNMENT and XR knee RT 1 V CLINICAL HISTORY: 1ST POST OP S/P R TKA. TECHNIQUE: 2D digital imaging was performed. Five images were obtained. COMPARISON: CR XR STANDING ALIGNMENT from 05/25/2024 CR,XR XR KNEE RT 3V AP,LAT,BLAISE from 06/11/2024 FINDINGS: BONES: The hips are well maintained. There are stable postsurgical changes of a right total knee rep lacement. The orthopedic hardware appears in good position. No suspicious lucencies are seen around the orthopedic hardware. There is moderate arthrosis of the left knee characterized by joint space narrowing and osteophytes. The findings are most marked in the medial femoral tibial joint. The ank les are well maintained.There is no significant leg length discrepancy. SOFT TISSUE: Normal. IMPRESSION: 1. Stable right total knee replacement. 2. Moderate arthrosis of the left knee. DATA REPOSITORY: RADIATION DOSE DELIVERED:
== END 2024-06-19 10:40 | disposition home or self-care (01) ==
LOC: DIORS 10:39
PROVIDERS: PCP Family Medicine; Referring Provider Family Medicine; Visit Provider Physician Assistant
DX: Z96.651 Presence of right artificial knee joint (principal); Z47.1 Aftercare following joint replacement surgery
CPT/HCPCS: 73560; 77073

== ENCOUNTER 2024-06-26 15:56 | Outpatient (REF) | payer MEDICARE, BC, SELFPAY ==
[2024-06-26 13:39] LABS: Bilirubin Negative (Negative); Blood Negative (Negative); Clarity Clear (Clear); Glucose Negative (Negative); Ketones Negative (Negative); Leukocyte Esterase Negative (Negative); Nitrite Negative (Negative); Specific Gravity 1.025 (1.005-1.025)
== END 2024-06-26 15:57 | disposition home or self-care (01) ==
LOC: LBN 15:56
PROVIDERS: PCP Family Medicine; Visit Provider Family Medicine
DX: R82.90 Unspecified abnormal findings in urine (principal)
CPT/HCPCS: 81003

== ENCOUNTER → 2024-07-17 11:12 | Outpatient (BNVA) | payer MEDICARE, BC, SELFPAY | PROVIDERS: PCP Family Medicine; Referring Provider Family Medicine; Visit Provider Student in an Organized Health Care Education/Training Program | DX: Z47.1 Aftercare following joint replacement surgery (principal); Z96.651 Presence of right artificial knee joint | CPT/HCPCS: 99024 ==

== ENCOUNTER 2024-07-18 18:00 | Outpatient (REF) | payer MEDICARE, BC, SELFPAY ==
[2024-07-18 14:09] LABS: COMMENT (LAB VIEW ONLY) 138.54 mg/dL; Microalb ug/mg Crea 26.3 ug/mg Cr
== END 2024-07-18 18:01 ==
LOC: LBN 18:00
PROVIDERS: PCP Family Medicine; Visit Provider Family Medicine
DX: E11.9 Type 2 diabetes mellitus without complications (principal)
CPT/HCPCS: 82043; 82570

== ENCOUNTER → 2024-08-14 10:20 | Outpatient (BNVA) | payer MEDICARE, BC, SELFPAY | PROVIDERS: PCP Family Medicine; Referring Provider Family Medicine | DX: Z47.1 Aftercare following joint replacement surgery (principal); Z96.651 Presence of right artificial knee joint | CPT/HCPCS: 99024 ==

== ENCOUNTER → 2024-09-11 09:52 | Outpatient (BNVA) | payer MEDICARE, BC, SELFPAY | PROVIDERS: PCP Family Medicine; Referring Provider Family Medicine | DX: Z47.1 Aftercare following joint replacement surgery (principal); M17.12 Unilateral primary osteoarthritis, left knee; Z96.651 Presence of right artificial knee joint | CPT/HCPCS: 99024 ==

== ENCOUNTER → 2024-10-23 10:56 | Outpatient (BNVA) | payer MEDICARE, BC, SELFPAY | PROVIDERS: PCP Family Medicine; Referring Provider Family Medicine; Visit Provider Student in an Organized Health Care Education/Training Program | DX: S80.01XA Contusion of right knee, initial encounter (principal); W50.0XXA Accidental hit or strike by another person, initial encounter; Z96.651 Presence of right artificial knee joint | CPT/HCPCS: 99213 ==

== ENCOUNTER 2024-11-24 19:20 | Emergency (ER) | payer MEDICARE, BC, SELFPAY ==
[2024-11-24] VITALS (14 sets, daily range): BP systolic 126–149; BP diastolic 62–96; PULSE 60–74; RESP 14–21; O2SAT 96–100
--- NOTE | 2024-11-24 19:15 | RT.EKG_ITS ---
APPROVED REPORT Exam: Resting ECG Reason for Exam: dehydration Patient Location: E HR:69 bpm ECG Measurements Heart Rate 69 AXIS WA 209 P 12 QRSd 87 QRS 22 QT 430 T 58 QTc 462 Conclusion Sinus rhythm, rate 69 No interval abnormalities No STEMI No priors available for comparison
[2024-11-24] MEDS: Famotidine 20 MG/2 ML VIAL IVP (19:47)
[2024-11-24] MEDS: Ondansetron 4 MG/2 ML VIAL IVP (19:47)
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
[2024-11-24] MEDS: diphenhydrAMINE 50 MG/ML VIAL 25 MG IVP (19:52)
[2024-11-24] MEDS: Normal Saline 1,000 ML 1000 ML IV (19:52)
[2024-11-24 19:57] LABS: Abs Immature Grans 0.03 10^3/uL (0.0-0.06); Absolute Basophil Count 0.02 10^3/uL (0.0-0.2); Absolute Eosinophil Count 0.08 10^3/uL (0.0-0.7); Absolute Lymphocyte Count 2.59 10^3/uL (1.2-3.4); Absolute Monocyte Count 0.35 10^3/uL (0.1-0.8); Absolute Neutrophil Count 5.37 10^3/uL (1.2-6.7); Basophils % 0.2 %; Eosinophils % 0.9 %; HCT 41.1 % (36.0-46.0); HGB 13.9 g/dL (11.2-15.7); Immature Grans % 0.4 %; Lymphocytes % 30.7 %; MCH 29.2 pg (27.0-33.0); MCHC 33.8 % (32.0-36.0); MCV 86 fL (80-95); Monocytes % 4.1 %; Neutrophils % 63.7 %; RBC 4.76 10^6/uL (3.93-5.22); RDW 13.4 % (11.7-14.6); RDW-SD 42.6 fL; WBC 8.44 10^3/uL (4.4-10.8)
[2024-11-24 20:11] LABS: ALT 30 U/L (14-59); AST 30 U/L (15-37); Albumin 3.6 g/dL (3.4-5.0); Alkaline Phosphatase 108 U/L (46-116); Anion Gap 11.2 mmol/L (3-11); BUN 19 mg/dL (7-18); CO2 25.8 mmol/L (21.0-32.0); CREATININE 0.8 mg/dL (0.55-1.02); Calcium 9.8 mg/dL (8.5-10.1); Chloride 105 mmol/L (98-107); Estimated GFR 83.26 (mL/min/1.73m2); Glucose 105 mg/dL (74-106); Lipase 53 U/L (<78); Potassium 3.4 mmol/L (3.5-5.1); Sodium 142 mmol/L (136-145); Total Protein 7.3 g/dL (6.4-8.2)
[2024-11-24 20:15] LABS: Diff Comment PLT Morph Reviewed; RBC Morphology Normal
[2024-11-24] MEDS: Omnipaque 350 MG/ML 100 ML BTL 75 ML IJ ×2 (20:27→21:10)
[2024-11-24] MEDS: Normal Saline - Diluent 50 ML VIAL IJ ×2 (20:28→21:11)
--- NOTE | 2024-11-24 20:28 | DI.CT_ITS ---
Exam(s) CT ABDOMEN PELVIS W EXAM: CT ABDOMEN PELVIS W CLINICAL HISTORY: intractable n/v, GLP-1 use, h/o breast CA. TECHNIQUE: Imaging Protocol: Axial computed tomography images with coronal and sagittal reformatted images were created and reviewed CONTRAST MATERIAL: Intravenous: Omnipaque 350 Contrast volume:75 ml Oral: no COMPARISON: CT CT CHEST/ABD/PEL W from 10/23/2020 FINDINGS: ABDOMEN and PELVIS: Lung Bases: No acute findings. Moderate-sized hiatal hernia. Liver: Normal density. No suspicious mass. Gallbladder and biliary tract: No radiodense calculus. No wall thickening or pericholecystic fluid. No biliary dilation. Pancreas: Normal density. No abnormal calcifications or inflammatory process. No evidence of mass. Spleen: Normal. Kidneys: Normal size, contour and axis. No radiodense stones. No obstructive uropathy. No suspicious masses seen. Adrenal glands: No masses seen. Vasculature: Abdominal aorta non-dilated. Soft tissues: Small fat containing umbilical hernia. Bladder: No gross wall thickening. No calculi.No focal mass. Bowel: No obstruction. No bowel wall thickening. Appendix is not seen. No right lower quadrant inf lammation.. Moderate quantity of stool. Peritoneal cavity: No ascites. No focal collection. No mesenteric inflammatory response. No free air . Bones: Degenerative changes in the spine. No visible suspicious lesions. Reproductive organs: Hysterectomy. Lymph nodes: No pathologically enlarged lymph nodes. IMPRESSION:: No acute abnormality in the abdomen or pelvis. RADIATION DOSE DELIVERED: Total DLP DATA REPOSITORY: All CT scans at this facility are submitted to the National Radiology Data Registry (NRDR) Dose Index Registry (DIR) with the [employer] (ACR). RADIATION OPTIMIZATION: All CT scans at this facility use at least one of these dose optimization te chniques: automated exposure control; mA and/or kV adjustment per patient size (includes targeted exa ms where dose is matched to clinical indication); or iterative reconstruction.
[2024-11-24 20:40] LABS: Troponin I 5 ng/L (<or=51)
--- NOTE | 2024-11-24 20:56 | DI.VRAD_ITS ---
PROCEDURE INFORMATION: Exam: CT Abdomen And Pelvis With Contrast Exam date and time: 11/24/2024 8:14 PM Age: 64 years old Clinical indication: Nausea and vomiting; Intractable n/v, glp-1 use, h/o breast CA TECHNIQUE: Imaging protocol: Computed tomography of the abdomen and pelvis with contrast. Radiation optimization: All CT scans at this facility use at least one of these dose optimization techniques: automated exposure control; mA and/or kV adjustment per patient size (includes targeted exams where dose is matched to clinical indication); or iterative reconstruction. Contrast material: [id number]; Contrast volume: 75 ml; Contrast route: INTRAVENOUS (IV); COMPARISON: CT CHEST/ABD/PEL W 10/23/2020 8:38 PM FINDINGS: Lungs: Lung bases are unremarkable. Diaphragm: Large hiatal hernia. Liver: The liver is unremarkable. Gallbladder and biliary ducts: No gallstones. Nondistended. No wall thickening. Pancreas: The pancreas is unremarkable. Spleen: No splenomegaly. No lesions. Adrenal glands: The adrenal glands are unremarkable. Kidneys and ureters: The kidneys are normal. Stomach and bowel: Moderate stool throughout the colon and rectum. Appendix: Appendix is not seen but there is no pericecal inflammatory change. Intraperitoneal space: Unremarkable. No free air. No significant fluid collection. Vasculature: Patent vessels without evidence of aneurysm, dissection, occlusion or critical stenosis. Lymph nodes: No mesentery adenopathy. No edema. Urinary bladder: No focal wall thickening of the urinary bladder. Reproductive: Unremarkable as visualized. Bones/joints: The lumbar spine demonstrates moderate degenerative changes at multiple levels. Soft tissues: Small fat containing umbilical hernia. Soft tissues are unremarkable as visualized. IMPRESSION: No acute findings. Dictated and Authenticated by: Noreen Richardson MD. Orderin Eyal Murcia MD
--- NOTE | 2024-11-24 21:18 | DI.CT_ITS ---
Exam(s) CT BRAIN NECK CTA EXAM: CT BRAIN NECK CTA CLINICAL HISTORY: MANZANARES, vertigo, hx cancer. TECHNIQUE: Imaging Protocol: Axial CT angiography was performed with multi-slice acquisition and mu lti-planar and MIP reconstructions. CONTRAST MATERIAL: Intravenous: Omnipaque 350 Contrast volume:70 ml COMPARISON: CT CT HEAD WO from 05/14/2023 FINDINGS: CT Head W/O and W contrast: Ventricles and Extra axial spaces: Normal in size and morphology for the patient's age. Hemorrhage: None. Cerebral parenchyma: No evidence of acute infarct or mass. Midline shift: None. Brainstem/Cerebellum: No acute findings.. Calvarium: Normal. Visualized Paranasal sinuses/Mastoids: Clear. Soft Tissues: Unremarkable. Enhancement: Normal. CTA Brain W: Internal Carotid Arteries: Petrous: Normal. Cavernous: Normal. Cerebral: Normal. Middle Cerebral Arteries: Right: No aneurysm, occlusion or significant stenosis. Left: No aneurysm, occlusion or significant stenosis. Anterior Cerebral Arteries: Right: No aneurysm, occlusion or significant stenosis. Left: No aneurysm, occlusion or significant stenosis. Posterior cerebral Arteries: Right: No aneurysm, occlusion or significant stenosis. Left: No aneurysm, occlusion or significant stenosis. Vertebral Arteries: Right: No aneurysm, occlusion or significant stenosis. Left: No aneurysm, occlusion or significant stenosis. Basilar Artery: No aneurysm, occlusion or significant stenosis. CTA Neck W: Common Carotid: Right: No dissection, occlusion or significant stenosis. Left: No dissection, occlusion or significant stenosis. External Carotid: Right: No dissection, occlusion or significant stenosis. Left: No dissection, occlusion or significant stenosis. Internal Carotid: Right: No dissection, occlusion or significant stenosis. Left: Tiny calcific plaque proximally. No dissection, occlusion or significant stenosis. Vertebral Artery: Right: No dissection, occlusion or significant stenosis. Left: No dissection, occlusion or significant stenosis. Lung Apices: Scarring anterior left upper lobe. Bones: No acute abnormality. Degenerative changes in the cervical spine. Soft Tissues: Normal. IMPRESSION: 1. CTA brain: Normal CTA examination of the [place] of [place]. 2. Head CT: Unremarkable CT Head. 3. CTA neck: Tiny focus of calcific plaque proximal left internal carotid artery. The exam is otherw ise within normal limits. RADIATION DOSE DELIVERED: Total DLP DATA REPOSITORY: All CT scans at this facility are submitted to the National Radiology Data Registry (NRDR) Dose Index Registry (DIR) with the [employer] ([employer]). RADIATION OPTIMIZATION: All CT scans at this facility use at least one of these dose optimization te chniques: automated exposure control; mA and/or kV adjustment per patient size (includes targeted exa ms where dose is matched to clinical indication); or iterative reconstruction.
[2024-11-24 21:37] LABS: Lab Add On Test DONE
--- NOTE | 2024-11-24 22:07 | DI.VRAD_ITS ---
PROCEDURE INFORMATION: Exam: CTA Head Without And With Contrast, Arteriography Exam date and time: 11/24/2024 9:07 PM Age: 64 years old Clinical indication: MANZANARES, vertigo, HX breast cancer TECHNIQUE: Imaging protocol: Computed tomographic angiography of the head without and with contrast. Exam focused on the arteries. 3D rendering (Not supervised by radiologist): MIP and/or 3D reconstructed images were created by the technologist. Radiation optimization: All CT scans at this facility use at least one of these dose optimization techniques: automated exposure control; mA and/or kV adjustment per patient size (includes targeted exams where dose is matched to clinical indication); or iterative reconstruction. Contrast material: [id number]; Contrast volume: 70 ml; Contrast route: INTRAVENOUS (IV); COMPARISON: CT HEAD WO 05/14/2023 3:27 PM FINDINGS: ANTERIOR CIRCULATION: Right internal carotid artery: Intracranial segment is patent with no significant stenosis or occlusion. No aneurysm. Right middle cerebral artery: No occlusion or significant stenosis. No aneurysm. Right anterior cerebral artery: No occlusion or significant stenosis. No aneurysm. Left internal carotid artery: Intracranial segment is patent with no significant stenosis. No aneurysm. Left middle cerebral artery: No occlusion or significant stenosis. No aneurysm. Left anterior cerebral artery: No occlusion or significant stenosis. No aneurysm. POSTERIOR CIRCULATION: Right vertebral artery: No occlusion or significant stenosis. No aneurysm. Left vertebral artery: No occlusion or significant stenosis. No aneurysm. Basilar artery: No occlusion or significant stenosis. No aneurysm. Right posterior cerebral artery: No occlusion or significant stenosis. No aneurysm. Left posterior cerebral artery: No occlusion or significant stenosis. No aneurysm. HEAD: Brain: No intracranial hemorrhage or extra-axial fluid collection. No evidence of mass effect or midline shift. Breen-white matter differentiation is intact. Cerebral ventricles: Normal. No ventriculomegaly. Bones: Unremarkable. No acute fracture. Paranasal sinuses: Visualized sinuses are normal. No fluid levels. Mastoid air cells: Visualized mastoids are normal. No mastoid effusion. Soft tissues: Unremarkable. IMPRESSION: 1. No intracranial arterial occlusion or significant stenosis. 2. No acute findings on non-contrast Head CT images. ASPECTS score 10. PROCEDURE INFORMATION: Exam: CTA Neck Without And With Contrast Exam date and time: 11/24/2024 9:07 PM Age: 64 years old Clinical indication: MANZANARES, vertigo, HX breast cancer TECHNIQUE: Imaging protocol: Computed tomographic angiography of the neck without and with contrast. Exam focused on the cervical segments of the vasculature. 3D rendering (Not supervised by radiologist): MIP and/or 3D reconstructed images were created by the technologist. Radiation optimization: All CT scans at this facility use at least one of these dose optimization techniques: automated exposure control; mA and/or kV adjustment per patient size (includes targeted exams where dose is matched to clinical indication); or iterative reconstruction. Contrast material: [id number]; Contrast volume: 70 ml; Contrast route: INTRAVENOUS (IV); COMPARISON: CT neck w 05/20/2019 7:01 AM FINDINGS: Right common carotid artery: No significant stenosis. No dissection or occlusion. Right internal carotid artery: Extracranial segment is patent with no significant stenosis (0% stenosis by NASCET criteria). No dissection or occlusion. Right external carotid artery: No occlusion or significant stenosis. Left common carotid artery: No significant stenosis. No dissection or occlusion. Left internal carotid artery: Extracranial segment is patent with no significant stenosis (0% stenosis by NASCET criteria). No dissection or occlusion. Left external carotid artery: No occlusion or significant stenosis. Right vertebral artery: No significant stenosis. No dissection or occlusion. Left vertebral artery: No significant stenosis. No dissection or occlusion. Soft tissues: Unremarkable. Bones/joints: No acute fracture. Lungs: Pleuroparenchymal scarring in the anterior right upper lobe, likely sequela of post treatment change. IMPRESSION: No occlusion or significant stenosis in the arteries of the neck. REFERENCES: NASCET CRITERIA. The degree of stenosis in the cervical segment of the internal carotid artery is based on NASCET criteria. Normal is no stenosis. Mild is less than 50% stenosis. Moderate is 50-69% stenosis. Severe is 70% to 99% stenosis. Total occlusion is no detectable patent lumen. Dictated and Authenticated by: Roberto Mchugh MD. Orderin [facility]. Devin Manzanares MD
[2024-11-24] MEDS: Meclizine 25 MG TAB PO (22:40)
== END 2024-11-24 22:41 | disposition home or self-care (01) ==
PROVIDERS: Emergency Provider Nurse Practitioner Family; PCP Family Medicine
DX: R42 Dizziness and giddiness (principal); R11.10 Vomiting, unspecified; E87.6 Hypokalemia
CPT/HCPCS: 70496; 70498; 80053; 83690; 87426; 93005; 96361; 96374; 96375; 99285; 74177; 84484; 85025; 93010; 99284; J1200; J2405; J3490

== ENCOUNTER 2025-01-09 01:22 | Outpatient (CLI) | payer MEDICARE, BC, SELFPAY ==
--- NOTE | 2025-01-09 06:30 | DI.MRI_ITS ---
Exam(s) MR ANGIO BRAIN WO CLINICAL HISTORY: persistent vertigo, worse as day goes on,dizziness after extension of neck,. TECHNIQUE: 3D [id number] study was performed without contrast. COMPARISON: None. FINDINGS: Carotid Arteries: Petrous: Normal. Cavernous: Normal. Cerebral: Normal. Middle Cerebral Arteries: Right: No aneurysm or significant stenosis. Left: No aneurysm or significant stenosis. Anterior Cerebral Arteries: Right: No aneurysm or significant stenosis. Left: No aneurysm or significant stenosis. Posterior cerebral arteries: Right: No aneurysm or significant stenosis Left: No aneurysm or significant stenosis Vertebral Arteries: Right: No aneurysm or significant stenosis. No dissection. Left: No aneurysm or significant stenosis. No dissection.. Basilar Artery: No aneurysm or significant stenosis. Small Vessels: No evidence of beading. IMPRESSION: Normal MRA examination of the [place]. DATA REPOSITORY:
--- NOTE | 2025-01-09 06:30 | DI.MRI_ITS ---
Exam(s) MR ANGIO NECK WO EXAM: MR ANGIO NECK WO CLINICAL HISTORY: persistent vertigo, worse as the day goes on,[id number]. TECHNIQUE: 2D and 3D [id number] MRA of the Neck was performed. COMPARISON: CT CT BRAIN NECK CTA from 11/24/2024 FINDINGS: Common Carotid: Right: No dissection, occlusion or significant stenosis. Left: No dissection, occlusion or significant stenosis. External Carotid: Right: No evidence of occlusion or significant stenosis. Left: No evidence of occlusion or significant stenosis. Internal Carotid: Right: No dissection, occlusion or significant stenosis. Left: No dissection, occlusion or significant stenosis. Vertebral Artery: Right: No dissection, occlusion or significant stenosis. Left: No dissection, occlusion or significant stenosis. The visualized paraspinal soft tissues are unremarkable. IMPRESSION: No evidence of dissection, occlusion or significant stenosis. DATA REPOSITORY:
--- NOTE | 2025-01-09 06:44 | DI.MRI_ITS ---
Exam(s) MR BRAIN WO/W EXAM: MR BRAIN WO/W CLINICAL HISTORY: h/o breast cancer,persistent vertigo,? mets. TECHNIQUE: Multiplanar multisequence MRI of the brain was performed. CONTRAST MATERIAL: IV Contrast: 17 ML of Dotarem contrast administered. COMPARISON: CT CT BRAIN NECK CTA from 11/24/2024 MR MR ANGIO BRAIN WO from 01/09/2025 FINDINGS: VENTRICLES AND EXTRA AXIAL SPACES: Normal in size and morphology for the patient's age. HEMORRHAGE: None. CEREBRAL PARENCHYMA: No focus of restricted diffusion to suggest acute infarct. No space-occupying le thelma identified. No abnormal high signal lesions in the white matter. BRAINSTEM/CEREBELLUM: Normal. CALVARIUM: Normal. ENHANCEMENT: No suspicious enhancement identified. VISUALIZED PARANASAL SINUSES/MASTOIDS: Clear. Orbits: Unremarkable. Pituitary: Not enlarged. Vasculature: Normal flow voids. IMPRESSION: Unremarkable MRI of the brain. DATA REPOSITORY:
[2025-01-09] MEDS: Gadoterate meglumine 20 ML SYRINGE 17 ML IVP (08:07)
[2025-01-09] MEDS: Normal Saline Flush 10 ML SYR IVP (08:08)
== END 2025-01-09 01:42 ==
LOC: DI 01:23
PROVIDERS: PCP Family Medicine; Visit Provider Family Medicine
DX: R42 Dizziness and giddiness (principal); C50.411 Malignant neoplasm of upper-outer quadrant of right female breast
CPT/HCPCS: 70544; 70547; 70553

== ENCOUNTER 2025-06-11 09:42 | Outpatient (CLI) | payer MEDICARE, BC, SELFPAY ==
--- NOTE | 2025-06-11 08:30 | DI.RAD_ITS ---
Exam(s) XR KNEE RT 2V AP,LAT EXAM: XR KNEE RT 2V AP,LAT CLINICAL HISTORY: ANNUAL F/U R TKA. TECHNIQUE: 2D digital imaging was performed. Two images were obtained. AP and lateral views were obtained. COMPARISON: CR,XR XR KNEE RT 3V AP,LAT,BLAISE from 06/11/2024 CR XR STANDING ALIGNMENT from 06/19/2024 CR XR KNEE RT 1V from 06/19/2024 FINDINGS: BONES: There are stable post operative changes of a right total knee arthroplasty present. No fracture or dislocation. JOINTS: The orthopedic hardware is in good position. There is a lucency seen at the lateral aspect of the femoral component of the orthopedic hardware. SOFT TISSUE: Normal. IMPRESSION: Right total knee arthroplasty is present. There is a lucency seen at the lateral aspect of the femoral component. Loosening or infection should be considered. Follow-up as clinically appropriate. DATA REPOSITORY: RADIATION DOSE DELIVERED:
== END 2025-06-11 09:43 | disposition home or self-care (01) ==
LOC: DIORS 09:42
PROVIDERS: PCP Family Medicine; Visit Provider Physician Assistant
DX: Z47.1 Aftercare following joint replacement surgery (principal); Z96.651 Presence of right artificial knee joint
CPT/HCPCS: 99212; 73560

== ENCOUNTER 2025-09-14 11:29 | Outpatient (CLI) | payer MEDICARE, BC, SELFPAY ==
[2025-09-14 12:15] LABS: ALT 21 U/L (10-49); AST 28 U/L (<34); Albumin 4.3 g/dL (3.2-5.0); Alkaline Phosphatase 91 U/L (46-116); Anion Gap 11 mmol/L (3-11); BUN 18 mg/dL (9-23); Bilirubin, Total 2.4 mg/dL (0.2-1.2); CO2 27.0 mmol/L (20.0-31.0); Calcium 9.5 mg/dL (8.3-10.6); Chloride 105 mmol/L (98-107); Glucose 94 mg/dL (74-106); Potassium 3.2 mmol/L (3.5-5.1); Sodium 143 mmol/L (136-145); Total Protein 7.4 g/dL (5.7-8.2)
[2025-09-14 18:15] LABS: Hepatitis C Ab w Rflx HCV PCR Negative (Negative)
== END 2025-09-14 11:30 | disposition home or self-care (01) ==
LOC: LBO 11:30
PROVIDERS: PCP Family Medicine; Visit Provider Family Medicine
DX: Z11.59 Encounter for screening for other viral diseases (principal); I10 Essential (primary) hypertension
CPT/HCPCS: 36415; 80053; 86803